=== PATIENT | male | born 1965 | race Two or more races ===

== ENCOUNTER 2016-11-13 23:32 | Emergency (ER) | payer MEDICAID ==
[~2016-11-13] VITALS: Ht 162.6 cm; Wt 81.6 kg
[~2016-11-13 23:32] MED LIST: NKM; RANITIDINE HCL150 MG ORAL; ZANTAC150 MG ORAL
--- NOTE | 2016-11-13 23:41 | Emergency Room Report ---
History of Present Illness General Source: Patient Present Illness HPI This is a 51-year-old male who is an alcoholic. He presents with chief complaint of epigastric and left-sided chest pain. Onset for last 3 days. Has been drinking heavily. He doesn't remember he was drinking today. He also has multiple IV damico in EKG leads on him. He doesn't remember which hospital he was at before. He called 911 with chief complaint of chest pain and epigastric pain. Pain is 10 out of 10. EMS gave him nitroglycerin and aspirin. Denies any nausea vomiting. Webster shaky. Denies any diaphoresis. No other complaint. Similar symptoms in the past. Allergies: Coded Allergies: No Known Allergies (Unverified , 10/01/14) Patient History Past Medical History: see triage record, old chart reviewed Past Surgical History: other Pertinent Family History: none Social History: Reports: alcohol use Immunizations: other 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: PMH: Agreed, PSxH: Agreed Review of Systems Eye: Denies: blurred vision, eye pain ENT: Denies: ear pain, nose congestion, throat swelling Respiratory: Denies: cough, shortness of breath Cardiovascular: Reports: chest pain, Denies: palpitations Gastrointestinal: Reports: abdominal pain, Denies: diarrhea, nausea, vomiting Musculoskeletal: Denies: back pain, joint pain Skin: Denies: rash Neurological: Denies: headache, numbness Endocrine: Denies: increased thirst, increased urine Hematologic/Lymphatic: Denies: easy bruising All Other Systems: negative except mentioned in HPI Physical Exam vitals with tachycardia and hypertension Sp02 EP Interpretation: reviewed, normal General Appearance: well appearing, no apparent distress, alert Head: normocephalic, atraumatic Eyes: bilateral eye EOMI, bilateral eye PERRL ENT: hearing grossly normal, normal pharynx Neck: full range of motion, supple, no meningismus Respiratory: chest non-tender, lungs clear, normal breath sounds Cardiovascular #1: regular rate, rhythm, no murmur Gastrointestinal: normal bowel sounds, no mass, no organomegaly, no bruit, non- distended, tenderness - Epigastric Musculoskeletal: back normal, gait/station normal, normal range of motion Neurologic: alert, oriented x3, other - Patient is Mildly tremulous Psychiatric: mood/affect normal Skin: warm/dry Medical Decision Making Diagnostic Impression: Primary Impression: Acute alcohol intoxication Qualified Codes: F10.120 - Alcohol abuse with intoxication, uncomplicated Additional Impressions: Acute gastritis Qualified Codes: K29.20 - Alcoholic gastritis without bleeding Chest pain Qualified Codes: R07.9 - Chest pain, unspecified Alcohol abuse Obesity (BMI 30.0-34.9) ER Course Patient presents with atypical chest pain. Most likely secondary to alcoholic gastritis and possibly reflux. No evidence of pancreatitis. Pain been ongoing for 3 days. Troponin negative. EKG unremarkable. No evidence of ACS, PE, dissection, pneumonia to name a few. Lab Results Impression labs unremarkable EKG Diagnostic Results Rate: normal, tachycardiac Rhythm: NSR ST Segments: no acute changes Rhythm Strip Diag. Results EP Interpretation: yes Rate: 100 Rhythm: NSR, no PVC's, no ectopy Chest X-Ray Diagnostic Results EP Interpretation: Yes Findings: no consolidation, no effusion, no pneumothorax, no acute cardiopulmonary disease Number of Views: 1 Status: improved Disposition: HOME, SELF-CARE Condition: Stable Scripts Chlordiazepoxide (Chlordiazepoxide HCl) 25 Mg Capsule 25 MG ORAL THREE TIMES A DAY, #15 CAP 0 Refills Prov: MUNIR JEAN M.D. 11/14/16 Additional Instructions: Stop drinking alcohol. Go to rehabilitation. Return if symptom worsen. Followup your DrGilberto in 7 days. MUNIR JEAN M.D. Nov 13, 2016 23:41
[2016-11-13] MEDS ORDERED: LORazepam Inj 2mg/ml 1ml IV ONE (23:45)
[2016-11-13] MEDS ORDERED: Pantoprazole Inj IVP ONE (23:45)
[2016-11-14] VITALS: BP 157/83
[2016-11-14 00:03] LABS: BASOPHILS % (AUTO) 0.3 % (0.0-2.0); LYMPHOCYTES % (AUTO) 10.8 % (20.0-45.0); MEAN CORPUSCULAR HEMOGLOBIN 30.2 PG (27.0-31.0); MEAN CORPUSCULAR HGB CONC 34.7 G/DL (32.0-36.0); MEAN CORPUSCULAR VOLUME 87 FL (80-99); MEAN PLATELET VOLUME 8.5 FL (6.5-10.1); MONOCYTES % (AUTO) 4.8 % (1.0-10.0); NEUTROPHILS % (AUTO) 84.1 % (45.0-75.0); PLATELET COUNT 347 K/UL (150-450); RED BLOOD COUNT 4.54 M/UL (4.70-6.10); WHITE BLOOD COUNT 14.9 K/UL (4.8-10.8)
[2016-11-14 00:13] LABS: TROPONIN I < 0.30 ng/mL (<=0.30)
[2016-11-14 00:16] LABS: ALBUMIN/GLOBULIN RATIO 1.2 (1.0-2.7); CALCIUM 7.3 mg/dL (8.6-10.2); CREATININE 1.5 mg/dL (0.7-1.2); GLOMERULAR FILTRATION RATE 49.3 mL/min (>60); POTASSIUM 3.2 mEQ/L (3.4-4.9); TOTAL PROTEIN 6.2 g/dL (6.6-8.7)
[2016-11-14] MEDS ORDERED: LIBRIUM25 MG ORAL (00:45)
[2016-11-14 02:45] VITALS: BP 149/80
[2016-11-14 05:00] VITALS: BP 142/86
--- NOTE | 2016-11-14 09:11 | Diagnostic Imaging Report ---
Indication: Chest pain Technique: XRAY CHEST 1 V Comparison: 01/25/16 Findings: There is poor inspiration with bronchovascular crowding. Cardiac silhouette is stable. There is no pneumothorax or pleural effusion. Degenerative changes of the spine are seen. Impression: Poor inspiration with bronchovascular crowding. Mild congestive changes not excluded. Clinical correlation/followup recommended.
== END 2016-11-14 05:00 | disposition home or self-care (01) ==
LOC: EDBD 23:32 → EMR 23:48
DX: K29.20 Alcoholic gastritis without bleeding (principal); F10.120 Alcohol abuse with intoxication, uncomplicated; R07.9 Chest pain, unspecified; E66.9 Obesity, unspecified; Z68.30 Body mass index [BMI] 30.0-30.9, adult
CPT/HCPCS: 36415; 71010; 80053; 83690; 84484; 85025; 96374; 96375; 99284; C9113

== ENCOUNTER 2017-02-15 18:41 | Emergency (ER) | payer MEDICAID ==
[~2017-02-15] VITALS: Ht 167.6 cm; Wt 81.6 kg
[~2017-02-15 18:41] MED LIST changes: +LIBRIUM25 MG ORAL
[2017-02-15] MEDS ORDERED: LORazepam Inj 2mg/ml 1ml IV ONE (19:00)
[2017-02-15 19:15] VITALS: BP 132/90
[2017-02-15 20:47] LABS: BASOPHILS % (AUTO) 1.1 % (0.0-2.0); EOSINOPHILS % (AUTO) 1.2 % (0.0-3.0); MEAN CORPUSCULAR HEMOGLOBIN 29.6 PG (27.0-31.0); MEAN CORPUSCULAR HGB CONC 34.6 G/DL (32.0-36.0); MEAN CORPUSCULAR VOLUME 86 FL (80-99); MEAN PLATELET VOLUME 9.1 FL (6.5-10.1); MONOCYTES % (AUTO) 4.8 % (1.0-10.0); PLATELET COUNT 149 K/UL (150-450); RED BLOOD COUNT 4.54 M/UL (4.70-6.10); RED CELL DISTRIBUTION WIDTH 13.4 % (11.6-14.8); WHITE BLOOD COUNT 7.3 K/UL (4.8-10.8)
[2017-02-15 21:08] LABS: ACETAMINOPHEN < 10 ug/mL (10-30); ALANINE AMINOTRANSFERASE 43 U/L (3-41); ANION GAP 20 (5-15); ASPARTATE AMINO TRANSFERASE 95 U/L (5-40); CALCIUM 8.4 mg/dL (8.6-10.2); CARBON DIOXIDE 23 mEQ/L (20-30); CHLORIDE 99 mEQ/L (98-107); CREATININE 0.7 mg/dL (0.7-1.2); GLOMERULAR FILTRATION RATE > 60 mL/min (>60); HEMOLYSIS 3; POTASSIUM 3.7 mEQ/L (3.4-4.9); SODIUM 142 mEQ/L (135-145); TOTAL PROTEIN 7.5 g/dL (6.6-8.7)
[2017-02-15 21:14] LABS: ALCOHOL 474 mg/dL
[2017-02-15 21:30] VITALS: BP 123/83
--- NOTE | 2017-02-15 22:11 | Emergency Room Report ---
History of Present Illness General Chief Complaint: General Complaint Source: Patient, EMS Present Illness HPI 51-year-old male presents ED for evaluation. Per EMS patient states he is withdrawing from alcohol. States his last drink was yesterday. Feel tremulous and shaky. Denies any other drug use. Denies fevers or chills. Denies nausea or vomiting. Denies chest pain or shortness of breath. no other aggravating or relieving factors. Denies any other associated symptom Allergies: Coded Allergies: No Known Allergies (Unverified , 10/01/14) Patient History Past Medical History: none Past Surgical History: none Pertinent Family History: none Social History: Reports: alcohol use, Denies: drug use, smoking Immunizations: UTD 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: PMH: Agreed, PSxH: Agreed Nursing Documentation-PMH Past Medical History: No History, Except For Review of Systems All Other Systems: negative except mentioned in HPI Physical Exam Vital Signs Date Time Temp Pulse Resp B/P Pulse Ox O2 Delivery O2 Flow Rate FiO2 02/15/17 18:41 99.0 88 18 140/96 98 Room Air Sp02 EP Interpretation: reviewed, normal General Appearance: no apparent distress, GCS 15, non-toxic, obese, other - intoxicated Head: normocephalic, atraumatic Eyes: bilateral eye PERRL, bilateral eye normal inspection ENT: hearing grossly normal, normal pharynx, no angioedema, normal voice Neck: full range of motion, supple/symm/no masses Respiratory: chest non-tender, lungs clear, normal breath sounds, speaking full sentences Cardiovascular #1: regular rate, rhythm, no edema Cardiovascular #2: 2+ carotid (R), 2+ carotid (L), 2+ radial (R), 2+ radial (L) , 2+ dorsalis pedis (R), 2+ dorsalis pedis (L) Gastrointestinal: normal bowel sounds, non tender, soft, non-distended, no guarding, no rebound Rectal: deferred Genitourinary: normal inspection, no CVA tenderness Musculoskeletal: back normal, gait/station normal, normal range of motion, non- tender, calf tenderness Neurologic: other - intoxicated Psychiatric: other - intoxicated Reflexes: 3+ bicep (R), 3+ bicep (L), 3+ tricep (R), 3+ tricep (L), 3+ knee (R) , 3+ knee (L) Skin: normal color, no rash, warm/dry, well hydrated Lymphatic: no adenopathy Medical Decision Making Diagnostic Impression: Primary Impression: Acute alcohol intoxication Labs Test 02/15/17 20:23 White Blood Count 7.3 K/UL (4.8-10.8) Red Blood Count 4.54 M/UL (4.70-6.10) Hemoglobin 13.4 G/DL (14.2-18.0) Hematocrit 38.8 % (42.0-52.0) Mean Corpuscular Volume 86 FL (80-99) Mean Corpuscular Hemoglobin 29.6 PG (27.0-31.0) Mean Corpuscular Hemoglobin Concent 34.6 G/DL (32.0-36.0) Red Cell Distribution Width 13.4 % (11.6-14.8) Platelet Count 149 K/UL (150-450) Mean Platelet Volume 9.1 FL (6.5-10.1) Neutrophils (%) (Auto) 62.0 % (45.0-75.0) Lymphocytes (%) (Auto) 31.0 % (20.0-45.0) Monocytes (%) (Auto) 4.8 % (1.0-10.0) Eosinophils (%) (Auto) 1.2 % (0.0-3.0) Basophils (%) (Auto) 1.1 % (0.0-2.0) Sodium Level 142 mEQ/L (135-145) Potassium Level 3.7 mEQ/L (3.4-4.9) Chloride Level 99 mEQ/L (98-107) Carbon Dioxide Level 23 mEQ/L (20-30) Anion Gap 20 (5-15) Blood Urea Nitrogen 12 mg/dL (7-23) Creatinine 0.7 mg/dL (0.7-1.2) Estimat Glomerular Filtration Rate > 60 mL/min (>60) Glucose Level 104 mg/dL (74-106) Calcium Level 8.4 mg/dL (8.6-10.2) Total Bilirubin 0.4 mg/dL (0.0-1.2) Aspartate Amino Transf (AST/SGOT) 95 U/L (5-40) Alanine Aminotransferase (ALT/SGPT) 43 U/L (3-41) Alkaline Phosphatase 108 U/L (40-129) Total Protein 7.5 g/dL (6.6-8.7) Albumin 3.8 g/dL (3.5-5.2) Globulin 3.7 g/dL Albumin/Globulin Ratio 1.0 (1.0-2.7) Salicylates Level < 1 mg/dL (10-30) Urine Opiates Screen Negative (NEGATIVE) Acetaminophen Level < 10 ug/mL (10-30) Urine Barbiturates Screen Negative (NEGATIVE) Phencyclidine (PCP) Screen Negative (NEGATIVE) Urine Amphetamines Screen Negative (NEGATIVE) Urine Benzodiazepines Screen Negative (NEGATIVE) Urine Cocaine Screen Negative (NEGATIVE) Urine Marijuana (THC) Screen Negative (NEGATIVE) Serum Alcohol 474 mg/dL Last Vital Signs Date Time Temp Pulse Resp B/P Pulse Ox O2 Delivery O2 Flow Rate FiO2 02/15/17 21:30 99.0 82 20 123/83 100 Room Air Status: improved Disposition: HOME, SELF-CARE Condition: Stable RAVEN BURNS M.D. Feb 15, 2017 22:11
[2017-02-15 22:41] VITALS: BP 131/76
[2017-02-15 22:42] VITALS: BP 123/83
--- NOTE | 2017-02-17 14:01 | Emergency Room Report ---
Physical Exam Vital Signs Date Time Temp Pulse Resp B/P Pulse Ox O2 Delivery O2 Flow Rate FiO2 02/15/17 18:41 99.0 88 18 140/96 98 Room Air Medical Decision Making Diagnostic Impression: Primary Impression: Acute alcohol intoxication Qualified Codes: F10.929 - Alcohol use, unspecified with intoxication, unspecified ER Course Hospital Course 51-year-old male presents ED complaining of shaking, stating he is in withdrawal. Chronic history of alcohol use Differential diagnoses include: Alcohol intoxication, drug abuse, opioid withdrawal, alcohol withdrawal, dehydration, drug seeking behavior Clinical course Patient placed on stretcher. On sandblaster glass. After initial history and physical I ordered labs, IV fluids, Ativan Labs reviewed-electrolytes okay, hemoglobin/hematocrit stable, no leukocytosis, alcohol level > 400, aspirin/Tylenol levels negative patient allowed to sleep. no signs of acute withdrawal or DTs. patient can be safely discharged to home i. I feel this is a highly complex case requiring extensive working including EKG/Rhythm strip, Xray/CT/US, Blood/urine lab work, repeat exams while in ED, and administration of strong opiates/narcotics for pain control, admission to hospital or close patient follow up. Diagnosis - alcohol intoxication Stable and discharged to home. Followup with PMD. Return to ED if symptoms recur or worsen Labs Test 02/15/17 20:23 White Blood Count 7.3 K/UL (4.8-10.8) Red Blood Count 4.54 M/UL (4.70-6.10) Hemoglobin 13.4 G/DL (14.2-18.0) Hematocrit 38.8 % (42.0-52.0) Mean Corpuscular Volume 86 FL (80-99) Mean Corpuscular Hemoglobin 29.6 PG (27.0-31.0) Mean Corpuscular Hemoglobin Concent 34.6 G/DL (32.0-36.0) Red Cell Distribution Width 13.4 % (11.6-14.8) Platelet Count 149 K/UL (150-450) Mean Platelet Volume 9.1 FL (6.5-10.1) Neutrophils (%) (Auto) 62.0 % (45.0-75.0) Lymphocytes (%) (Auto) 31.0 % (20.0-45.0) Monocytes (%) (Auto) 4.8 % (1.0-10.0) Eosinophils (%) (Auto) 1.2 % (0.0-3.0) Basophils (%) (Auto) 1.1 % (0.0-2.0) Sodium Level 142 mEQ/L (135-145) Potassium Level 3.7 mEQ/L (3.4-4.9) Chloride Level 99 mEQ/L (98-107) Carbon Dioxide Level 23 mEQ/L (20-30) Anion Gap 20 (5-15) Blood Urea Nitrogen 12 mg/dL (7-23) Creatinine 0.7 mg/dL (0.7-1.2) Estimat Glomerular Filtration Rate > 60 mL/min (>60) Glucose Level 104 mg/dL (74-106) Calcium Level 8.4 mg/dL (8.6-10.2) Total Bilirubin 0.4 mg/dL (0.0-1.2) Aspartate Amino Transf (AST/SGOT) 95 U/L (5-40) Alanine Aminotransferase (ALT/SGPT) 43 U/L (3-41) Alkaline Phosphatase 108 U/L (40-129) Total Protein 7.5 g/dL (6.6-8.7) Albumin 3.8 g/dL (3.5-5.2) Globulin 3.7 g/dL Albumin/Globulin Ratio 1.0 (1.0-2.7) Salicylates Level < 1 mg/dL (10-30) Urine Opiates Screen Negative (NEGATIVE) Acetaminophen Level < 10 ug/mL (10-30) Urine Barbiturates Screen Negative (NEGATIVE) Phencyclidine (PCP) Screen Negative (NEGATIVE) Urine Amphetamines Screen Negative (NEGATIVE) Urine Benzodiazepines Screen Negative (NEGATIVE) Urine Cocaine Screen Negative (NEGATIVE) Urine Marijuana (THC) Screen Negative (NEGATIVE) Serum Alcohol 474 mg/dL Last Vital Signs Date Time Temp Pulse Resp B/P Pulse Ox O2 Delivery O2 Flow Rate FiO2 02/15/17 22:42 99.0 82 20 123/83 100 Room Air Status: improved Disposition: HOME, SELF-CARE Condition: Stable Referrals: NOT CHOSEN IPA/,REFERRING (PCP) Patient Instructions: Alcohol Abuse and Nutrition RAVEN BURNS M.D. Feb 17, 2017 14:01
== END 2017-02-15 22:42 | disposition home or self-care (01) ==
LOC: EDBD 18:41 → EMR 19:20
DX: F10.929 Alcohol use, unspecified with intoxication, unspecified (principal)
CPT/HCPCS: 36415; 80053; 80300; 80329; 85025; 96360; 96374

== ENCOUNTER 2017-12-30 19:08 | Inpatient (IN) | payer MEDICAID, OTHER ==
[~2017-12-30] VITALS: Ht 167.6 cm; Wt 89.4 kg
[~2017-12-30 19:08] MED LIST changes: +ADVIL200 M2 ORAL; +ANTABUSE; +MAALOX ADVANCE770 ML PO; +MULTI VITAMIN DAILY; +PEPCID40 MG PO; +UNOBMED
[2017-12-30 19:15] VITALS: BP 163/96
[2017-12-30] MEDS ORDERED: Pantoprazole Inj IV ONE (19:30)
--- NOTE | 2017-12-30 19:49 | Emergency Room Report ---
History of Present Illness General Chief Complaint: Gastrointestinal Bleed Source: Patient, EMS Present Illness HPI 52-year-old male presents ED for evaluation. Patient brought in by EMS complaining of abdominal pain with vomiting blood and blood in stool. Started today. Patient describes pain as epigastric, burning, nonradiating. States he' s been drinking every day. Denies any blood thinners. Denies chest pain or shortness of breath. Denies any drug use. No other aggravating relieving factors. Denies any other associated symptoms Allergies: Coded Allergies: No Known Allergies (Unverified , 10/05/14) Patient History Past Medical History: HTN, psych hx Past Surgical History: none Pertinent Family History: none Social History: Reports: alcohol use; Denies: smoking, drug use Immunizations: UTD 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: PMH: Agreed; PSxH: Agreed Nursing Documentation-PMH Past Medical History: No History, Except For Hx Cardiac Problems: Yes Hx Hypertension: Yes Hx Cancer: No Hx Gastrointestinal Problems: Yes History Of Psychiatric Problem: Yes - DEPRESSION Hx Neurological Problems: Yes Hx Tremors: Yes Hx Dizziness: Yes Hx Syncope: Yes Hx Headaches: Yes Review of Systems All Other Systems: negative except mentioned in HPI Physical Exam Vital Signs Date Time Temp Pulse Resp B/P (MAP) Pulse Ox O2 Delivery O2 Flow Rate FiO2 12/30/18 19:03 98.3 102 20 132/81 98 Room Air 98.2 Sp02 EP Interpretation: reviewed, normal General Appearance: no apparent distress, alert, GCS 15, non-toxic, obese Head: normocephalic, atraumatic Eyes: bilateral eye normal inspection, bilateral eye PERRL ENT: hearing grossly normal, normal pharynx, no angioedema, normal voice Neck: full range of motion, supple/symm/no masses Respiratory: chest non-tender, lungs clear, normal breath sounds, speaking full sentences Cardiovascular #1: no edema, tachycardia Cardiovascular #2: 2+ carotid (R), 2+ carotid (L), 2+ radial (R), 2+ radial (L) , 2+ dorsalis pedis (R), 2+ dorsalis pedis (L) Gastrointestinal: normal bowel sounds, soft, non-distended, no guarding, no rebound, tenderness - epigatric Rectal: deferred Genitourinary: normal inspection, no CVA tenderness Musculoskeletal: back normal, gait/station normal, normal range of motion, non- tender Neurologic: alert, oriented x3, responsive, motor strength/tone normal, sensory intact, speech normal Psychiatric: judgement/insight normal, memory normal, mood/affect normal, no suicidal/homicidal ideation Reflexes: 3+ bicep (R), 3+ bicep (L), 3+ tricep (R), 3+ tricep (L), 3+ knee (R) , 3+ knee (L) Skin: normal color, no rash, warm/dry, well hydrated Lymphatic: no adenopathy Medical Decision Making Diagnostic Impression: Primary Impression: GI bleed Qualified Codes: K92.0 - Hematemesis Additional Impression: Alcohol withdrawal Qualified Codes: F10.230 - Alcohol dependence with withdrawal, uncomplicated ER Course Hospital Course 52-year-old male presents ED with vomiting blood and blood in stool. History of alcohol abuse. Differential diagnoses include: Alcohol intoxication, UGIB, LGIB, alcohol withdrawal, dehydration, drug seeking behavior Clinical course Patient placed on stretcher. On air sampling and monitoring. After initial history and physical I ordered labs, IV fluids, Ativan, Protonix, Zofran, EKG Labs reviewed-electrolytes okay, hemoglobin/hematocrit stable, no leukocytosis, alcohol level > 300, lfts elevated EKG - sinus tachycardia, no acute ischemic changes intepreted by me Tachycardia slowly resolving with IV hydration, Ativan. Case discussed with Dr. Wilson and he agreed to except the patient to his service for further care and support i. I feel this is a highly complex case requiring extensive working including EKG/Rhythm strip, Xray/CT/US, Blood/urine lab work, repeat exams while in ED, and administration of strong opiates/narcotics for pain control, admission to hospital or close patient follow up. Diagnosis - alcohol withdrawal, UGIB Admitted to telemetry in serious condition Labs Test 12/30/17 19:30 White Blood Count 6.7 K/UL (4.8-10.8) Red Blood Count 5.04 M/UL (4.70-6.10) Hemoglobin 14.4 G/DL (14.2-18.0) Hematocrit 43.1 % (42.0-52.0) Mean Corpuscular Volume 86 FL (80-99) Mean Corpuscular Hemoglobin 28.5 PG (27.0-31.0) Mean Corpuscular Hemoglobin Concent 33.4 G/DL (32.0-36.0) Red Cell Distribution Width 13.1 % (11.6-14.8) Platelet Count 216 K/UL (150-450) Mean Platelet Volume 8.4 FL (6.5-10.1) Neutrophils (%) (Auto) 52.5 % (45.0-75.0) Lymphocytes (%) (Auto) 32.8 % (20.0-45.0) Monocytes (%) (Auto) 8.0 % (1.0-10.0) Eosinophils (%) (Auto) 5.2 % (0.0-3.0) Basophils (%) (Auto) 1.4 % (0.0-2.0) Prothrombin Time 9.4 SEC (9.30-11.50) Prothromb Time International Ratio 0.9 (0.9-1.1) Activated Partial Thromboplast Time 25 SEC (23-33) Urine Color Sheba Urine Appearance Clear Urine pH 6 (4.5-8.0) Urine Specific Chapman 1.015 (1.005-1.035) Urine Protein 2+ (NEGATIVE) Urine Glucose (UA) Negative (NEGATIVE) Urine Ketones Negative (NEGATIVE) Urine Occult Blood 1+ (NEGATIVE) Urine Nitrite Negative (NEGATIVE) Urine Bilirubin Negative (NEGATIVE) Urine Ictotest Negative Urine Urobilinogen Normal MG/DL (0.0-1.0) Urine Leukocyte Esterase Negative (NEGATIVE) Urine RBC 2-4 /HPF (0 - 0) Urine WBC 0-2 /HPF (0 - 0) Urine Squamous Epithelial Cells None /LPF (NONE/OCC) Urine Bacteria Few /HPF (NONE) Sodium Level 139 MMOL/L (136-145) Potassium Level 4.0 MMOL/L (3.5-5.1) Chloride Level 102 MMOL/L (98-107) Carbon Dioxide Level 24 MMOL/L (21-32) Anion Gap 13 mmol/L (5-15) Blood Urea Nitrogen 20 mg/dL (7-18) Creatinine 0.8 MG/DL (0.55-1.30) Estimat Glomerular Filtration Rate > 60 mL/min (>60) Glucose Level 125 MG/DL (74-106) Calcium Level 8.6 MG/DL (8.5-10.1) Total Bilirubin 0.3 MG/DL (0.2-1.0) Aspartate Amino Transf (AST/SGOT) 88 U/L (15-37) Alanine Aminotransferase (ALT/SGPT) 74 U/L (12-78) Alkaline Phosphatase 119 U/L (46-116) Total Creatine Kinase 557 U/L (26-308) Creatine Kinase MB 5.7 NG/ML (0.0-3.6) Creatine Kinase MB Relative Index 1.0 Total Protein 7.8 G/DL (6.4-8.2) Albumin 3.5 G/DL (3.4-5.0) Globulin 4.3 g/dL Albumin/Globulin Ratio 0.8 (1.0-2.7) Lipase 291 U/L (73-393) Serum Alcohol 392 mg/dL EKG Diagnostic Results Rate: tachycardiac Rhythm: NSR ST Segments: no acute changes ASA given to the pt in ED: No Rhythm Strip Diag. Results EP Interpretation: yes Rhythm: NSR, no PVC's, no ectopy Last Vital Signs Date Time Temp Pulse Resp B/P (MAP) Pulse Ox O2 Delivery O2 Flow Rate FiO2 12/30/17 19:03 98.3 102 20 132/81 98 Room Air 98.2 Status: improved Disposition: ADMITTED INPATIENT Condition: Serious Mode Ballesteros MD Dec 30, 2017 19:49
[2017-12-30] MEDS ORDERED: LORazepam Inj 2mg/ml 1ml IV ONE (20:00)
[2017-12-30 20:25] LABS: BASOPHILS % (AUTO) 1.4 % (0.0-2.0); EOSINOPHILS % (AUTO) 5.2 % (0.0-3.0); HEMATOCRIT 43.1 % (42.0-52.0); HEMOGLOBIN 14.4 G/DL (14.2-18.0); LYMPHOCYTES % (AUTO) 32.8 % (20.0-45.0); MEAN CORPUSCULAR VOLUME 86 FL (80-99); NEUTROPHILS % (AUTO) 52.5 % (45.0-75.0); PLATELET COUNT 216 K/UL (150-450); RED BLOOD COUNT 5.04 M/UL (4.70-6.10); RED CELL DISTRIBUTION WIDTH 13.1 % (11.6-14.8); WHITE BLOOD COUNT 6.7 K/UL (4.8-10.8)
[2017-12-30 20:26] LABS: APPEARANCE,URINE CLEAR; BILIRUBIN, URINE NEGATIVE (NEGATIVE); COLOR,URINE AMBER; GLUCOSE, URINE (UA) NEGATIVE (NEGATIVE); KETONES,URINE NEGATIVE (NEGATIVE); LEUKOCYTE ESTERASE ,URINE NEGATIVE (NEGATIVE); NITRITE,URINE NEGATIVE (NEGATIVE); PH,URINE 6 (4.5-8.0); PROTEIN,URINE 2+ (NEGATIVE); UROBILINOGEN,URINE NORMAL MG/DL (0.0-1.0)
[2017-12-30 20:33] LABS: INR 0.9 (0.9-1.1)
[2017-12-30 20:34] LABS: ANION GAP 13 mmol/L (5-15); BLOOD UREA NITROGEN 20 mg/dL (7-18); CALCIUM 8.6 MG/DL (8.5-10.1); CARBON DIOXIDE 24 MMOL/L (21-32); CHLORIDE 102 MMOL/L (98-107); CREATININE 0.8 MG/DL (0.55-1.30); SODIUM 139 MMOL/L (136-145)
[2017-12-30 20:47] LABS: ALANINE AMINOTRANSFERASE 74 U/L (12-78); ALBUMIN 3.5 G/DL (3.4-5.0); ALBUMIN/GLOBULIN RATIO 0.8 (1.0-2.7); ALKALINE PHOSPHATASE 119 U/L (46-116); ASPARTATE AMINO TRANSFERASE 88 U/L (15-37); BILIRUBIN,TOTAL 0.3 MG/DL (0.2-1.0); CKMB 5.7 NG/ML (0.0-3.6); CREATINE KINASE 557 U/L (26-308)
[2017-12-30] MEDS ORDERED: Morphine Sulfate 4mg/ml Inj IVP ONE (21:30)
[2017-12-30 22:00] VITALS: BP 111/81
[2017-12-30] MEDS: D5 1/2NS 1,000 ML IV SCH (23:00)
[2017-12-30] MEDS ORDERED: D5 1/2NS 1,000 ML IV SCH (23:00)
[2017-12-30] MEDS: Thiamine 100mg tab ORAL SCH (23:36)
[2017-12-31] VITALS: BP 127/75
[2017-12-31 04:00] VITALS: BP 144/94
[2017-12-31] MEDS: LORazepam Inj 2mg/ml 1ml IV PRN ×4 (04:10→20:21)
[2017-12-31] MEDS: D5 1/2NS 1,000 ML IV SCH ×3 (05:35→19:00)
[2017-12-31 07:41] LABS: ALANINE AMINOTRANSFERASE 63 U/L (12-78); ALBUMIN 3.1 G/DL (3.4-5.0); ALBUMIN/GLOBULIN RATIO 0.8 (1.0-2.7); ALKALINE PHOSPHATASE 103 U/L (46-116); ANION GAP 10 mmol/L (5-15); ASPARTATE AMINO TRANSFERASE 80 U/L (15-37); BILIRUBIN,TOTAL 0.5 MG/DL (0.2-1.0); BLOOD UREA NITROGEN 16 mg/dL (7-18); CALCIUM 7.8 MG/DL (8.5-10.1); CARBON DIOXIDE 26 MMOL/L (21-32); CHLORIDE 101 MMOL/L (98-107); CREATINE KINASE 416 U/L (26-308); CREATININE 0.8 MG/DL (0.55-1.30); POTASSIUM 3.6 MMOL/L (3.5-5.1); SODIUM 137 MMOL/L (136-145)
[2017-12-31 08:00] VITALS: BP 156/92
[2017-12-31] MEDS: Pantoprazole Inj IVP SCH (09:00)
[2017-12-31] MEDS: Thiamine 100mg tab ORAL SCH (09:00)
[2017-12-31 09:02] LABS: BASOPHILS % (AUTO) 1.2 % (0.0-2.0); EOSINOPHILS % (AUTO) 5.6 % (0.0-3.0); HEMATOCRIT 37.4 % (42.0-52.0); LYMPHOCYTES % (AUTO) 30.5 % (20.0-45.0); MEAN CORPUSCULAR VOLUME 85 FL (80-99); MONOCYTES % (AUTO) 6.2 % (1.0-10.0); NEUTROPHILS % (AUTO) 56.6 % (45.0-75.0); PLATELET COUNT 159 K/UL (150-450); RED BLOOD COUNT 4.38 M/UL (4.70-6.10); WHITE BLOOD COUNT 6.2 K/UL (4.8-10.8)
[2017-12-31 12:00] VITALS: BP 130/81
[2017-12-31] MEDS: HYDROcodone/Acetamin 10/325 tab ORAL PRN ×2 (12:57→21:34)
[2017-12-31] MEDS ORDERED: D5 1/2NS 1000ml IV ONE (15:50)
[2017-12-31] MEDS ORDERED: Tubing IV Secondary IV ONE (15:50)
[2017-12-31 16:00] VITALS: BP 140/91
[2017-12-31 20:00] VITALS: BP 160/96
--- NOTE | 2017-12-31 23:45 | Progress Note ---
DATE: 12/31/2017 INTERNAL MEDICINE PROGRESS NOTE SUBJECTIVE: The patient is tremulous. He complains of abdominal pain. No nausea or vomiting noted. Stools are normal with no blood. OBJECTIVE: VITAL SIGNS: Blood pressure 140/91, pulse 79, respirations 18, and afebrile. NECK: Supple. LUNGS: Clear. CARDIAC: Regular. ABDOMEN: Soft. Slightly distended. Diffusely tender. No guarding or rebound. EXTREMITIES: With no edema. LABORATORY DATA: CK is down to 416. Albumin is 3.1. BUN 16 and creatinine 0.8. Potassium 3.6. White count 6.2 and hemoglobin 13. IMPRESSION: 1. No signs of recurring gastrointestinal bleed. 2. Alcohol withdrawal symptoms. 3. Alcoholism. 4. Alcohol intoxication. 5. History of hypertension. PLAN: 1. Continue hydration. 2. Vitamin supplementation. 3. Withdrawal precautions. 4. Serial hemoglobin. 5. Proton pump inhibitor. 6. Monitor and replace electrolytes accordingly. 7. Not stable for discharge. Carrillo Wilson M.D. DR: ZORA JOB#: [id number] CC:
[2018-01-01] VITALS: BP 150/119
--- NOTE | 2018-01-01 01:45 | History and Physical Report ---
DATE OF ADMISSION: 12/30/2017 REASON FOR ADMISSION: GI bleed and alcohol intoxication. HISTORY OF PRESENT ILLNESS: This is a 52-year-old male. He was brought into the emergency room by paramedics complaining of abdominal pain. He apparently vomited some blood and had some bloody stool today. He also has had burning midepigastric pain. He has been drinking daily for several weeks. No other constitutional symptoms noted. No illicit drug use noted. PAST MEDICAL HISTORY: Hypertension and depression. MEDICATIONS: Prior to admission, none. ALLERGIES: None. SOCIAL HISTORY: Alcoholism. Nonsmoker. No substance abuse. REVIEW OF SYSTEMS: A 10-point review of systems performed. All systems negative other than noted above. PHYSICAL EXAMINATION: VITAL SIGNS: Afebrile, blood pressure 132/81, pulse 102, respiratory rate 20, and room air oxygen 98% saturation. HEENT: Normocephalic and atraumatic. Conjunctivae pink. Sclerae are anicteric. Oropharynx clear. Mucous membranes moist. NECK: Supple. Jugular venous pressure normal. LUNGS: Clear. CARDIAC: Regular rhythm and rate. Normal S1 and S2. No murmur, rub, or gallop. ABDOMEN: Somewhat distended. Midepigastric tenderness. No guarding or rebound. Soft and no ascites. No CVA tenderness. SKIN: Without rashes or ecchymoses. EXTREMITIES: With no edema. NEUROLOGIC: Some resting tremor. No asterixis. LABORATORY AND DIAGNOSTIC DATA: White count 6.7 and hemoglobin 14.4. Potassium 4, BUN 20, and creatinine 0.8. AST and ALT 88/74 and alkaline phosphatase 119. CK 567. Albumin is 3.5. Alcohol level was over 300. IMPRESSION: 1. Upper GI bleeding, likely due to alcoholism. 2. Acute alcohol intoxication. 3. Alcoholism. 4. Rhabdomyolysis. 5. Transaminitis. PLAN: Withdrawal precautions. Volume resuscitation. Vitamin supplementation. Benzodiazepine p.r.n. for withdrawal. H2 blockade. Liquid diet. Serial hemoglobin. We will follow. Carrillo Wilson M.D. DR: FABRIZIO JOB#: [id number] CC:
[2018-01-01] MEDS: D5 1/2NS 1,000 ML IV SCH ×2 (02:55→12:35)
[2018-01-01 04:00] VITALS: BP 113/93
[2018-01-01 08:00] VITALS: BP 162/92
[2018-01-01] MEDS: Pantoprazole Inj IVP SCH (09:59)
[2018-01-01] MEDS: Thiamine 100mg tab ORAL SCH (09:59)
[2018-01-01 12:00] VITALS: BP 160/96
--- NOTE | 2018-01-03 17:12 | Discharge Summary ---
Discharge Summary Discharge Summary Discharge Summary DATE OF ADMISSION: 12/30/2017 DATE OF DISCHARGE: 01/01/2018 BRIEF HOSPITAL COURSE: Patient is a 52-year-old male, he was brought into emergency room by paramedics complaining of abdominal pain. He apparently vomited blood and had bloody stool. He also complained of burning mid epigastric pain. He had been drinking daily for several weeks. He denied any illicit drug use. He has medical history significant for hypertension and depression. He has medical history significant for depression and hypertension. On evaluation at ED, WBC was 6.7, hemoglobin 14.4, alcohol level was over 300. AST 88, ALT 74, alkaline phosphatase 119. CK 567. BUN 14, creatinine 0.8. He was admitted for upper GI bleed likely due to alcoholism. He was placed on withdrawal precautions and was given volume resuscitation. He was placed on liquid diet. He was given thiamine and folic acid, he was given medication replacements, he was placed on lorazepam prn.. Treatment was not carried out as patient left AGAINST MEDICAL ADVICE. FINAL DIAGNOSES: GI bleed possibly due to alcoholism Alcohol withdrawal symptoms Alcoholism Alcohol intoxication History of hypertension Rhabdomyolysis Transaminitis DISPOSITION: Patient left AMA I have been assigned to dictate discharge summary on this account, and I was not involved in the patient's management. Oliva Melendrez NP Jan 03, 2018 17:12
== END 2018-01-01 13:08 | disposition left against medical advice (07) | DRG 253 ==
LOC: EDBD 19:08 → EMR 19:46 → MERGE 20:30 → 2E 20:30 → EDBEDREQ 20:54
DX: K92.2 Gastrointestinal hemorrhage, unspecified (principal); M62.82 Rhabdomyolysis; I10 Essential (primary) hypertension; F10.239 Alcohol dependence with withdrawal, unspecified; F10.229 Alcohol dependence with intoxication, unspecified; R74.0 Nonspecific elevation of levels of transaminase and lactic acid dehydrogenase [LDH]
CPT/HCPCS: 36415; 80053; 80329; 81003; 82330; 82550; 82553; 83690; 84443; 85025; 85610; 85730; 86850; 86900; 86901; 93005; 99285; J2405

== ENCOUNTER 2018-02-13 06:07 | Inpatient (IN) | payer OTHER ==
[~2018-02-13] VITALS: Ht 160 cm; Wt 95.0 kg
[2018-02-13 06:15] VITALS: BP 140/97
[2018-02-13] MEDS ORDERED: Morphine Sulfate 4mg/ml Inj IVP ONE ×2 (06:30→14:15)
--- NOTE | 2018-02-13 06:35 | Emergency Room Report ---
History of Present Illness General Chief Complaint: Alcohol Intoxication Source: Patient, EMS Present Illness HPI The patient presents with abdominal pain. He's been drinking heavily for 3 weeks. He's been drinking hard liquor. He's had pancreatitis in the past and complains about epigastric pain. He states it's 9/10 and constant. It radiates somewhat to his back but is mainly in his stomach. He also states he' s been vomiting red material and also when he moves his bowels it is also read. In addition when he urinates he states is also red. He states he is passing blood clots per rectum. The patient denies any fevers, chills, cough, extremity pain, calf pain, swelling, loss of consciousness or seizures. He was admitted in December with alleged GI bleed. 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: PMH: Agreed; PSxH: Agreed Nursing Documentation-PMH Past Medical History: No History, Except For Hx Hypertension: Yes Hx Cancer: No Hx Gastrointestinal Problems: Yes - Pancreatitis Hx Neurological Problems: Yes Hx Tremors: Yes Hx Dizziness: Yes Hx Syncope: Yes - related to EtOH Hx Headaches: Yes Review of Systems All Other Systems: negative except mentioned in HPI Physical Exam Vital Signs Date Time Temp Pulse Resp B/P (MAP) Pulse Ox O2 Delivery O2 Flow Rate FiO2 02/13/18 06:00 98.2 87 16 155/97 98 Room Air 98.2 Sp02 EP Interpretation: reviewed, normal General Appearance: well appearing, no apparent distress, GCS 15 Head: normocephalic Eyes: bilateral eye PERRL, bilateral eye Scleral Injection ENT: moist mucus membranes Neck: supple Respiratory: lungs clear, normal breath sounds Cardiovascular #1: regular rate, rhythm Cardiovascular #2: 2+ radial (R) Gastrointestinal: normal inspection, normal bowel sounds, no mass, non- distended, no rebound, guarding - Epigastric, tenderness, overweight Rectal: heme negative stool - yellow Musculoskeletal: back normal, normal range of motion Neurologic: alert, oriented x3, 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 The differential includes gastritis, peptic ulcer disease, GERD, pancreatitis amongst others. Evaluation will be with EKG, chest and abdominal x-rays, labs. The patient will be treated with IV hydration, Pepcid, Zofran and morphine. Stool is guaiac negative although he claims he is vomiting and passing blood in stool and urine. The patient is improved with pain medication and Pepcid but still complains of severe pain. Labs are significant for normal lipase and blood alcohol of greater than 400. White count and hemoglobin/hematocrit are normal. EKG no injury. Chest x-ray unremarkable. Abdominal film with paucity of gas and large liver. Patient observed over a substantial period of time. He is reevaluated and still has significant abdominal pain with guarding without rebound - the pain is epigastric. Due to the severe nature of the pain the patient will be admitted to the hospital for observation. There is a possibility that he could have some withdrawal from alcohol even though he claims he has only been using heavily for the last [address] Rodriguez for admission. He requested consult by Dr. Frye ( contacted and agreed to see patient). Laboratory Tests Test 02/13/18 06:15 02/13/18 10:00 White Blood Count 8.3 K/UL (4.8-10.8) Red Blood Count 5.47 M/UL (4.70-6.10) Hemoglobin 15.6 G/DL (14.2-18.0) Hematocrit 45.8 % (42.0-52.0) Mean Corpuscular Volume 84 FL (80-99) Mean Corpuscular Hemoglobin 28.6 PG (27.0-31.0) Mean Corpuscular Hemoglobin Concent 34.1 G/DL (32.0-36.0) Red Cell Distribution Width 12.7 % (11.6-14.8) Platelet Count 337 K/UL (150-450) Mean Platelet Volume 8.7 FL (6.5-10.1) Neutrophils (%) (Auto) 50.0 % (45.0-75.0) Lymphocytes (%) (Auto) 43.0 % (20.0-45.0) Monocytes (%) (Auto) 4.6 % (1.0-10.0) Eosinophils (%) (Auto) 1.0 % (0.0-3.0) Basophils (%) (Auto) 1.4 % (0.0-2.0) Prothrombin Time 11.0 SEC (9.30-11.50) Prothrombin Time INR 1.1 (0.9-1.1) PTT 27 SEC (23-33) Sodium Level 135 MMOL/L (136-145) L Potassium Level 3.9 MMOL/L (3.5-5.1) Chloride Level 96 MMOL/L (98-107) L Carbon Dioxide Level 26 MMOL/L (21-32) Anion Gap 13 mmol/L (5-15) Blood Urea Nitrogen 24 mg/dL (7-18) H Creatinine 1.0 MG/DL (0.55-1.30) Estimate Glomerular Filtration Rate > 60 mL/min (>60) Glucose Level 137 MG/DL (74-106) H Calcium Level 8.0 MG/DL (8.5-10.1) L Total Bilirubin 0.5 MG/DL (0.2-1.0) Aspartate Amino Transferase (AST) 73 U/L (15-37) H Alanine Aminotransferase (ALT) 70 U/L (12-78) Alkaline Phosphatase 135 U/L (46-116) H Troponin I 0.029 ng/mL (0.000-0.056) Total Protein 8.1 G/DL (6.4-8.2) Albumin 3.8 G/DL (3.4-5.0) Globulin 4.3 g/dL Albumin/Globulin Ratio 0.9 (1.0-2.7) L Lipase 315 U/L (73-393) Serum Alcohol 418 mg/dL Urine Color Pale yellow Urine Appearance Clear Urine pH 6 (4.5-8.0) Urine Specific [place] 1.015 (1.005-1.035) Urine Protein 1+ (NEGATIVE) H Urine Glucose (UA) Negative (NEGATIVE) Urine Ketones Negative (NEGATIVE) Urine Occult Blood Negative (NEGATIVE) Urine Nitrite Negative (NEGATIVE) Urine Bilirubin Negative (NEGATIVE) Urine Urobilinogen Normal MG/DL (0.0-1.0) Urine Leukocyte Esterase Negative (NEGATIVE) Urine RBC 0-2 /HPF (0 - 0) H Urine WBC 0-2 /HPF (0 - 0) Urine Squamous Epithelial Cells Occasional /LPF Urine Bacteria Occasional /HPF (NONE) Urine Opiates Screen Positive (NEGATIVE) H Urine Barbiturates Screen Negative (NEGATIVE) Phencyclidine (PCP) Screen Negative (NEGATIVE) Urine Amphetamines Screen Negative (NEGATIVE) Urine Benzodiazepines Screen Negative (NEGATIVE) Urine Cocaine Screen Negative (NEGATIVE) Urine Marijuana (THC) Screen Negative (NEGATIVE) EKG Diagnostic Results Rate: normal Rhythm: NSR ST Segments: no acute changes Rhythm Strip Diag. Results EP Interpretation: yes Rhythm: NSR, no PVC's Chest X-Ray Diagnostic Results Chest X-Ray Diagnostic Results : Chest X-Ray Ordered: Yes # of Views/Limited/Complete: 1 View Indication: Other EP Interpretation: Yes Interpretation: no consolidation, no effusion, no pneumothorax Impression: No acute disease Electronically Signed by: Electronically signed by Carrillo Hill MD Other X-Ray Diagnostic Results Other X-Ray Diagnostic Results : X-Ray ordered: Abdomen # of Views/Limited Vs Complete: 1 View Indication: Pain EP Interpretation: Yes Interpretation: nonspecific bowel gas, no sbo, other - Enlarged liver Impression: Other Electronically Signed by: Electronically signed by Carrillo Hill MD Last Vital Signs Date Time Temp Pulse Resp B/P (MAP) Pulse Ox O2 Delivery O2 Flow Rate FiO2 02/13/18 20:23 97.9 83 19 147/85 99 97.9 02/13/18 18:27 Room Air Status: improved Disposition: ADMITTED INPATIENT Condition: Serious Carrillo Hill M.D. Feb 13, 2018 06:35
[2018-02-13 06:52] LABS: INR 1.1 (0.9-1.1)
[2018-02-13 06:56] LABS: BASOPHILS % (AUTO) 1.4 % (0.0-2.0); HEMATOCRIT 45.8 % (42.0-52.0); HEMOGLOBIN 15.6 G/DL (14.2-18.0); MEAN CORPUSCULAR VOLUME 84 FL (80-99); MONOCYTES % (AUTO) 4.6 % (1.0-10.0); PLATELET COUNT 337 K/UL (150-450); RED BLOOD COUNT 5.47 M/UL (4.70-6.10); RED CELL DISTRIBUTION WIDTH 12.7 % (11.6-14.8); WHITE BLOOD COUNT 8.3 K/UL (4.8-10.8)
[2018-02-13 07:08] LABS: ANION GAP 13 mmol/L (5-15); BLOOD UREA NITROGEN 24 mg/dL (7-18); CARBON DIOXIDE 26 MMOL/L (21-32); CHLORIDE 96 MMOL/L (98-107); POTASSIUM 3.9 MMOL/L (3.5-5.1); SODIUM 135 MMOL/L (136-145)
[2018-02-13 07:14] LABS: ALANINE AMINOTRANSFERASE 70 U/L (12-78); ALBUMIN 3.8 G/DL (3.4-5.0); ALBUMIN/GLOBULIN RATIO 0.9 (1.0-2.7); ALKALINE PHOSPHATASE 135 U/L (46-116); ASPARTATE AMINO TRANSFERASE 73 U/L (15-37); BILIRUBIN,TOTAL 0.5 MG/DL (0.2-1.0)
[2018-02-13 08:23] VITALS: BP 145/96
[2018-02-13 10:12] LABS: APPEARANCE,URINE CLEAR; BILIRUBIN, URINE NEGATIVE (NEGATIVE); COLOR,URINE PALE YELLOW; GLUCOSE, URINE (UA) NEGATIVE (NEGATIVE); KETONES,URINE NEGATIVE (NEGATIVE); LEUKOCYTE ESTERASE ,URINE NEGATIVE (NEGATIVE); NITRITE,URINE NEGATIVE (NEGATIVE); PH,URINE 6 (4.5-8.0); PROTEIN,URINE 1+ (NEGATIVE); UROBILINOGEN,URINE NORMAL MG/DL (0.0-1.0)
[2018-02-13 11:49] VITALS: BP 152/91
--- NOTE | 2018-02-13 13:44 | Diagnostic Imaging Report ---
Indication: Abdominal pain Technique: Supine view of the abdomen Comparison: none Findings: Exam is limited due to patient body habitus, portable technique. Bowel gas pattern is unremarkable. The liver equivocally appears enlarged. No unusual masses or calcifications. Impression: No acute process Possible hepatomegaly This agrees with the preliminary interpretation provided by the emergency room physician
--- NOTE | 2018-02-13 13:45 | Diagnostic Imaging Report ---
Indication: Chest and abdominal pain Technique: One view of the chest Comparison: 11/13/2016 Findings: The heart is mildly enlarged. The aorta is tortuous. The lungs and pleural spaces are clear. There is no significant interim change Impression: No acute process This agrees with the preliminary interpretation provided by the emergency room physician
[2018-02-13 16:54] VITALS: BP 129/71
[2018-02-13] MEDS ORDERED: CALCIUM500 M3 PO (17:34)
[2018-02-13] MEDS ORDERED: MULTIVITAMINS1 EAC2 ORAL (17:34)
[2018-02-13 18:26] VITALS: BP_SYST 121; BP_SYST 129; BP_DIAS 69; BP_DIAS 71
[2018-02-13 20:23] VITALS: BP 147/85
[2018-02-13] MEDS: Morphine Sulfate 4mg/ml Inj IVP PRN (22:40)
[2018-02-14 00:40] VITALS: BP 132/79
[2018-02-14 04:33] VITALS: BP 148/83
[2018-02-14] MEDS: Morphine Sulfate 4mg/ml Inj IVP PRN ×3 (06:27→18:31)
[2018-02-14 06:53] LABS: ANION GAP 10 mmol/L (5-15); BLOOD UREA NITROGEN 19 mg/dL (7-18); CALCIUM 8.3 MG/DL (8.5-10.1); CARBON DIOXIDE 27 MMOL/L (21-32); CHLORIDE 94 MMOL/L (98-107); CREATININE 0.8 MG/DL (0.55-1.30); POTASSIUM 3.9 MMOL/L (3.5-5.1); SODIUM 131 MMOL/L (136-145)
[2018-02-14 07:03] LABS: BASOPHILS % (AUTO) 1.5 % (0.0-2.0); HEMATOCRIT 38.1 % (42.0-52.0); HEMOGLOBIN 13.6 G/DL (14.2-18.0); LYMPHOCYTES % (AUTO) 22.7 % (20.0-45.0); MEAN CORPUSCULAR VOLUME 84 FL (80-99); MONOCYTES % (AUTO) 5.2 % (1.0-10.0); NEUTROPHILS % (AUTO) 68.7 % (45.0-75.0); PLATELET COUNT 225 K/UL (150-450); RED BLOOD COUNT 4.56 M/UL (4.70-6.10); RED CELL DISTRIBUTION WIDTH 12.5 % (11.6-14.8); WHITE BLOOD COUNT 9.7 K/UL (4.8-10.8)
[2018-02-14 08:08] VITALS: BP 146/99
[2018-02-14] MEDS: Pantoprazole Inj IVP SCH (09:00)
[2018-02-14] MEDS: Folic Acid 1 MG, Magnesium Sulfate 2,000 MG, Multivitamin - 12 Injection 10 ML in NS w/... IV SCH (10:56)
[2018-02-14] MEDS: Thiamine 100mg IVPB (Q24H) IVPB SCH ×2 (10:56)
[2018-02-14 11:31] VITALS: BP 152/97
--- NOTE | 2018-02-14 14:44 | GI Initial Consult Note ---
History of Present Illness General Date patient seen: Feb 14, 2018 Time patient seen: 15:00 Reason for Hospitalization: Alcohol Intoxication Referring physician: MEHRAN WALTON Reason for Consultation: ETOH INTOXICATION Present Illness HPI The patient presents with abdominal pain. He's been drinking heavily for 3 weeks. He's been drinking hard liquor. He's had pancreatitis in the past and complains about epigastric pain. He states it's 9/10 and constant. It radiates somewhat to his back but is mainly in his stomach. He also states he' s been vomiting red material and also when he moves his dialysis also read. In addition when he urinates he states is also red. He states he is passing blood clots. The patient denies any fevers, chills, cough, extremity pain, calf pain, swelling, loss of consciousness or seizures. He was admitted in December with alleged GI bleed. GI consulted for abdominal pain. HPI as noted above, pt stated depression has been his reason to drinking so heavily. He presents today with anemia, transaminitis and elevated ETOH serum levels. KUB was unremarkable, Abdominal US is pending. Unknown history of EGD/colonoscopy. Home Meds Reported Medications Calcium Carbonate (CALCIUM) 500 Mg Tab.chew, 500 MG PO 02/13/18 Multivitamins* (MULTIVITAMINS*) 1 Each Tablet, 1 TAB ORAL DAILY 02/13/18 Discontinued Reported Medications Ibuprofen* (ADVIL*) 200 Mg Capsule, 200 MG ORAL Q6H, CAP 02/25/15 Discontinued Scripts Chlordiazepoxide (Chlordiazepoxide HCl) 25 Mg Capsule, 25 MG ORAL THREE TIMES A DAY, #15 CAP 0 Refills Prov:MUNIR JEAN M.D. 11/14/16 Ranitidine Hcl* (ZANTAC*) 150 Mg Tablet, 150 MG ORAL DAILY, #30 TAB 0 Refills Prov:Jesus Santos MD 09/01/16 Ranitidine Hcl* (ZANTAC*) 150 Mg Tablet, 150 MG ORAL TWICE A DAY, #30 TAB Prov:Mode Ballesteros MD 01/25/16 Famotidine (PEPCID) 40 Mg Tablet, 40 MG PO DAILY, #14 TAB 0 Refills Prov:Shaneka Knowles DO 10/22/15 Mag Hydrox/Al Hydrox/Simeth (Maalox Advanced Suspension) 770 Ml Oral.susp, 100 ML PO BID for 7 Days, ML Prov:Shaneka Knowles DO 10/22/15 Med list reviewed/reconciled: Yes Allergies: Coded Allergies: No Known Allergies (Unverified , 10/01/14) Patient History History Provided By: Patient, Medical Record PMH Narrative Past Medical History: see triage record Social History: Reports: alcohol use Social History Narrative 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: PMH: Agreed; PSxH: Agreed Nursing Documentation-PMH Past Medical History: No History, Except For Hx Hypertension: Yes Hx Cancer: No Hx Gastrointestinal Problems: Yes - Pancreatitis Hx Neurological Problems: Yes Hx Tremors: Yes Hx Dizziness: Yes Hx Syncope: Yes - related to EtOH Hx Headaches: Yes Social History: Reports: alcohol use Review of Systems All Other Systems: negative except mentioned in HPI Physical Exam Vital Signs Date Time Temp Pulse Resp B/P (MAP) Pulse Ox O2 Delivery O2 Flow Rate FiO2 02/13/18 06:00 98.2 87 16 155/97 98 Room Air 98.2 Sp02 EP Interpretation: reviewed, normal Labs Laboratory Tests Test 02/14/18 05:45 White Blood Count 9.7 K/UL (4.8-10.8) Red Blood Count 4.56 M/UL (4.70-6.10) L Hemoglobin 13.6 G/DL (14.2-18.0) L Hematocrit 38.1 % (42.0-52.0) L Mean Corpuscular Volume 84 FL (80-99) Mean Corpuscular Hemoglobin 29.8 PG (27.0-31.0) Mean Corpuscular Hemoglobin Concent 35.7 G/DL (32.0-36.0) Red Cell Distribution Width 12.5 % (11.6-14.8) Platelet Count 225 K/UL (150-450) Mean Platelet Volume 8.4 FL (6.5-10.1) Neutrophils (%) (Auto) 68.7 % (45.0-75.0) Lymphocytes (%) (Auto) 22.7 % (20.0-45.0) Monocytes (%) (Auto) 5.2 % (1.0-10.0) Eosinophils (%) (Auto) 2.0 % (0.0-3.0) Basophils (%) (Auto) 1.5 % (0.0-2.0) Sodium Level 131 MMOL/L (136-145) L Potassium Level 3.9 MMOL/L (3.5-5.1) Chloride Level 94 MMOL/L (98-107) L Carbon Dioxide Level 27 MMOL/L (21-32) Anion Gap 10 mmol/L (5-15) Blood Urea Nitrogen 19 mg/dL (7-18) H Creatinine 0.8 MG/DL (0.55-1.30) Estimat Glomerular Filtration Rate > 60 mL/min (>60) Glucose Level 96 MG/DL (74-106) Calcium Level 8.3 MG/DL (8.5-10.1) L General Appearance: well appearing, no apparent distress, alert Head: normocephalic EENT: PERRL/EOMI, normal ENT inspection Neck: supple Respiratory: normal breath sounds, no respiratory distress Cardiovascular: normal rate Gastrointestinal: normal inspection, non tender, soft, normal bowel sounds, non -distended Rectal: deferred Genitourinary: deferred Musculoskeletal: normal inspection, back normal Neurologic: normal inspection, alert, oriented x3, responsive Psychiatric: normal inspection, judgement/insight normal, memory normal Skin: normal inspection, normal color, no rash, warm/dry, palpation normal, well hydrated Lymphatic: normal inspection, no adenopathy Current Medications Current Medications Medications (Trade) Dose Ordered Sig/Edy Route PRN Reason Start Time Stop Time Status Last Admin Dose Admin Folic Acid 1 mg/ Magnesium Sulfate 2000 mg/ Multivitamins 10 ml/Sodium Chloride 1,014.2 ml @ 125 mls/ hr Q24H IV 02/14/18 10:00 03/16/18 09:59 02/14/18 10:56 Morphine Sulfate (Morphine Sulfate) 2 mg EVERY 6 HOURS PRN IVP Severe Pain (Pain Scale 7-10) 02/13/18 20:00 02/20/18 19:59 02/14/18 12:30 Ondansetron HCl (Zofran) 4 mg Q6H PRN IVP Nausea & Vomiting 02/13/18 20:00 03/15/18 19:59 Pantoprazole (Protonix) 40 mg DAILY IVP 02/14/18 09:00 03/16/18 08:59 02/14/18 09:00 Thiamine HCl 100 mg/Dextrose 56 ml @ 112 mls/hr Q24H IVPB 02/14/18 10:00 03/16/18 09:59 02/14/18 10:56 GI: Plan Problems: (1) Abdominal pain (2) Alcohol abuse (3) Alcohol withdrawal (4) Melena (5) Anemia Plan abdominal US pending banana bag x 1 EGD scheduled tomorrow given reports of hematemesis and melena. - okay to adv to low sodium diet after abdominal US, NPO @ MN. - hold all blood thinners anemia work up OB stool r/o GI bleed monitor H&H, prn transfusions ppi fu labs Discussed with Dr. Frye. Thank you for this patient referral, we will follow. The patient was seen and examined at bedside and all new and available data was reviewed in the patients chart. I agree with the above findings, impression and plan. (Patient seen earlier today. Signature stamp does not reflect patient encounter time.). - MD Amelia Del CidBanner Del E Webb Medical CenterTremayne DIRECTOR STRATEGY Feb 14, 2018 14:44
[2018-02-14 15:48] VITALS: BP 145/97
--- NOTE | 2018-02-14 19:30 | History and Physical Report ---
DATE OF ADMISSION: 02/13/2018 HISTORY OF PRESENT ILLNESS: This is a 52-year-old male, who reports heavy alcohol use for three weeks. He drinks hard liquor. He reports in the past he has had pancreatitis. He came to the hospital with epigastric pain. He also states he has been having hematemesis as well as melena. However, on evaluation by the ER physician, his stool was guaiac negative and his hemoglobin is 15. He reports a previous history of being admitted to the hospital with gastrointestinal bleed in the past. I reviewed his old records and noted that he was discharged from this hospital on 01/01/2018. At that time, he was admitted with a similar presentation. The patient, at that time, left AMA. I also noted in the past, he has been seen by Gastroenterology and outpatient endoscopy and colonoscopy has been recommended. PAST MEDICAL HISTORY: Notable for hypertension, depression, and chronic alcohol abuse. HOME MEDICATIONS: None reported. SOCIAL HISTORY: He admits to alcohol use. He is a nonsmoker. No history of substance abuse. REVIEW OF SYSTEMS: He denies any headaches. He admits to having melena, but as discussed above, his stool is OB negative. No weight loss. PHYSICAL EXAMINATION: GENERAL: Reveals an obese male. VITAL SIGNS: Blood pressure is 140/90, heart rate 94, respiratory rate 18, and he is afebrile. HEENT: Unremarkable. CHEST: Clear breath sounds bilaterally. ABDOMEN: Soft. NEUROLOGIC: Nonfocal. LABORATORY DATA: Lab testing shows hemoglobin of 15 now 13.6, white count 9.7, and platelet count is 225,000. Chemistry shows creatinine of 0.8, albumin of 8.3, and troponin 0.029. Coagulation studies are negative. Toxicology shows urine positive for opiates. Alcohol in serum is elevated to 418. Urinalysis shows negative data. The patient's lipase is 315. IMAGING STUDIES: The patient underwent abdominal x-rays, which were negative. An x-ray of chest was also obtained that was negative for any acute pathology. IMPRESSION: 1. Chronic alcohol abuse. 2. Gastritis. 3. Hypertension. DISCUSSION: Admitted to the hospital. The patient is still on liquid diet and still requiring pain medications. I will consult Gastroenterology. Continue clear liquid diet and DVT prophylaxis. We will order morphine, folic acid, thiamine, Protonix, and SCDs. CBC in the morning. We will follow carefully. Chandana Rodriguez M.D. DR: GENNA JOB#: [id number] CC:
[2018-02-14 20:30] VITALS: BP 160/100
[2018-02-15] VITALS (11 sets, daily range): BP systolic 134–159; BP diastolic 80–104
[2018-02-15] MEDS: Morphine Sulfate 4mg/ml Inj IVP PRN ×2 (00:52→09:13)
[2018-02-15 06:37] LABS: EOSINOPHILS % (AUTO) 4.9 % (0.0-3.0); HEMATOCRIT 38.6 % (42.0-52.0); HEMOGLOBIN 13.2 G/DL (14.2-18.0); LYMPHOCYTES % (AUTO) 22.9 % (20.0-45.0); MEAN CORPUSCULAR VOLUME 84 FL (80-99); NEUTROPHILS % (AUTO) 65.2 % (45.0-75.0); PLATELET COUNT 169 K/UL (150-450); RED BLOOD COUNT 4.59 M/UL (4.70-6.10); RED CELL DISTRIBUTION WIDTH 12.5 % (11.6-14.8); WHITE BLOOD COUNT 6.7 K/UL (4.8-10.8)
[2018-02-15 06:42] LABS: INR 0.9 (0.9-1.1)
--- NOTE | 2018-02-15 07:08 | Anethesia Preoperative Eval ---
Anesthesia Pre-op PMH/ROS General Date of Evaluation: Feb 15, 2018 Time of Evaluation: 07:08 ASA Score: ASA 3 Mallampati Score Class I : Soft palate, uvula, fauces, pillars visible Class II: Soft palate, uvula, fauces visible Class III: Soft palate, base of uvula visible Class IV: Only hard plate visible Mallampati Classification: Class II Surgeon: jno Diagnosis: hematemesis Surgical Procedure: egd Anesthesia History: none Social History: current smoker, alcohol use Family History: no anesthesia problems Allergies: Coded Allergies: No Known Allergies (Unverified , 10/01/14) Medications: see eMAR Past Medical History Cardiovascular: Reports: HTN, other - syncope Pulmonary: Reports: other - bronchitis Gastrointestinal/Genitourinary: Reports: other - acute renal failure, gastritis , fatty liver, pancreatitis Neurologic/Psychiatric: Reports: depression/anxiety, other - acute etoh intoxification Other: obesity Anesthesia Pre-op Phys. Exam Physician Exam Last Vital Signs Date Time Temp Pulse Resp B/P (MAP) Pulse Ox O2 Delivery O2 Flow Rate FiO2 02/15/18 04:00 98.6 106 18 152/104 98 98.6 02/14/18 20:30 Room Air Constitutional: NAD Neurologic: CN 2-12 intact Cardiovascular: RRR Respiratory: CTA Gastrointestinal: S/NT/ND Airway Exam Mallampati Score: Class II MO: full Neck: short TMD: 2fb ROM: full Teeth: intact Anesthesia Pre-op A/P Labs Hematology Test 02/15/18 05:30 White Blood Count 6.7 K/UL (4.8-10.8) Red Blood Count 4.59 M/UL (4.70-6.10) L Hemoglobin 13.2 G/DL (14.2-18.0) L Hematocrit 38.6 % (42.0-52.0) L Mean Corpuscular Volume 84 FL (80-99) Mean Corpuscular Hemoglobin 28.7 PG (27.0-31.0) Mean Corpuscular Hemoglobin Concent 34.1 G/DL (32.0-36.0) Red Cell Distribution Width 12.5 % (11.6-14.8) Platelet Count 169 K/UL (150-450) Mean Platelet Volume 8.4 FL (6.5-10.1) Neutrophils (%) (Auto) 65.2 % (45.0-75.0) Lymphocytes (%) (Auto) 22.9 % (20.0-45.0) Monocytes (%) (Auto) 6.0 % (1.0-10.0) Eosinophils (%) (Auto) 4.9 % (0.0-3.0) H Basophils (%) (Auto) 1.0 % (0.0-2.0) Reticulocyte Count Pending Coagulation Test 02/15/18 05:30 Prothrombin Time 9.4 SEC (9.30-11.50) Prothromb Time International Ratio 0.9 (0.9-1.1) Activated Partial Thromboplast Time 24 SEC (23-33) Chemistry Test 02/15/18 05:30 Sodium Level Pending Potassium Level Pending Chloride Level Pending Carbon Dioxide Level Pending Blood Urea Nitrogen Pending Creatinine Pending Estimat Glomerular Filtration Rate Pending Glucose Level Pending Calcium Level Pending Iron Level Pending Unsaturated Iron Binding Pending Ferritin Pending Carcinoembryonic Antigen Pending Vitamin B12 Level Pending Folate Pending Thyroid Stimulating Hormone (TSH) Pending Free Thyroxine Pending Risk Assessment & Plan Assessment: asa3 Plan: mac Status Change Before Surgery: No Pre-Antibiotics Drug: Anna Anaya MD Feb 15, 2018 07:08
[2018-02-15 07:13] LABS: % IRON SATURATION 92 % (15-50); IRON 271 ug/dL (50-175); TOTAL IRON BINDING CAPACITY 295 ug/dL (250-450)
[2018-02-15 07:26] LABS: ANION GAP 9 mmol/L (5-15); BLOOD UREA NITROGEN 9 mg/dL (7-18); CALCIUM 8.5 MG/DL (8.5-10.1); CARBON DIOXIDE 26 MMOL/L (21-32); CHLORIDE 97 MMOL/L (98-107); CREATININE 0.8 MG/DL (0.55-1.30); FERRITIN 325 NG/ML (8-388); POTASSIUM 3.4 MMOL/L (3.5-5.1); SODIUM 132 MMOL/L (136-145)
--- NOTE | 2018-02-15 08:48 | Pulmonology Progress Note ---
Assessment/Plan Assessment/Plan IMPRESSION: 1. Chronic alcohol abuse. 2. Gastritis. 3. Hypertension. DISCUSSION: For endoscopy today Hgb still 13 Continue clear liquid diet and DVT prophylaxis. Subjective Interval Events: None Constitutional: Reports: no symptoms HEENT: Repors: no symptoms Respiratory: Reports: no symptoms Cardiovascular: Reports: no symptoms Gastrointestinal/Abdominal: Reports: no symptoms Allergies: Coded Allergies: No Known Allergies (Unverified , 10/01/14) Objective Last 24 Hour Vital Signs Date Time Temp Pulse Resp B/P (MAP) Pulse Ox O2 Delivery O2 Flow Rate FiO2 02/15/18 08:00 98.8 107 20 134/100 94 98.8 02/15/18 04:00 98.6 106 18 152/104 98 98.6 02/15/18 01:22 98.6 02/15/18 00:52 98.6 02/14/18 20:30 99 Room Air 02/14/18 20:30 98.6 105 19 160/100 99 98.6 02/14/18 18:31 98.2 02/14/18 15:48 98.2 95 20 145/97 98 98.2 02/14/18 12:30 98.2 02/14/18 11:31 98.2 79 20 152/97 98 98.2 Intake and Output 02/14/18 02/15/18 19:00 07:00 Intake Total 2501 ml 139.2 ml Output Total 1200 ml Balance 1301 ml 139.2 ml Intake Oral 1570 ml IV Total 931 ml 139.2 ml Output Urine Total 1200 ml # Voids 3 # Bowel Movements 1 General Appearance: no acute distress HEENT: normocephalic Respiratory/Chest: chest wall non-tender, lungs clear Cardiovascular: normal peripheral pulses, normal rate Abdomen: normal bowel sounds Laboratory Tests 02/15/18 05:30: White Blood Count 6.7, Red Blood Count 4.59L, Hemoglobin 13.2L, Hematocrit 38.6L , Mean Corpuscular Volume 84, Mean Corpuscular Hemoglobin 28.7, Mean Corpuscular Hemoglobin Concent 34.1, Red Cell Distribution Width 12.5, Platelet Count 169, Mean Platelet Volume 8.4, Neutrophils (%) (Auto) 65.2, Lymphocytes (% ) (Auto) 22.9, Monocytes (%) (Auto) 6.0, Eosinophils (%) (Auto) 4.9H, Basophils (%) (Auto) 1.0, Reticulocyte Count 1.2, Prothrombin Time 9.4, Prothromb Time International Ratio 0.9, Activated Partial Thromboplast Time 24, Sodium Level 132L, Potassium Level 3.4L, Chloride Level 97L, Carbon Dioxide Level 26, Anion Gap 9, Blood Urea Nitrogen 9, Creatinine 0.8, Estimat Glomerular Filtration Rate > 60, Glucose Level 105, Calcium Level 8.5, Iron Level 271H, Total Iron Binding Capacity 295, Percent Iron Saturation 92H, Unsaturated Iron Binding 24L , Ferritin 325, Carcinoembryonic Antigen [Pending], Vitamin B12 Level 680, Folate 18.0, Thyroid Stimulating Hormone (TSH) 2.853, Free Thyroxine 1.21 Current Medications Medications (Trade) Dose Ordered Sig/Edy Route PRN Reason Start Time Stop Time Status Last Admin Dose Admin Folic Acid 1 mg/ Magnesium Sulfate 2000 mg/ Multivitamins 10 ml/Sodium Chloride 1,014.2 ml @ 125 mls/ hr Q24H IV 02/14/18 10:00 03/16/18 09:59 02/14/18 10:56 Morphine Sulfate (Morphine Sulfate) 2 mg EVERY 6 HOURS PRN IVP Severe Pain (Pain Scale 7-10) 02/13/18 20:00 02/20/18 19:59 02/15/18 00:52 Ondansetron HCl (Zofran) 4 mg Q6H PRN IVP Nausea & Vomiting 02/13/18 20:00 03/15/18 19:59 Pantoprazole (Protonix) 40 mg DAILY IVP 02/14/18 09:00 03/16/18 08:59 02/14/18 09:00 Thiamine HCl 100 mg/Dextrose 56 ml @ 112 mls/hr Q24H IVPB 02/14/18 10:00 03/16/18 09:59 02/14/18 10:56 Chandana Rodriguez MD Feb 15, 2018 08:48
[2018-02-15] MEDS: Pantoprazole Inj IVP SCH (09:16)
[2018-02-15 09:51] LABS: ALANINE AMINOTRANSFERASE 137 U/L (12-78); ALBUMIN 3.5 G/DL (3.4-5.0); ALKALINE PHOSPHATASE 129 U/L (46-116); ASPARTATE AMINO TRANSFERASE 131 U/L (15-37); BILIRUBIN,DIRECT 0.3 MG/DL (0.0-0.3); BILIRUBIN,TOTAL 1.4 MG/DL (0.2-1.0)
[2018-02-15] MEDS ORDERED: Midazolam 2mg/2ml Inj IVP PRN (10:15)
[2018-02-15] MEDS ORDERED: Atropine Inj 1mg/10ml Syr IV PRN (10:15)
[2018-02-15] MEDS ORDERED: fentaNYL 100 mcg/2 mL IV PRN (10:15)
[2018-02-15] MEDS ORDERED: DiphenhydrAMINE 50mg/ml Inj IVP PRN (10:15)
[2018-02-15] MEDS ORDERED: Lidocaine 1% MPF 10mg/ml 5ml ONE (10:30)
[2018-02-15] MEDS ORDERED: Midazolam 2mg/2ml Inj ONE (10:30)
[2018-02-15] MEDS ORDERED: Propofol 200mg/20ml IV ONE (10:30)
[2018-02-15] MEDS ORDERED: NS 500ML IVPB ONE (10:35)
--- NOTE | 2018-02-15 10:57 | Pre-Procedure Note/Attestation ---
Pre-Procedure Note/Attestation Complete Prior to Procedure Planned Procedure: not applicable Procedure Narrative: egd Indications for Procedure Pre-Operative Diagnosis: gib Attestation I attest that I discussed the nature of the procedure; its benefits; risks and complications; and alternatives (and the risks and benefits of such alternatives ), prior to the procedure, with the patient (or the patient's legal contact representative). I attest that, if there was a reasonable possibility of needing a blood transfusion, the patient (or the patient's legal contact representative) was given the [facility] standardized written summary, pursuant to the Ricci Brain Blood Safety Act ([place] Health and Safety Code # 1645, as amended). I attest that I re-evaluated the patient just prior to the surgery and that there has been no change in the patient's H&P, except as documented below: Tyler Frye MD Feb 15, 2018 10:57
--- NOTE | 2018-02-15 11:03 | Endoscopy Procedure Note ---
Endoscopy Procedure Note General Indication for Procedure: gib Procedures Performed: EGD Operative Findings/Diagnosis: gastritis Specimen: yes Pt Tolerated Procedure Well: Yes Estimated Blood Loss: none Anesthesia Anesthesiologist: isidra Anesthesia: MAC Inserted Devices Implant(s) used?: No GI Core Measures 50 yrs or older w/o bx or poly: Not Applicable 10yrs. F/U not recommended: Not Applicable Tyler Frye MD Feb 15, 2018 11:03
[2018-02-15] MEDS: Folic Acid 1 MG, Magnesium Sulfate 2,000 MG, Multivitamin - 12 Injection 10 ML in NS w/... IV SCH (12:42)
[2018-02-15] MEDS: Thiamine 100mg IVPB (Q24H) IVPB SCH ×2 (12:42)
--- NOTE | 2018-02-15 13:54 | Immediate Post-Op Evaluation ---
Immediate Post-Op Evalulation Immediate Post-Op Evalulation Procedure: egd Date of Evaluation: Feb 15, 2018 Time of Evaluation: 11:22 IV Fluids: 200ml 0.9ns Blood Products: none Estimated Blood Loss: negligible Blood Pressure Systolic: 154 Blood Pressure Diastolic: 89 Pulse Rate: 116 Respiratory Rate: 18 O2 Sat by Pulse Oximetry: 99 Temperature (Fahrenheit): 98.1 Pain Score (1-10): 0 Nausea: No Vomiting: No Complications none Patient Status: awake, reacts, patent Hydration Status: adequate Drug: Anna Anaya MD Feb 15, 2018 13:54
--- NOTE | 2018-02-15 13:56 | 48 Hour Post Anesthesia Eval ---
Post Anesthesia Evaluation Procedure: egd Date of Evaluation: Feb 15, 2018 Time of Evaluation: 11:24 Blood Pressure Systolic: 159 0: 89 Pulse Rate: 110 Respiratory Rate: 18 Temperature (Fahrenheit): 98.1 O2 Sat by Pulse Oximetry: 99 Airway: patent Nausea: No Vomiting: No Pain Intensity: 0 Hydration Status: adequate Cardiopulmonary Status: stable Mental Status/LOC: patient returned to baseline Post-Anesthesia Complications: none Follow-up care needed: N/A Anna Del Valle MD Feb 15, 2018 13:56
--- NOTE | 2018-02-15 16:15 | Procedure Note ---
DATE OF PROCEDURE: 02/15/2018 SURGEON: Tyler Frye M.D. ANESTHESIOLOGIST: Dr. Flannery. PROCEDURE: Upper endoscopy with biopsy. ANESTHESIA: Per Dr. Flannery. INSTRUMENT: Olympus adult flexible upper endoscope. INDICATION: GI bleeding. The procedure, risks, benefits, and possible consequences, including hemorrhage, aspiration, perforation and infection, and alternative treatments, were explained to the patient/legal guardian by Dr. Tyler Frye and the patient/legal guardian understood and accepted these risks. DESCRIPTION OF PROCEDURE: After informed consent was obtained and the patient was adequately sedated, Olympus upper endoscope was advanced from the mouth into the second portion of the duodenum and retroflexion was performed in the stomach. The patient had diffuse gastritis. Random biopsy from antrum was obtained to rule out H. pylori infection. The rest of the upper endoscopic examination was grossly within normal limit. No obvious mass or varices was seen. The patient tolerated procedure well without any complication. SUMMARY OF FINDINGS: Gastritis, status post biopsy. RECOMMENDATIONS: Follow up biopsy results and treat accordingly. Tyler Frye M.D. DR: Wendy JOB#: [id number] CC:
[2018-02-16] VITALS: BP 143/90
[2018-02-16 04:42] VITALS: BP 148/82
[2018-02-16 08:25] VITALS: BP 146/89
[2018-02-16 08:25] LABS: BASOPHILS % (AUTO) 0.9 % (0.0-2.0); EOSINOPHILS % (AUTO) 4.9 % (0.0-3.0); HEMATOCRIT 39.8 % (42.0-52.0); HEMOGLOBIN 13.9 G/DL (14.2-18.0); LYMPHOCYTES % (AUTO) 25.6 % (20.0-45.0); MEAN CORPUSCULAR VOLUME 85 FL (80-99); MONOCYTES % (AUTO) 4.4 % (1.0-10.0); NEUTROPHILS % (AUTO) 64.2 % (45.0-75.0); PLATELET COUNT 164 K/UL (150-450); RED BLOOD COUNT 4.67 M/UL (4.70-6.10); RED CELL DISTRIBUTION WIDTH 12.8 % (11.6-14.8); WHITE BLOOD COUNT 9.1 K/UL (4.8-10.8)
[2018-02-16] MEDS: Pantoprazole Inj IVP SCH (08:30)
[2018-02-16 08:45] LABS: ANION GAP 11 mmol/L (5-15); BLOOD UREA NITROGEN 12 mg/dL (7-18); CALCIUM 8.7 MG/DL (8.5-10.1); CARBON DIOXIDE 23 MMOL/L (21-32); CHLORIDE 97 MMOL/L (98-107); POTASSIUM 3.3 MMOL/L (3.5-5.1); SODIUM 131 MMOL/L (136-145)
--- NOTE | 2018-02-16 09:16 | Pulmonology Progress Note ---
Assessment/Plan Assessment/Plan IMPRESSION: 1. Chronic alcohol abuse. 2. Gastritis. 3. Hypertension. DISCUSSION: S/p endoscopy Hgb still 13 Advance diet DC home Subjective Interval Events: Better; s/p EGD_ gastritis Constitutional: Reports: no symptoms HEENT: Repors: no symptoms Respiratory: Reports: no symptoms Cardiovascular: Reports: no symptoms Gastrointestinal/Abdominal: Reports: no symptoms Genitourinary: Reports: no symptoms Allergies: Coded Allergies: No Known Allergies (Unverified , 10/01/14) Objective Last 24 Hour Vital Signs Date Time Temp Pulse Resp B/P (MAP) Pulse Ox O2 Delivery O2 Flow Rate FiO2 02/16/18 08:25 98.2 96 20 146/89 97 Room Air 98.2 02/16/18 04:42 97.8 76 19 148/82 98 Room Air 97.8 02/16/18 00:00 97.9 89 22 143/90 98 Room Air 97.9 02/15/18 20:00 98.6 90 20 135/80 96 Room Air 98.6 02/15/18 16:00 98.0 100 20 137/90 98 98.0 02/15/18 16:00 Room Air 02/15/18 13:56 208.6 110 18 99 02/15/18 13:54 208.6 116 18 99 02/15/18 12:10 99.0 107 19 141/83 94 99.0 02/15/18 12:10 Room Air 02/15/18 11:45 97.8 108 17 142/86 98 97.8 02/15/18 11:30 104 15 134/85 97 02/15/18 11:25 106 18 138/94 95 02/15/18 11:20 110 15 159/89 99 02/15/18 11:15 109 14 155/85 97 02/15/18 11:10 98.1 116 18 154/89 99 98.1 Intake and Output 02/15/18 02/16/18 19:00 07:00 Intake Total 1302 ml 375 ml Balance 1302 ml 375 ml Intake Oral 440 ml IV Total 862 ml 375 ml # Voids 2 2 General Appearance: no acute distress HEENT: normocephalic Respiratory/Chest: chest wall non-tender, lungs clear Cardiovascular: normal peripheral pulses Abdomen: normal bowel sounds Extremities: no cyanosis Laboratory Tests 02/16/18 00:30: Stool Occult Blood [Pending] 02/16/18 07:40: White Blood Count 9.1, Red Blood Count 4.67L, Hemoglobin 13.9L, Hematocrit 39.8L , Mean Corpuscular Volume 85, Mean Corpuscular Hemoglobin 29.8, Mean Corpuscular Hemoglobin Concent 35.0, Red Cell Distribution Width 12.8, Platelet Count 164, Mean Platelet Volume 10.1, Neutrophils (%) (Auto) 64.2, Lymphocytes ( %) (Auto) 25.6, Monocytes (%) (Auto) 4.4, Eosinophils (%) (Auto) 4.9H, Basophils (%) (Auto) 0.9, Sodium Level 131L, Potassium Level 3.3L, Chloride Level 97L, Carbon Dioxide Level 23, Anion Gap 11, Blood Urea Nitrogen 12, Creatinine 1.0, Estimat Glomerular Filtration Rate > 60, Glucose Level 132H, Calcium Level 8.7 Current Medications Medications (Trade) Dose Ordered Sig/Edy Route PRN Reason Start Time Stop Time Status Last Admin Dose Admin Folic Acid 1 mg/ Magnesium Sulfate 2000 mg/ Multivitamins 10 ml/Sodium Chloride 1,014.2 ml @ 125 mls/ hr Q24H IV 02/14/18 10:00 03/16/18 09:59 02/15/18 12:42 Morphine Sulfate (Morphine Sulfate) 2 mg EVERY 6 HOURS PRN IVP Severe Pain (Pain Scale 7-10) 02/13/18 20:00 02/20/18 19:59 02/15/18 09:13 Ondansetron HCl (Zofran) 4 mg Q6H PRN IVP Nausea & Vomiting 02/13/18 20:00 03/15/18 19:59 Pantoprazole (Protonix) 40 mg DAILY IVP 02/14/18 09:00 03/16/18 08:59 02/16/18 08:30 Thiamine HCl 100 mg/Dextrose 56 ml @ 112 mls/hr Q24H IVPB 02/14/18 10:00 03/16/18 09:59 02/15/18 12:42 Chandana Rodriguez MD Feb 16, 2018 09:16
[2018-02-16] MEDS ORDERED: PROTONIX20 MG ORAL (09:17)
[2018-02-16] MEDS: Folic Acid 1 MG, Magnesium Sulfate 2,000 MG, Multivitamin - 12 Injection 10 ML in NS w/... IV SCH (10:00)
[2018-02-16] MEDS: Thiamine 100mg IVPB (Q24H) IVPB SCH ×2 (10:00)
--- NOTE | 2018-02-16 10:37 | GI Progress Note ---
Assessment/Plan Problems: (1) Abdominal pain ICD Codes: R10.9 - Abdominal pain SNOMED: 01277108 Qualifiers: Qualified Codes: R10.13 - Epigastric pain (2) Alcohol withdrawal ICD Codes: F10.239 - Alcohol dependence with withdrawal, unspecified SNOMED: 198050099 (3) Anemia ICD Codes: D64.9 - Anemia SNOMED: 963855330 (4) Alcohol abuse ICD Codes: F10.10 - Alcohol abuse, uncomplicated SNOMED: 46528913 (5) Melena ICD Codes: K92.1 - Melena SNOMED: 5310140 (6) Acute alcohol intoxication ICD Codes: F10.129 - Alcohol abuse with intoxication, unspecified SNOMED: 72176977 Status: stable Status Narrative Discussed with Dr. Frye. Assessment/Plan SUMMARY OF FINDINGS: Gastritis, status post biopsy. okay for DC per GI standpoint adv diet OB stool r/o GI bleed monitor H&H, prn transfusions ppi trend LFTs avoid alcohol fu labs, biopsy results Subjective Gastrointestinal/Abdominal: Reports: no symptoms Objective Last 24 Hour Vital Signs Date Time Temp Pulse Resp B/P (MAP) Pulse Ox O2 Delivery O2 Flow Rate FiO2 02/16/18 08:25 98.2 96 20 146/89 97 Room Air 98.2 02/16/18 04:42 97.8 76 19 148/82 98 Room Air 97.8 02/16/18 00:00 97.9 89 22 143/90 98 Room Air 97.9 02/15/18 20:00 98.6 90 20 135/80 96 Room Air 98.6 02/15/18 16:00 98.0 100 20 137/90 98 98.0 02/15/18 16:00 Room Air 02/15/18 13:56 208.6 110 18 99 02/15/18 13:54 208.6 116 18 99 02/15/18 12:10 99.0 107 19 141/83 94 99.0 02/15/18 12:10 Room Air 02/15/18 11:45 97.8 108 17 142/86 98 97.8 02/15/18 11:30 104 15 134/85 97 02/15/18 11:25 106 18 138/94 95 02/15/18 11:20 110 15 159/89 99 02/15/18 11:15 109 14 155/85 97 02/15/18 11:10 98.1 116 18 154/89 99 98.1 Intake and Output 02/15/18 02/16/18 19:00 07:00 Intake Total 1302 ml 375 ml Balance 1302 ml 375 ml Intake Oral 440 ml IV Total 862 ml 375 ml # Voids 2 2 Laboratory Tests Test 02/16/18 00:30 02/16/18 07:40 Stool Occult Blood Pending White Blood Count 9.1 K/UL (4.8-10.8) Red Blood Count 4.67 M/UL (4.70-6.10) L Hemoglobin 13.9 G/DL (14.2-18.0) L Hematocrit 39.8 % (42.0-52.0) L Mean Corpuscular Volume 85 FL (80-99) Mean Corpuscular Hemoglobin 29.8 PG (27.0-31.0) Mean Corpuscular Hemoglobin Concent 35.0 G/DL (32.0-36.0) Red Cell Distribution Width 12.8 % (11.6-14.8) Platelet Count 164 K/UL (150-450) Mean Platelet Volume 10.1 FL (6.5-10.1) Neutrophils (%) (Auto) 64.2 % (45.0-75.0) Lymphocytes (%) (Auto) 25.6 % (20.0-45.0) Monocytes (%) (Auto) 4.4 % (1.0-10.0) Eosinophils (%) (Auto) 4.9 % (0.0-3.0) H Basophils (%) (Auto) 0.9 % (0.0-2.0) Sodium Level 131 MMOL/L (136-145) L Potassium Level 3.3 MMOL/L (3.5-5.1) L Chloride Level 97 MMOL/L (98-107) L Carbon Dioxide Level 23 MMOL/L (21-32) Anion Gap 11 mmol/L (5-15) Blood Urea Nitrogen 12 mg/dL (7-18) Creatinine 1.0 MG/DL (0.55-1.30) Estimat Glomerular Filtration Rate > 60 mL/min (>60) Glucose Level 132 MG/DL (74-106) H Calcium Level 8.7 MG/DL (8.5-10.1) Height (Feet): 5 Height (Inches): 3.00 Weight (Pounds): 209 General Appearance: WD/WN, no apparent distress, alert Cardiovascular: normal rate Respiratory/Chest: normal breath sounds, no respiratory distress Abdominal Exam: normal bowel sounds, non tender, soft Extremities: normal range of motion, non-tender Bob Cisneros NP Feb 16, 2018 10:37
--- NOTE | 2018-02-17 08:02 | Discharge Summary ---
Discharge Summary Discharge Summary _ DATE OF ADMISSION: 02/13/2018 DATE OF DISCHARGE: 02/16/2018 CONSULTANTS: Dr. Tyler Frye BRIEF HOSPITAL COURSE: Patient is a 52-year-old male, who reported heavy alcohol use for 3 weeks. He drinks hard liquor and reported pancreatitis in the past. He came to the hospital complaining of epigastric pain. Pain was described to be epigastric in location, 9/10 and constant, radiates to the back but mainly is in the stomach. He also stated he was having hematemesis as well as melena. He reported previous history of being admitted for GI bleed in the past, at that time he had similar presentation, however, at that time left AMA. He has medical history notable for hypertension, depression and chronic alcohol abuse. On evaluation at ED, his vitals were stable. Blood work showed normal lipase. Blood alcohol level was greater than 400. There was no leukocytosis and hemoglobin/hematocrit were stable. He had an EKG that was normal sinus rhythm. KUB showed nonspecific bowel gas, no SBO, possible hepatomegaly. He was observed over a substantial period of time. When he was reevaluated, he still had significant abdominal pain with guarding without rebound. Due to the severe nature of pain, patient was admitted. He was placed on clear liquid diet and was given Protonix. He was seen by GI. He was given banana bag. On 02/15/2018 he underwent upper endoscopy by Dr. Tyler Frye. Findings showed diffuse gastritis. Hemoglobin remained stable. Stool OB was negative. Diet was advanced. He was counseled regarding alcohol cessation. He was then discharged home. FINAL DIAGNOSES: Chronic alcohol abuse Gastritis Hypertension Acute alcohol intoxication DISPOSITION: Patient was discharged home. DISCHARGE MEDICATIONS: Refer to Discharge Medication List. DISCHARGE INSTRUCTIONS: Follow up with PCP in a week. I have been assigned to dictate discharge summary on this account, and I was not involved in the patient's management. Oliva Melendrez NP Feb 17, 2018 08:02
== END 2018-02-16 12:30 | disposition home or self-care (01) | DRG 241 ==
LOC: EDBD 06:07 → EMR 08:10 → ENRESERV 14:21 → 4W 16:00 → EDBEDREQ 17:04
PROC: 0DB68ZX Excision of Stomach, Via Natural or Artificial Opening Endoscopic, Diagnostic (ICD-10-PCS; principal; 2018-02-15 10:59)
DX: K29.21 Alcoholic gastritis with bleeding (principal); I10 Essential (primary) hypertension; F10.229 Alcohol dependence with intoxication, unspecified; F10.239 Alcohol dependence with withdrawal, unspecified; Y90.8 Blood alcohol level of 240 mg/100 ml or more; D64.9 Anemia, unspecified
CPT/HCPCS: 36415; 71045; 74018; 80048; 80053; 80076; 80307; 80329; 81003; 82270; 82378; 82607; 82728; 82746; 83540; 83550; 83690; 84439; 84443; 84484; 85025; 85044; 85610; 85730; 93005; 94003; 94150; 99285; J2250; J2405

== ENCOUNTER 2018-08-26 05:45 | Emergency (ER) | payer OTHER ==
[~2018-08-26] VITALS: Ht 167.6 cm; Wt 104.3 kg
[2018-08-26 05:45] VITALS: BP 132/76
[~2018-08-26 05:45] MED LIST changes: +CALCIUM500 M3 PO; +MULTIVITAMINS1 EAC2 ORAL; +PROTONIX20 MG ORAL
--- NOTE | 2018-08-26 06:17 | Emergency Room Report ---
History of Present Illness General Chief Complaint: Alcohol Intoxication Source: EMS (Mode Ballesteros MD) Present Illness HPI 53-year-old male presents ED with on-call intoxication. Found down on the ground. Bystanders called 911. Patient presents tremulous. Positive EtOH. Admits to alcohol abuse. Bleeding from lip. Questionable fall. Patient cannot remember what happened. Patient is well-known to [facility] has been here multiple times with alcohol intoxication. Denies any headache. Denies any chest pain or shortness of breath. Denies nausea or vomiting. No other aggravating relieving factors. Denies any other associated symptoms (oMde Ballesteros MD) Allergies: Coded Allergies: No Known Allergies (Unverified , 10/01/14) Patient History Past Medical History: HTN, other - pancreatitis Past Surgical History: none Pertinent Family History: none Social History: Reports: alcohol use; Denies: smoking, drug use Immunizations: UTD 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: PMH: Agreed; PSxH: Agreed (Mode Ballesteros MD) Nursing Documentation-PMH Past Medical History: No Stated History Hx Hypertension: Yes Hx Cancer: No Hx Gastrointestinal Problems: Yes - Pancreatitis Hx Neurological Problems: Yes Hx Tremors: Yes Hx Dizziness: Yes Hx Syncope: Yes - related to EtOH Hx Headaches: Yes (Mode Ballesteros MD) Review of Systems All Other Systems: negative except mentioned in HPI (Mode Ballesteros MD) Physical Exam Vital Signs Date Time Temp Pulse Resp B/P (MAP) Pulse Ox O2 Delivery O2 Flow Rate FiO2 08/26/18 05:30 98.4 80 18 132/76 99 Room Air Sp02 EP Interpretation: reviewed, normal General Appearance: no apparent distress, obese, other - intoxicated Head: normocephalic, atraumatic Eyes: bilateral eye normal inspection, bilateral eye PERRL ENT: hearing grossly normal, normal pharynx, no angioedema, normal voice Neck: full range of motion, supple/symm/no masses Respiratory: chest non-tender, lungs clear, normal breath sounds, speaking full sentences Cardiovascular #1: regular rate, rhythm, no edema Cardiovascular #2: 2+ carotid (R), 2+ carotid (L), 2+ radial (R), 2+ radial (L) , 2+ dorsalis pedis (R), 2+ dorsalis pedis (L) Gastrointestinal: normal bowel sounds, non tender, soft, non-distended, no guarding, no rebound Rectal: deferred Genitourinary: normal inspection, no CVA tenderness Musculoskeletal: back normal, gait/station normal, normal range of motion, non- tender Neurologic: other - intoxicated Psychiatric: other - intoxicated Reflexes: 3+ bicep (R), 3+ bicep (L), 3+ tricep (R), 3+ tricep (L), 3+ knee (R) , 3+ knee (L) Skin: normal color, no rash, warm/dry, well hydrated Lymphatic: no adenopathy (Mode Ballesteros MD) Medical Decision Making Diagnostic Impression: Primary Impression: Acute alcoholic intoxication ER Course Please for to the initial note for the history and exam At this time patient continues to rest comfortably Awakened in the morning time to use the restroom And is tolerating oral intake Review of blood work reveals elevated alcohol level Otherwise imaging and other blood test within normal limits Arrangements are being made for disposition, and discharged for outpatient With contact for family and patient stable for close follow-up Labs Test 08/26/18 06:00 White Blood Count 8.5 K/UL (4.8-10.8) Red Blood Count 5.94 M/UL (4.70-6.10) Hemoglobin 16.0 G/DL (14.2-18.0) Hematocrit 48.5 % (42.0-52.0) Mean Corpuscular Volume 82 FL (80-99) Mean Corpuscular Hemoglobin 26.9 PG (27.0-31.0) Mean Corpuscular Hemoglobin Concent 33.0 G/DL (32.0-36.0) Red Cell Distribution Width 12.9 % (11.6-14.8) Platelet Count 427 K/UL (150-450) Mean Platelet Volume 8.1 FL (6.5-10.1) Neutrophils (%) (Auto) 43.4 % (45.0-75.0) Lymphocytes (%) (Auto) 46.7 % (20.0-45.0) Monocytes (%) (Auto) 4.7 % (1.0-10.0) Eosinophils (%) (Auto) 3.8 % (0.0-3.0) Basophils (%) (Auto) 1.5 % (0.0-2.0) Sodium Level 142 MMOL/L (136-145) Potassium Level 3.9 MMOL/L (3.5-5.1) Chloride Level 102 MMOL/L (98-107) Carbon Dioxide Level 29 MMOL/L (21-32) Anion Gap 11 mmol/L (5-15) Blood Urea Nitrogen 21 mg/dL (7-18) Creatinine 1.0 MG/DL (0.55-1.30) Estimat Glomerular Filtration Rate > 60 mL/min (>60) Glucose Level 113 MG/DL (74-106) Calcium Level 8.5 MG/DL (8.5-10.1) Total Bilirubin 0.2 MG/DL (0.2-1.0) Aspartate Amino Transf (AST/SGOT) 48 U/L (15-37) Alanine Aminotransferase (ALT/SGPT) 51 U/L (12-78) Alkaline Phosphatase 157 U/L (46-116) Total Protein 9.0 G/DL (6.4-8.2) Albumin 3.8 G/DL (3.4-5.0) Globulin 5.2 g/dL Albumin/Globulin Ratio 0.7 (1.0-2.7) Salicylates Level 1.4 ug/mL (2.8-20) Urine Opiates Screen Negative (NEGATIVE) Acetaminophen Level < 2 MCG/ML (10-30) Urine Barbiturates Screen Negative (NEGATIVE) Phencyclidine (PCP) Screen Negative (NEGATIVE) Urine Amphetamines Screen Negative (NEGATIVE) Urine Benzodiazepines Screen Negative (NEGATIVE) Urine Cocaine Screen Negative (NEGATIVE) Urine Marijuana (THC) Screen Negative (NEGATIVE) Serum Alcohol 379 mg/dL (Shaneka Knowles DO) CT/MRI/US Diagnostic Results CT/MRI/US Diagnostic Results : Impression CT head no acute disease (Shaneka Knowles DO) Last Vital Signs Date Time Temp Pulse Resp B/P (MAP) Pulse Ox O2 Delivery O2 Flow Rate FiO2 08/26/18 05:30 98.4 80 18 132/76 99 Room Air (Mode Ballesteros MD) Status: improved (Shaneka Knowles DO) Disposition: HOME, SELF-CARE Condition: Improved Additional Instructions: Patient is provided with the discharge instructions notified to follow up with primary doctor in the next 2-3 days otherwise return to the er with any worsening symptoms. Please note that this report is being documented using [employer] technology. This can lead to erroneous entry secondary to incorrect interpretation by the dictating instrument. Mode Ballesteros MD Aug 26, 2018 06:17 Shaneka Knowles DO Aug 26, 2018 08:55
[2018-08-26 06:21] LABS: BASOPHILS % (AUTO) 1.5 % (0.0-2.0); EOSINOPHILS % (AUTO) 3.8 % (0.0-3.0); HEMATOCRIT 48.5 % (42.0-52.0); LYMPHOCYTES % (AUTO) 46.7 % (20.0-45.0); MEAN CORPUSCULAR VOLUME 82 FL (80-99); MONOCYTES % (AUTO) 4.7 % (1.0-10.0); NEUTROPHILS % (AUTO) 43.4 % (45.0-75.0); PLATELET COUNT 427 K/UL (150-450); RED BLOOD COUNT 5.94 M/UL (4.70-6.10); RED CELL DISTRIBUTION WIDTH 12.9 % (11.6-14.8); WHITE BLOOD COUNT 8.5 K/UL (4.8-10.8)
[2018-08-26 06:32] LABS: ANION GAP 11 mmol/L (5-15); BLOOD UREA NITROGEN 21 mg/dL (7-18); CALCIUM 8.5 MG/DL (8.5-10.1); CARBON DIOXIDE 29 MMOL/L (21-32); CHLORIDE 102 MMOL/L (98-107); POTASSIUM 3.9 MMOL/L (3.5-5.1); SODIUM 142 MMOL/L (136-145)
[2018-08-26 06:38] LABS: ALANINE AMINOTRANSFERASE 51 U/L (12-78); ALBUMIN 3.8 G/DL (3.4-5.0); ALBUMIN/GLOBULIN RATIO 0.7 (1.0-2.7); ALKALINE PHOSPHATASE 157 U/L (46-116); ASPARTATE AMINO TRANSFERASE 48 U/L (15-37); BILIRUBIN,TOTAL 0.2 MG/DL (0.2-1.0)
[2018-08-26 07:00] VITALS: BP 136/87
[2018-08-26 08:51] VITALS: BP 132/79
[2018-08-26 09:21] VITALS: BP 132/79
== END 2018-08-26 09:21 | disposition home or self-care (01) ==
LOC: EDBD 05:45 → EMR 06:15
DX: F10.129 Alcohol abuse with intoxication, unspecified (principal); I10 Essential (primary) hypertension
CPT/HCPCS: 36415; 70450; 80053; 80307; 80329; 85025; 96360; 99284

== ENCOUNTER 2019-02-10 01:15 | Emergency (ER) | payer OTHER ==
[~2019-02-10] VITALS: Ht 170.2 cm; Wt 90.7 kg
[2019-02-10 01:16] VITALS: BP 137/91
--- NOTE | 2019-02-10 01:16 | NUR ---
ED Nurse Note: Patient presents BIBA with complaints of abdominal pain with ETOH intoxication.
[2019-02-10] MEDS ORDERED: Mylanta II UD 30ml ORAL ONE (01:30)
[2019-02-10] MEDS ORDERED: Dicyclomine HCl 10mg/5ml oral soln ORAL ONE (01:30)
[2019-02-10 01:44] LABS: BASOPHILS % (AUTO) 1.7 % (0.0-2.0); EOSINOPHILS % (AUTO) 2.5 % (0.0-3.0); HEMOGLOBIN 14.7 G/DL (14.2-18.0); LYMPHOCYTES % (AUTO) 35.4 % (20.0-45.0); MEAN CORPUSCULAR VOLUME 81 FL (80-99); MONOCYTES % (AUTO) 7.9 % (1.0-10.0); NEUTROPHILS % (AUTO) 52.5 % (45.0-75.0); PLATELET COUNT 390 K/UL (150-450); RED BLOOD COUNT 5.33 M/UL (4.70-6.10); RED CELL DISTRIBUTION WIDTH 13.2 % (11.6-14.8); WHITE BLOOD COUNT 10.9 K/UL (4.8-10.8)
--- NOTE | 2019-02-10 01:47 | NUR ---
ED Nurse Note: Received report from Mariia/NOAH. Pt is A/OX4. VSS, will continue to monitor.
[2019-02-10 01:54] LABS: ANION GAP 12 mmol/L (5-15); BLOOD UREA NITROGEN 24 mg/dL (7-18); CALCIUM 8.7 MG/DL (8.5-10.1); CARBON DIOXIDE 26 MMOL/L (21-32); CHLORIDE 101 MMOL/L (98-107); CREATININE 1.6 MG/DL (0.55-1.30); POTASSIUM 3.4 MMOL/L (3.5-5.1); SODIUM 139 MMOL/L (136-145)
[2019-02-10 01:58] LABS: ALANINE AMINOTRANSFERASE 54 U/L (12-78); ALBUMIN 3.8 G/DL (3.4-5.0); ALBUMIN/GLOBULIN RATIO 0.9 (1.0-2.7); ALKALINE PHOSPHATASE 149 U/L (46-116); ASPARTATE AMINO TRANSFERASE 54 U/L (15-37); BILIRUBIN,TOTAL 0.3 MG/DL (0.2-1.0)
--- NOTE | 2019-02-10 06:12 | Emergency Room Report ---
History of Present Illness General Chief Complaint: Abdominal Pain Source: Patient Present Illness HPI Patient presents with complaints of abdominal pain epigastric in nature denies any vomiting Patient also complains of palpitations Patient reports that he was drinking more excessively than usual Denies any fall or trauma denies any headache Pain is a sharp and cramping type pain denies any change of position or exertion Allergies: Coded Allergies: No Known Allergies (Unverified , 10/01/14) Patient History Past Medical History: see triage record Pertinent Family History: none 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: PMH: Agreed; PSxH: Agreed Nursing Documentation-PMH Past Medical History: No Stated History Hx Hypertension: Yes Hx Cancer: No Hx Gastrointestinal Problems: Yes - Pancreatitis Hx Neurological Problems: Yes Hx Tremors: Yes Hx Dizziness: Yes Hx Syncope: Yes - related to EtOH Hx Headaches: Yes Review of Systems All Other Systems: negative except mentioned in HPI Physical Exam Vital Signs Date Time Temp Pulse Resp B/P (MAP) Pulse Ox O2 Delivery O2 Flow Rate FiO2 02/10/19 01:14 97.9 115 16 137/91 (106) 98 Room Air Sp02 EP Interpretation: reviewed, normal General Appearance: well appearing, no apparent distress - Patient is inebriated slurring his speech Head: normocephalic, atraumatic Eyes: bilateral eye PERRL, bilateral eye EOMI ENT: hearing grossly normal, normal pharynx, TMs + canals normal, uvula midline Neck: full range of motion, supple, no meningismus, no bony tend Respiratory: lungs clear, normal breath sounds, no rhonchi, no respiratory distress, no retraction, no accessory muscle use Cardiovascular #1: normal peripheral pulses, regular rate, rhythm, no edema, no gallop, no JVD, no murmur Gastrointestinal: normal bowel sounds, non tender - Subjectively points to the epigastric area, soft, no mass, no organomegaly, non-distended, no guarding, no hernia, no pulsatile mass, no rebound Genitourinary: no CVA tenderness Musculoskeletal: normal inspection Neurologic: oriented x3, responsive, dietitian III-XII nml as tested, motor strength/ tone normal, sensory intact Psychiatric: mood/affect normal Skin: normal color, no rash, warm/dry, palpation normal Lymphatic: normal inspection, no adenopathy Medical Decision Making Diagnostic Impression: Primary Impression: Abdominal pain ER Course With the history exam and presentation, multiple differentials considered, including but not limited to appendicitis, gastritis, cholecystitis, diverticulitis Patient did have blood work initiated kidney function appears mildly elevated Further hydration is provided Patient has also done better with GI cocktail Abdomen remains soft Patient allowed to rest And after prolonged observation continues to do well And stable for close outpatient follow-up Labs Test 02/10/19 01:35 White Blood Count 10.9 K/UL (4.8-10.8) Red Blood Count 5.33 M/UL (4.70-6.10) Hemoglobin 14.7 G/DL (14.2-18.0) Hematocrit 43.0 % (42.0-52.0) Mean Corpuscular Volume 81 FL (80-99) Mean Corpuscular Hemoglobin 27.5 PG (27.0-31.0) Mean Corpuscular Hemoglobin Concent 34.1 G/DL (32.0-36.0) Red Cell Distribution Width 13.2 % (11.6-14.8) Platelet Count 390 K/UL (150-450) Mean Platelet Volume 8.0 FL (6.5-10.1) Neutrophils (%) (Auto) 52.5 % (45.0-75.0) Lymphocytes (%) (Auto) 35.4 % (20.0-45.0) Monocytes (%) (Auto) 7.9 % (1.0-10.0) Eosinophils (%) (Auto) 2.5 % (0.0-3.0) Basophils (%) (Auto) 1.7 % (0.0-2.0) Sodium Level 139 MMOL/L (136-145) Potassium Level 3.4 MMOL/L (3.5-5.1) Chloride Level 101 MMOL/L (98-107) Carbon Dioxide Level 26 MMOL/L (21-32) Anion Gap 12 mmol/L (5-15) Blood Urea Nitrogen 24 mg/dL (7-18) Creatinine 1.6 MG/DL (0.55-1.30) Estimat Glomerular Filtration Rate 45.4 mL/min (>60) Glucose Level 126 MG/DL (74-106) Calcium Level 8.7 MG/DL (8.5-10.1) Total Bilirubin 0.3 MG/DL (0.2-1.0) Aspartate Amino Transf (AST/SGOT) 54 U/L (15-37) Alanine Aminotransferase (ALT/SGPT) 54 U/L (12-78) Alkaline Phosphatase 149 U/L (46-116) Total Protein 8.0 G/DL (6.4-8.2) Albumin 3.8 G/DL (3.4-5.0) Globulin 4.2 g/dL Albumin/Globulin Ratio 0.9 (1.0-2.7) Lipase 187 U/L (73-393) Rhythm Strip Diag. Results EP Interpretation: yes Rate: 60 Rhythm: NSR, no PVC's, no ectopy Last Vital Signs Date Time Temp Pulse Resp B/P (MAP) Pulse Ox O2 Delivery O2 Flow Rate FiO2 02/10/19 01:16 115 16 Room Air 02/10/19 01:16 97.9 137/91 98 Status: improved Disposition: HOME, SELF-CARE Condition: Improved Referrals: [facility],REFERRING (PCP) Additional Instructions: Patient is provided with the discharge instructions notified to follow up with primary doctor in the next 2-3 days otherwise return to the er with any worsening symptoms. Please note that this report is being documented using [employer] technology. This can lead to erroneous entry secondary to incorrect interpretation by the dictating instrument. Shaneka Knowles DO Feb 10, 2019 06:12
[2019-02-10] MEDS ORDERED: PEPCID AC20 M2 PO (06:13)
[2019-02-10 06:19] VITALS: BP 132/90
--- NOTE | 2019-02-10 06:19 | NUR ---
ER DISCHARGE NOTE: Patient is cleared to be discharged per Eleni. Pt is aox4 on room air with stable vital signs. Pt was given dc and prescription instructions and was able to verbalize understanding . Pt id band removed. Pt is able to ambulate with steady gait and took all belongings.
== END 2019-02-10 06:19 | disposition home or self-care (01) ==
LOC: EDBD 01:15 → EMR 01:32
DX: R10.13 Epigastric pain (principal); I10 Essential (primary) hypertension
CPT/HCPCS: 36415; 80053; 83690; 85025; 96361; 96374; 99284; S0028

== ENCOUNTER 2020-08-16 08:37 | Inpatient (IN) | payer OTHER ==
[~2020-08-16] VITALS: Ht 162.6 cm; Wt 108.0 kg
[~2020-08-16 08:37] MED LIST changes: +PEPCID AC20 M2 PO
--- NOTE | 2020-08-16 08:40 | NUR ---
ED Nurse Note: brought in by [id number] from home d/t sob. pt reports positive covid on 08/13. 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 xr at bedside.
[2020-08-16] MEDS ORDERED: Albuterol ud Inhalation HHN ONE (08:45)
--- NOTE | 2020-08-16 08:45 | Emergency Room Report ---
History of Present Illness General Chief Complaint: General Complaint Source: Patient Present Illness HPI Patient is a 55-year-old male PMHx of obesity who presents to the ER complaining of shortness of breath. Patient states that he was diagnosed with COVID-19 5 days ago. Patient states that he does not feel well. He complains of weakness and generalized body aches. He complains of cough. He denies any abdominal pain, nausea, vomiting or diarrhea. Patient was brought in from home by EMS. 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 COVID-19 Screening: Positive COVID-19 COVID-19 Testing Source: [facility] Patient History 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: PMH: Agreed; PSxH: Agreed Nursing Documentation-PMH Past Medical History Deferred: No Family Available Past Medical History: Deferred Hx Hypertension: Yes Hx Cancer: No Hx Gastrointestinal Problems: Yes - Pancreatitis Hx Neurological Problems: Yes Hx Tremors: Yes Hx Dizziness: Yes Hx Syncope: Yes - related to EtOH Hx Headaches: Yes Review of Systems All Other Systems: negative except mentioned in HPI Physical Exam Vital Signs Date Time Temp Pulse Resp B/P (MAP) Pulse Ox O2 Delivery O2 Flow Rate FiO2 08/16/20 08:33 90.0 90 20 150/90 (110) 98 Room Air Sp02 EP Interpretation: reviewed, normal General Appearance: alert, GCS 15, mild distress Head: normocephalic, atraumatic Eyes: bilateral eye normal inspection, bilateral eye PERRL ENT: hearing grossly normal, normal pharynx, no angioedema, normal voice Neck: no meningismus Respiratory: respiratory distress, accessory muscle use, other - Tachypneic Cardiovascular #1: regular rate, rhythm Gastrointestinal: non tender, soft, overweight Rectal: deferred Musculoskeletal: no calf tenderness, no lower extremity edema Neurologic: steam box hand III-XII nml as tested, oriented x3 Psychiatric: no suicidal/homicidal ideation Skin: no rash Lymphatic: no adenopathy Procedures Critical Care Time Critical Care Time Total critical care time: Approximately 35 minutes. Due to a high probability of clinically significant, life threatening deterioration, the patient required my highest level of preparedness to intervene emergently and I personally spent this critical care time directly and personally managing the patient. This critical care time included obtaining a history; examining the patient; pulse oximetry; ordering and review of studies; arranging urgent treatment with development of a management plan; evaluation of patient's response to treatment; frequent reassessment; and, discussions with other providers.This critical care time was performed to assess and manage the high probability of imminent, life- threatening deterioration that could result in multi-organ failure. It was exclusive of separately billable procedures and treating other patients and teaching time. Please see MDM section and the rest of the note for further information on patient assessment and treatment. Medical Decision Making Diagnostic Impression: Primary Impression: Respiratory distress Additional Impressions: Pneumonia due to COVID-19 virus Hypoxemia NSTEMI (non-ST elevated myocardial infarction) ER Course Patient placed on supplemental oxygen. Patient is hypoxic and mildly hypercarbic on his blood gas. Give nebulizer treatments and IV Decadron. Patient's chest x-ray demonstrates diffuse bilateral patchy infiltrates. Patient started on azithromycin as well as cefepime. Patient's D-dimer is elevated and Lovenox has been ordered. Laboratory Tests Test 08/16/20 09:10 08/16/20 09:23 White Blood Count 8.1 K/UL (4.8-10.8) Red Blood Count 5.39 M/UL (4.70-6.10) Hemoglobin 14.4 G/DL (14.2-18.0) Hematocrit 42.2 % (42.0-52.0) Mean Corpuscular Volume 78 FL (80-99) L Mean Corpuscular Hemoglobin 26.8 PG (27.0-31.0) L Mean Corpuscular Hemoglobin Concent 34.2 G/DL (32.0-36.0) Red Cell Distribution Width 15.7 % (11.6-14.8) H Platelet Count 326 K/UL (150-450) Mean Platelet Volume 9.1 FL (6.5-10.1) Neutrophils (%) (Auto) 38.7 % (45.0-75.0) L Lymphocytes (%) (Auto) 48.8 % (20.0-45.0) H Monocytes (%) (Auto) 7.7 % (1.0-10.0) Eosinophils (%) (Auto) 3.2 % (0.0-3.0) H Basophils (%) (Auto) 1.7 % (0.0-2.0) Prothrombin Time 10.7 SEC (9.30-11.50) Prothrombin Time INR 1.0 (0.9-1.1) Activated Partial Thromboplast Time 27 SEC (23-33) D-Dimer 0.79 mg/L FEU (0.00-0.49) H Sodium Level 139 MMOL/L (136-145) Potassium Level 3.8 MMOL/L (3.5-5.1) Chloride Level 102 MMOL/L (98-107) Carbon Dioxide Level 29 MMOL/L (21-32) Anion Gap 9 mmol/L (5-15) Blood Urea Nitrogen 21 mg/dL (7-18) H Creatinine 0.8 MG/DL (0.55-1.30) Estimated Glomerular Filtration Rate > 60 mL/min (>60) Glucose Level 132 MG/DL (74-106) H Lactic Acid Level 2.30 mmol/L (0.4-2.0) H Calcium Level 8.3 MG/DL (8.5-10.1) L Magnesium Level 2.2 MG/DL (1.8-2.4) Total Bilirubin 0.2 MG/DL (0.2-1.0) Aspartate Amino Transferase (AST) 32 U/L (15-37) Alanine Aminotransferase (ALT) 29 U/L (12-78) Alkaline Phosphatase 151 U/L (46-116) H Troponin I 0.060 ng/mL (0.000-0.056) Pro-B-Type Natriuretic Peptide 10 pg/mL (0-125) Total Protein 8.2 G/DL (6.4-8.2) Albumin 3.5 G/DL (3.4-5.0) Globulin 4.7 g/dL Albumin/Globulin Ratio 0.7 (1.0-2.7) L Arterial Blood pH 7.375 (7.350-7.450) Arterial Blood Partial Pressure CO2 48.7 mmHg (35.0-45.0) H Arterial Blood Partial Pressure O2 71.3 mmHg (75.0-100.0) L Arterial Blood HCO3 27.8 mmol/L (22.0-26.0) H Arterial Blood Oxygen Saturation 91.5 % (95-100) L Arterial Blood Base Excess 1.8 (-2-2) Pankaj Test Positive Microbiology Date/Time Source Procedure Growth Status 08/16/20 09:10 Nasopharynx SARS-CoV-2 RdRp Gene Assay - Final Complete 08/16/20 09:10 Nasal Nares - Final Complete 08/16/20 09:10 Nasal Nares - Final Complete Rhythm Strip Diag. Results Rhythm Strip Time: 09:58 EP Interpretation: yes - Alissa Peña MD Rate: 82 bpm Rhythm: NSR, no PVC's, no ectopy Chest X-Ray Diagnostic Results Chest X-Ray Diagnostic Results : Chest X-Ray Ordered: Yes # of Views/Limited/Complete: 1 View Indication: Chest Pain EP Interpretation: Yes Interpretation: no effusion, no pneumothorax, other - Bilateral diffuse patchy infiltrates Impression: Other - pneumonia Electronically Signed by: Alissa Peña MD Last Vital Signs Date Time Temp Pulse Resp B/P (MAP) Pulse Ox O2 Delivery O2 Flow Rate FiO2 08/16/20 08:33 90.0 90 20 150/90 (110) 98 Room Air Disposition: ADMITTED INPATIENT - SDU Condition: Critical Physician Consult: Dr. Muir, 1020am Additional Instructions: Please note that this report is being documented using [employer] technology. This can lead to erroneous entry secondary to incorrect interpretation by the dictating instrument. Alissa Peña M.D. Aug 16, 2020 08:45
--- NOTE | 2020-08-16 08:45 | NUR ---
ED Nurse Note: blood, covid swab, flu swab collected and sent to lab.
[2020-08-16] MEDS ORDERED: Cefepime HCl 2 GM in D5W 55 ML IVPB ONE (09:00)
[2020-08-16] MEDS ORDERED: Azithromycin 500 MG in NS 275 ML IV ONE (09:00)
--- NOTE | 2020-08-16 09:06 | Diagnostic Imaging Report ---
EXAM: XR Chest, 1 View CLINICAL HISTORY: SOB TECHNIQUE: Frontal view of the chest. COMPARISON: 02/13/18 FINDINGS: Lungs: There are mild bilateral mixed interstitial and alveolar infiltrates most prominent in the perihilar regions and lower lobes. This likely represent pulmonary edema however pneumonia not excluded. Pleural space: There is a small right pleural effusion No pneumothorax. Heart: The heart size is mildly enlarged. Mediastinum: Unremarkable. Bones/joints: Unremarkable. IMPRESSION: There are mild bilateral mixed interstitial and alveolar infiltrates most prominent in the perihilar regions and lower lobes. This likely represent pulmonary edema however pneumonia not excluded.
[2020-08-16 09:07] VITALS: BP 147/81
[2020-08-16 09:16] LABS: BASOPHILS % (AUTO) 1.7 % (0.0-2.0); EOSINOPHILS % (AUTO) 3.2 % (0.0-3.0); HEMATOCRIT 42.2 % (42.0-52.0); HEMOGLOBIN 14.4 G/DL (14.2-18.0); LYMPHOCYTES % (AUTO) 48.8 % (20.0-45.0); MEAN CORPUSCULAR VOLUME 78 FL (80-99); MONOCYTES % (AUTO) 7.7 % (1.0-10.0); NEUTROPHILS % (AUTO) 38.7 % (45.0-75.0); PLATELET COUNT 326 K/UL (150-450); RED BLOOD COUNT 5.39 M/UL (4.70-6.10); RED CELL DISTRIBUTION WIDTH 15.7 % (11.6-14.8); WHITE BLOOD COUNT 8.1 K/UL (4.8-10.8)
[2020-08-16 09:29] LABS: ANION GAP 9 mmol/L (5-15); BLOOD UREA NITROGEN 21 mg/dL (7-18); CALCIUM 8.3 MG/DL (8.5-10.1); CARBON DIOXIDE 29 MMOL/L (21-32); CHLORIDE 102 MMOL/L (98-107); CREATININE 0.8 MG/DL (0.55-1.30); POTASSIUM 3.8 MMOL/L (3.5-5.1); SODIUM 139 MMOL/L (136-145)
[2020-08-16 09:39] LABS: ALANINE AMINOTRANSFERASE 29 U/L (12-78); ALBUMIN 3.5 G/DL (3.4-5.0); ALBUMIN/GLOBULIN RATIO 0.7 (1.0-2.7); ALKALINE PHOSPHATASE 151 U/L (46-116); ASPARTATE AMINO TRANSFERASE 32 U/L (15-37); BILIRUBIN,TOTAL 0.2 MG/DL (0.2-1.0)
[2020-08-16] MEDS ORDERED: dexAMETHasone 10mg/ml Inj IV ONE (09:45)
[2020-08-16] MEDS ORDERED: Albuterol/Ipratropium 3ml neb HHN ONE (09:45)
--- NOTE | 2020-08-16 09:56 | NUR ---
ED Nurse Note: rt at bedside for breathing tx
[2020-08-16] MEDS ORDERED: Aspirin Baby 81mg ORAL ONE (10:00)
--- NOTE | 2020-08-16 10:00 | NUR ---
ED Nurse Note: reflex lactic collected and sent to lab
[2020-08-16] MEDS ORDERED: Enoxaparin 40mg Inj SUBQ SCH (10:15)
[2020-08-16 10:22] VITALS: BP 136/75
[2020-08-16] MEDS ORDERED: Albuterol/Ipratropium 3ml neb HHN PRN (10:30)
--- NOTE | 2020-08-16 10:33 | NUR ---
ED Nurse Note: belongings list completed with patient. pt has $94 in premise that he wishes to keep. pt signed consent for belongings.
--- NOTE | 2020-08-16 10:47 | History and Physical ---
History of Present Illness General Date patient seen: Aug 16, 2020 Time patient seen: 12:30 Reason for Hospitalization: General Complaint: Shortness of breath Present Illness HPI 55-year-old male PMHx of obesity who presents to the ER complaining of shortness of breath. Patient states that he was diagnosed with COVID-19 - 5 days ago. Patient states that he does not feel well. He complains of weakness and generalized body aches. He complains of cough. He denies any abdominal pain, nausea, vomiting or diarrhea. Patient was brought in from home by EMS and confirmed to have Co-Sars 2 ( Covid 19 ) in the ER - Started on Dexamethasone, Enoxaparin, Cefepime, Azithromycin, ASA and admission is requested. He reported increasing RUQ pain and US is being completed at the bedside. He reports having been drinking a in the last 4 days and a total of 4 bottles of Whiskey ingested in that time period. 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 His was diagnosed with Covid 19 and is staying in a different location - quarantined and not in contact with him. Bipap is started due to increasing work of breathing and hypoxemia. Allergies: Coded Allergies: No Known Allergies (Unverified , 10/01/14) COVID-19 Screening Contact w/high risk pt: No Experienced COVID-19 symptoms?: Yes Coronavirus symptoms experienc: Fever (T>100.4F or >38C), Chills, Cough, Loss of taste or smell Medication History Scheduled Famotidine (Pepcid Ac), 20 MG PO DAILY Multivitamins* (Multivitamins*), 1 TAB ORAL DAILY, (Reported) No Known Medications* (NKM - No Known Medications*), 0 ., (Reported) Pantoprazole Sodium (Protonix), 20 MG ORAL DAILY Miscellaneous Medications Calcium Carbonate (Calcium), 500 MG PO, (Reported) Patient History Healthcare decision maker Resuscitation status Advanced Directive on File Review of Systems All Other Systems: negative except mentioned in HPI Physical Exam General Appearance: WD/WN, moderate distress Lines, tubes and drains: peripheral HEENT: normocephalic Neck: non-tender Respiratory/Chest: respiratory distress, decreased breath sounds Cardiovascular/Chest: tachycardia Abdomen: tender, other - R UQ tenderness to palpation Extremities: non-tender Last 24 Hour Vital Signs Date Time Temp Pulse Resp B/P (MAP) Pulse Ox O2 Delivery O2 Flow Rate FiO2 08/16/20 10:22 89 22 136/75 98 Nasal Cannula 4.0 36 08/16/20 09:59 92 16 97 Nasal Cannula 4.0 36 89 15 96 08/16/20 09:07 98.3 92 20 147/81 98 Room Air 08/16/20 09:07 88 20 Room Air 96 08/16/20 08:33 98.1 90 20 150/90 (110) 98 Room Air Laboratory Tests Test 08/16/20 09:10 08/16/20 09:23 08/16/20 10:00 White Blood Count 8.1 K/UL (4.8-10.8) Red Blood Count 5.39 M/UL (4.70-6.10) Hemoglobin 14.4 G/DL (14.2-18.0) Hematocrit 42.2 % (42.0-52.0) Mean Corpuscular Volume 78 FL (80-99) L Mean Corpuscular Hemoglobin 26.8 PG (27.0-31.0) L Mean Corpuscular Hemoglobin Concent 34.2 G/DL (32.0-36.0) Red Cell Distribution Width 15.7 % (11.6-14.8) H Platelet Count 326 K/UL (150-450) Mean Platelet Volume 9.1 FL (6.5-10.1) Neutrophils (%) (Auto) 38.7 % (45.0-75.0) L Lymphocytes (%) (Auto) 48.8 % (20.0-45.0) H Monocytes (%) (Auto) 7.7 % (1.0-10.0) Eosinophils (%) (Auto) 3.2 % (0.0-3.0) H Basophils (%) (Auto) 1.7 % (0.0-2.0) Prothrombin Time 10.7 SEC (9.30-11.50) Prothromb Time International Ratio 1.0 (0.9-1.1) Activated Partial Thromboplast Time 27 SEC (23-33) D-Dimer 0.79 mg/L FEU (0.00-0.49) H Sodium Level 139 MMOL/L (136-145) Potassium Level 3.8 MMOL/L (3.5-5.1) Chloride Level 102 MMOL/L (98-107) Carbon Dioxide Level 29 MMOL/L (21-32) Anion Gap 9 mmol/L (5-15) Blood Urea Nitrogen 21 mg/dL (7-18) H Creatinine 0.8 MG/DL (0.55-1.30) Estimat Glomerular Filtration Rate > 60 mL/min (>60) Glucose Level 132 MG/DL (74-106) H Lactic Acid Level 2.30 mmol/L (0.4-2.0) H Pending Calcium Level 8.3 MG/DL (8.5-10.1) L Magnesium Level 2.2 MG/DL (1.8-2.4) Total Bilirubin 0.2 MG/DL (0.2-1.0) Aspartate Amino Transf (AST/SGOT) 32 U/L (15-37) Alanine Aminotransferase (ALT/SGPT) 29 U/L (12-78) Alkaline Phosphatase 151 U/L (46-116) H Troponin I 0.060 ng/mL (0.000-0.056) Pro-B-Type Natriuretic Peptide 10 pg/mL (0-125) Total Protein 8.2 G/DL (6.4-8.2) Albumin 3.5 G/DL (3.4-5.0) Globulin 4.7 g/dL Albumin/Globulin Ratio 0.7 (1.0-2.7) L Arterial Blood pH 7.375 (7.350-7.450) Arterial Blood Partial Pressure CO2 48.7 mmHg (35.0-45.0) H Arterial Blood Partial Pressure O2 71.3 mmHg (75.0-100.0) L Arterial Blood HCO3 27.8 mmol/L (22.0-26.0) H Arterial Blood Oxygen Saturation 91.5 % (95-100) L Arterial Blood Base Excess 1.8 (-2-2) Pankaj Test Positive Microbiology Date/Time Source Procedure Growth Status 08/16/20 09:10 Nasopharynx SARS-CoV-2 RdRp Gene Assay - Final Complete 08/16/20 09:10 Nasal Nares - Final Complete 08/16/20 09:10 Nasal Nares - Final Complete Height (Feet): 5 Height (Inches): 4.00 Weight (Pounds): 250 Medications Current Medications Medications (Trade) Dose Ordered Sig/Edy Route PRN Reason Start Time Stop Time Status Last Admin Dose Admin Albuterol/ Ipratropium (Albuterol/ Ipratropium) 3 ml EVERY 6 HOURS PRN HHN Shortness of Breath 08/16/20 10:30 08/21/20 10:29 UNV Azithromycin 500 mg/Sodium Chloride 275 ml @ 275 mls/hr DAILY IV 08/17/20 09:00 08/21/20 00:00 UNV Cefepime HCl 2 gm/ Dextrose 55 ml @ 110 mls/hr EVERY 8 HOURS IVPB 08/16/20 14:00 08/23/20 13:59 UNV Dexamethasone Sodium Phosphate (Decadron 10mg/ ml Inj) 6 mg DAILY IV 08/17/20 09:00 08/25/20 00:00 UNV Dextrose (Dextrose 50%) 25 ml Q30M PRN IV Hypoglycemia 08/16/20 10:30 11/14/20 10:29 UNV Dextrose (Dextrose 50%) 50 ml Q30M PRN IV Hypoglycemia 08/16/20 10:30 11/14/20 10:29 UNV Enoxaparin Sodium (Lovenox) 40 mg Q24H SUBQ 08/16/20 11:30 11/14/20 11:29 UNV Sodium Chloride 1,000 ml @ 75 mls/hr DAILY IV 08/17/20 09:00 09/16/20 08:59 UNV Assessment/Plan Status: not improved Assessment/Plan: 55 y/o M obese admitted to the Hospital due to: # Acute respiratory failure most likely secondary to Co-Sars 2 ( Covid 19 ) pneumonia Admit to [facility] Cefepime and Azithromycin ordered Pulmonary consulation ID consultation to consider Remdisivir therapy Dexamethasone started Bipap support as needed # R upper quadrant pain in the setting of recent alcohol binge US completed and no evidence of cirrhosis noted Monitor closely for risk of alcoholic hepatitis Librium PRN for risk of etoh withdrawal Counselling will be provided for alcohol moderation # Obesity Dietary education DVT ppx with LMWH Gi ppx with Pepcid Actv as tolerated FULL CODE Heather Muir MD Aug 16, 2020 10:47
[2020-08-16 12:30] VITALS: BP 121/78
[2020-08-16] MEDS ORDERED: Pantoprazole Inj IVP ONE (12:30)
--- NOTE | 2020-08-16 12:56 | NUR ---
ED Nurse Note: Dr. Rodriguez at pt bedside assessing pt
--- NOTE | 2020-08-16 13:08 | NUR ---
ED Nurse Note: pt received from Ethan Salas RN. pt is resting in bed, speaking on telephone. 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
--- NOTE | 2020-08-16 13:33 | NUR ---
ED Nurse Note: pt is c/o R sided abd pain that did not improve after he received protonix. ERMD notified
[2020-08-16] MEDS ORDERED: fentaNYL 100 mcg/2 mL IV ONE (13:45)
--- NOTE | 2020-08-16 13:45 | NUR ---
ED Nurse Note: US at pt bedside, Dr. Muir also here to assess pt
--- NOTE | 2020-08-16 14:05 | Diagnostic Imaging Report ---
EXAM: US Abdomen Complete CLINICAL HISTORY: PAIN TECHNIQUE: Real-time ultrasound of the abdomen with image documentation. COMPARISON: No relevant prior studies available. FINDINGS: Liver: Unremarkable. Gallbladder: No cholelithiasis or evidence of acute cholecystitis. Common bile duct: CBD 4 mm. Pancreas: Unremarkable as visualized. Kidneys: No hydronephrosis. Spleen: Unremarkable. Aorta: Unremarkable as visualized. Inferior vena cava: Unremarkable as visualized. IMPRESSION: No cholelithiasis or evidence of acute cholecystitis.
--- NOTE | 2020-08-16 14:06 | NUR ---
ED Nurse Note: pt admitted to drinking 4 bottles of whiskey in 3 days, reports that his is also COVID + but that she has been quarantining from him for 14 days. pt saturation drops down to 93%, pt placed on 3L NC, saturation improving to97%
--- NOTE | 2020-08-16 14:30 | Consultation ---
DATE OF CONSULTATION: 08/16/2020 PULMONARY CONSULTATION CONSULTING PHYSICIAN: Chandana Rodriguez MD. HISTORY OF PRESENT ILLNESS: This is a 55-year-old male, who was admitted to the hospital after being found to be COVID-19 positive. The patient was seen in the emergency room this morning complaining of shortness of breath. He states he was tested and found to be positive for COVID-19 five days ago, although over the last few days, he has been feeling unwell. He reported weakness and generalized body aches. He was imaged in the emergency room here today and there are bilateral infiltrates noted. The patient has evidence of elevation of troponin at 0.06. ABG shows pH 7.37, pCO2 48, pO2 71. D-dimer is 0.79. His repeat COVID-19 testing is positive. The patient denies any other significant past history, although old records indicate admission and diagnosis of chronic gastritis. HOME MEDICATIONS: None. PAST MEDICAL HISTORY: GERD and previous pancreatitis. SOCIAL HISTORY: Admits to previous tobacco and alcohol usage. REVIEW OF SYSTEMS: Denies any headaches, hematemesis, melena, hematochezia, night sweats, or weight loss. PHYSICAL EXAMINATION: GENERAL: Reveals a 55-year-old male. HEENT: Unremarkable. LUNGS: Clear breath sounds bilaterally. ABDOMEN: Soft. EXTREMITIES: There is no edema. NEUROLOGIC: Nonfocal. LABORATORY DATA: Lab testing shows as discussed above. Normal CBC and BMP. Glucose 132. ABG discussed above. IMPRESSION: 1. COVID-19 pneumonia. 2. History of previous GERD and pancreatitis. 3. . DISCUSSION: Admit to the hospital. The patient will benefit from remdesivir and Decadron. We will initiate Decadron. Continue oxygen, pulmonary hygiene. We will follow carefully. Chandana Rodriguez M.D. DR: BIMAL JOB#: [id number] CC:
--- NOTE | 2020-08-16 15:16 | NUR ---
ED Nurse Note: reoprt given to NOAH Cardona
[2020-08-16 15:48] VITALS: BP 141/93
--- NOTE | 2020-08-16 15:51 | Consultation ---
History of Present Illness General Date patient seen: Aug 16, 2020 Chief Complaint: General Complaint Present Illness HPI 55 y/o M with hx of GERD, HTN, pancreatitis, morbid Obesity, prior tobacco and alcohol abuse presented to ED on 08/16/20 with SOB, cough, weakness, RUQ pain and generalized body aches. Tested positive for COVID19 5 days ago. Denied [facility], melena, hematochezia, n/v/d. 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 His was diagnosed with Covid 19 and is staying in a different location - quarantined and not in contact with him. Allergies: Coded Allergies: No Known Allergies (Unverified , 10/01/14) Medication History Scheduled Famotidine (Pepcid Ac), 20 MG PO DAILY Multivitamins* (Multivitamins*), 1 TAB ORAL DAILY, (Reported) No Known Medications* (NKM - No Known Medications*), 0 ., (Reported) Pantoprazole Sodium (Protonix), 20 MG ORAL DAILY Miscellaneous Medications Calcium Carbonate (Calcium), 500 MG PO, (Reported) Patient History Healthcare decision maker Resuscitation status Advanced Directive on File Patient History Narrative Pmhx: as above Shx: Admits to previous tobacco and alcohol usage. Fhmx: non contributory Review of Systems All Other Systems: negative except mentioned in HPI Physical Exam Physical Exam Narrative General Appearance: WD/WN, moderate distress Lines, tubes and drains: peripheral HEENT: normocephalic Neck: non-tender Respiratory/Chest: respiratory distress, decreased breath sounds Cardiovascular/Chest: tachycardia Abdomen: tender, other - R UQ tenderness to palpation Extremities: non-tender Last 24 Hour Vital Signs Date Time Temp Pulse Resp B/P (MAP) Pulse Ox O2 Delivery O2 Flow Rate FiO2 08/16/20 15:28 98.3 25 121/78 100 Bi-pap 3.0 40 08/16/20 14:07 97 Nasal Cannula 3.0 08/16/20 12:30 98.3 99 22 121/78 98 Nasal Cannula 4.0 36 08/16/20 10:22 89 22 136/75 98 Nasal Cannula 4.0 36 08/16/20 09:59 92 16 97 Nasal Cannula 4.0 36 89 15 96 08/16/20 09:07 98.3 92 20 147/81 98 Room Air 08/16/20 09:07 88 20 Room Air 96 08/16/20 08:33 98.1 90 20 150/90 (110) 98 Room Air Laboratory Tests Test 08/16/20 09:10 08/16/20 09:23 08/16/20 10:00 White Blood Count 8.1 K/UL (4.8-10.8) Red Blood Count 5.39 M/UL (4.70-6.10) Hemoglobin 14.4 G/DL (14.2-18.0) Hematocrit 42.2 % (42.0-52.0) Mean Corpuscular Volume 78 FL (80-99) L Mean Corpuscular Hemoglobin 26.8 PG (27.0-31.0) L Mean Corpuscular Hemoglobin Concent 34.2 G/DL (32.0-36.0) Red Cell Distribution Width 15.7 % (11.6-14.8) H Platelet Count 326 K/UL (150-450) Mean Platelet Volume 9.1 FL (6.5-10.1) Neutrophils (%) (Auto) 38.7 % (45.0-75.0) L Lymphocytes (%) (Auto) 48.8 % (20.0-45.0) H Monocytes (%) (Auto) 7.7 % (1.0-10.0) Eosinophils (%) (Auto) 3.2 % (0.0-3.0) H Basophils (%) (Auto) 1.7 % (0.0-2.0) Prothrombin Time 10.7 SEC (9.30-11.50) Prothromb Time International Ratio 1.0 (0.9-1.1) Activated Partial Thromboplast Time 27 SEC (23-33) D-Dimer 0.79 mg/L FEU (0.00-0.49) H Sodium Level 139 MMOL/L (136-145) Potassium Level 3.8 MMOL/L (3.5-5.1) Chloride Level 102 MMOL/L (98-107) Carbon Dioxide Level 29 MMOL/L (21-32) Anion Gap 9 mmol/L (5-15) Blood Urea Nitrogen 21 mg/dL (7-18) H Creatinine 0.8 MG/DL (0.55-1.30) Estimat Glomerular Filtration Rate > 60 mL/min (>60) Glucose Level 132 MG/DL (74-106) H Lactic Acid Level 2.30 mmol/L (0.4-2.0) H 2.20 mmol/L (0.66-2.22) Calcium Level 8.3 MG/DL (8.5-10.1) L Magnesium Level 2.2 MG/DL (1.8-2.4) Total Bilirubin 0.2 MG/DL (0.2-1.0) Aspartate Amino Transf (AST/SGOT) 32 U/L (15-37) Alanine Aminotransferase (ALT/SGPT) 29 U/L (12-78) Alkaline Phosphatase 151 U/L (46-116) H Troponin I 0.060 ng/mL (0.000-0.056) Pro-B-Type Natriuretic Peptide 10 pg/mL (0-125) Total Protein 8.2 G/DL (6.4-8.2) Albumin 3.5 G/DL (3.4-5.0) Globulin 4.7 g/dL Albumin/Globulin Ratio 0.7 (1.0-2.7) L Arterial Blood pH 7.375 (7.350-7.450) Arterial Blood Partial Pressure CO2 48.7 mmHg (35.0-45.0) H Arterial Blood Partial Pressure O2 71.3 mmHg (75.0-100.0) L Arterial Blood HCO3 27.8 mmol/L (22.0-26.0) H Arterial Blood Oxygen Saturation 91.5 % (95-100) L Arterial Blood Base Excess 1.8 (-2-2) Pankaj Test Positive Microbiology Date/Time Source Procedure Growth Status 08/16/20 09:10 Nasopharynx SARS-CoV-2 RdRp Gene Assay - Final Complete 08/16/20 09:10 Nasal Nares - Final Complete 08/16/20 09:10 Nasal Nares - Final Complete Height (Feet): 5 Height (Inches): 4.00 Weight (Pounds): 250 Medications Current Medications Medications (Trade) Dose Ordered Sig/Edy Route PRN Reason Start Time Stop Time Status Last Admin Dose Admin Albuterol/ Ipratropium (Albuterol/ Ipratropium) 3 ml Q6H PRN HHN Shortness of Breath 08/16/20 10:30 08/21/20 10:29 Azithromycin 500 mg/Sodium Chloride 275 ml @ 275 mls/hr DAILY IV 08/17/20 09:00 08/21/20 00:00 Cefepime HCl 2 gm/ Dextrose 55 ml @ 110 mls/hr Q8H IVPB 08/16/20 16:00 08/23/20 15:59 Dexamethasone Sodium Phosphate (Decadron 10mg/ ml Inj) 6 mg DAILY IV 08/17/20 09:00 08/27/20 08:59 Dextrose (Dextrose 50%) 25 ml Q30M PRN IV Hypoglycemia 08/16/20 10:30 11/14/20 10:29 Dextrose (Dextrose 50%) 50 ml Q30M PRN IV Hypoglycemia 08/16/20 10:30 11/14/20 10:29 Enoxaparin Sodium (Lovenox) 40 mg Q24H SUBQ 08/17/20 09:00 11/15/20 08:59 Sodium Chloride 1,000 ml @ 75 mls/hr Q13H IV 08/16/20 12:00 09/15/20 11:59 08/16/20 12:28 Assessment/Plan Assessment/Plan: Abx: Cefepime 08/16- Azithromycin 08/16- Assessment: COVID19 PNA Acute hypoxic resp failure- on Bipap -08/16 rapid COVID PCR +, Influenza EIA neg CXR: There are mild bilateral mixed interstitial and alveolar infiltrates most prominent in the perihilar regions and lower lobes. This likely =represent pulmonary edema however pneumonia not excluded. Afebrile No leukocytosis Abd pain -Abd US: No cholelithiasis or evidence of acute cholecystitis. Morbid obesity GERD HTN pancreatitis prior tobacco and alcohol abuse Plan: -Contiue empiric Cefepime and Azithromycin #1 -Decadron #1 -Start remdesivir -f/u cx -Monitor CBC/CMP, temperatures -COVID19 isolation Thank you for consulting [facility]. Will continue to follow along with you. Discussed with RN and DR Muir. Latia Bedolla M.D. Aug 16, 2020 15:51
[2020-08-16] MEDS: Cefepime HCl 2 GM in D5W 55 ML IVPB SCH ×2 (16:00→23:38)
[2020-08-16] MEDS ORDERED: Morphine Sulfate 2mg/ml Inj(IV/IM USE ONLY) IVP PRN (16:15)
[2020-08-16] MEDS ORDERED: Morphine Sulfate 4mg/ml Inj (IV USE ONLY) IVP PRN (16:15)
--- NOTE | 2020-08-16 19:20 | NUR ---
NURSE NOTES: Pt received from NOAH Abreu and Karthik RN alert and oriented x4, primarily Icelandic-speaking. On Bipap 10/5 40%, saturating at 98%, denies chest pain or SOB. monitoring specialist on - Sinus Tachy (124). IV site asymptomatic and patent on R hand 20g, running to 1/2 NS at 75. Bed in lowest position, bed alarm on. Call light and belongings within reach.
[2020-08-16 20:00] VITALS: BP 150/96
[2020-08-16] MEDS ORDERED: Loading Dose:Remdesivir 200mg/NS 210ml IV SCH ×2 (21:00)
--- NOTE | 2020-08-16 21:15 | NUR ---
NURSE NOTES: Noted pt's HR to be sustaining in the 130s-140s, pt denies chest pain or SOB. VS - 150/96, HR 135, 98.2 temp, 98% on Bipap 10/5 40% FiO2. RN called and spoke with Dr Muir, communicated the following issue. Per Dr. Muir, start "metoprolol 2.5 mg IVP q4h PRN for HR over 130. Call me back if ineffective". Will carry out orders and continue to monitor pt.
[2020-08-16] MEDS ORDERED: Metoprolol Tartrate 5mg/5ml Inj IVP PRN (21:45)
--- NOTE | 2020-08-16 22:27 | NUR ---
NURSE NOTES: Pt given Metoprolol 2.5 mg IVP at 2213. Prior to med administration, VS - 135 HR, 150/93, temp 98.5, RR 21, 97% on Bipap. Pt denies chest pain or SOB. At 2235, VS - 148/92, HR 121, 97% on Bipap. Pt denies chest pain. Will continue to monitor patient.
[2020-08-17] VITALS: BP 145/93
[2020-08-17 04:00] VITALS: BP 140/94
[2020-08-17 06:02] LABS: BASOPHILS % (AUTO) 0.5 % (0.0-2.0); HEMATOCRIT 36.2 % (42.0-52.0); HEMOGLOBIN 12.8 G/DL (14.2-18.0); LYMPHOCYTES % (AUTO) 19.6 % (20.0-45.0); MEAN CORPUSCULAR VOLUME 77 FL (80-99); MONOCYTES % (AUTO) 3.1 % (1.0-10.0); NEUTROPHILS % (AUTO) 76.8 % (45.0-75.0); PLATELET COUNT 319 K/UL (150-450); RED BLOOD COUNT 4.69 M/UL (4.70-6.10); RED CELL DISTRIBUTION WIDTH 16.3 % (11.6-14.8)
[2020-08-17 06:52] LABS: ANION GAP 12 mmol/L (5-15); BLOOD UREA NITROGEN 25 mg/dL (7-18); CALCIUM 8.4 MG/DL (8.5-10.1); CARBON DIOXIDE 25 MMOL/L (21-32); CHLORIDE 100 MMOL/L (98-107); FERRITIN 27 NG/ML (8-388); POTASSIUM 4.4 MMOL/L (3.5-5.1); SODIUM 137 MMOL/L (136-145)
--- NOTE | 2020-08-17 07:16 | NUR ---
NURSE HAND-OFF REPORT: Important Events on Shift: Pt given Metoprolol 2.5 mg IVP at 2213 for 135 HR, pt tolerated well. Maintained Sinus Tachycardia 100-120s during shift. Patient Status: Stable Diet: regular Pending Orders: ABG Pending Results/Labs: ABG Pending notification: n/a Latest Vital Signs: Temperature 98.2 , Pulse 104 , B/P 140 /94 , Respiratory Rate 20 , O2 SAT 99 , Bi-pap, O2 Flow Rate 40.0 . Vital Sign Comment: WNL EKG Rhythm: Sinus Tachycardia Rhythm change?: N Notified?: N Response: Latest Agustin Fall Score: 20 Fall Risk: Low Risk Safety Measures: Call light Within Reach, Bed Alarm Zone 2, Side Rails Side Rails x2, Bed position Low and Locked. Fall Precautions: Yellow Socks Door Sign Patient Fall Education Report given to NOAH [place].
--- NOTE | 2020-08-17 07:47 | NUR ---
NURSE NOTES: Pt awake/alert in bed, breathing with continuous bipap, denies SOB and denies pain at this time. Vital signs stable with SR @ 85 on monitor. IV access RFA with 1/2 NS @ 75/ml. RT at bedside to draw ABG. Bed left in low position, side rails up x 2 and call light left near pt's hand.
[2020-08-17] MEDS: Cefepime HCl 2 GM in D5W 55 ML IVPB SCH ×3 (08:07→23:03)
[2020-08-17 08:11] VITALS: BP 145/95
--- NOTE | 2020-08-17 08:15 | NUR ---
RESPIRATORY NOTES PT taken off bipap and placed on 3L nasal cannula, so they may eat breakfast. PT does not complain of any respiratory distress. PT's SaO2 - 98%. RN Karthik aware. Will continue to monitor.
[2020-08-17] MEDS: Enoxaparin 40mg Inj SUBQ SCH (08:28)
[2020-08-17] MEDS: dexAMETHasone 10mg/ml Inj IV SCH (08:28)
[2020-08-17] MEDS: Azithromycin 500 MG in NS 275 ML IV SCH (09:00)
--- NOTE | 2020-08-17 11:18 | General Progress Note ---
Subjective Date patient seen: Aug 17, 2020 Time patient seen: 10:00 ROS Limited/Unobtainable: Yes Allergies: Coded Allergies: No Known Allergies (Unverified , 10/01/14) All Systems: reviewed and negative except above Subjective Feels better today, was able to eat OFF bipap and tolerating good oxygenation > 92 % on NC 2 lt , asking to go home today and explained that he is on Remdisivir IV Objective Last 24 Hour Vital Signs Date Time Temp Pulse Resp B/P (MAP) Pulse Ox O2 Delivery O2 Flow Rate FiO2 08/17/20 11:12 Nasal Cannula 3.0 08/17/20 08:11 98.1 85 20 145/95 (112) 98 08/17/20 08:08 40 08/17/20 08:08 Bi-pap 10.0 08/17/20 08:00 100 08/17/20 04:00 98.2 104 20 140/94 (109) 08/17/20 04:00 40 08/17/20 04:00 Bi-pap 40.0 08/17/20 04:00 104 08/17/20 03:46 96 22 99 40 08/17/20 00:00 116 08/17/20 00:00 98.1 105 20 145/93 (110) 08/17/20 00:00 Bi-pap 40.0 08/16/20 22:55 121 20 98 40 08/16/20 22:13 135 150/96 08/16/20 20:00 40 08/16/20 20:00 Bi-pap 40.0 08/16/20 20:00 98.2 125 22 150/96 (114) 08/16/20 19:27 124 23 98 40 08/16/20 19:21 127 08/16/20 18:00 98.1 08/16/20 16:00 113 08/16/20 16:00 Bi-pap 40.0 08/16/20 16:00 40 08/16/20 15:56 Bi-Pap 40.0 08/16/20 15:50 109 16 99 40 08/16/20 15:50 109 16 99 Bi-Pap 40 08/16/20 15:48 98.1 114 22 141/93 (109) 08/16/20 15:28 98.3 25 121/78 100 Bi-pap 3.0 40 08/16/20 14:07 97 Nasal Cannula 3.0 08/16/20 12:30 98.3 99 22 121/78 98 Nasal Cannula 4.0 36 Intake and Output 08/16/20 08/17/20 19:00 07:00 Intake Total 225 ml 1985 ml Balance 225 ml 1985 ml Intake Oral 100 ml 800 ml IV Total 125 ml 1185 ml # Voids 5 # Bowel Movements 6 Laboratory Tests 08/17/20 03:00: White Blood Count 11.0H, Red Blood Count 4.69L, Hemoglobin 12.8L, Hematocrit 36.2L, Mean Corpuscular Volume 77L, Mean Corpuscular Hemoglobin 27.4, Mean Corpuscular Hemoglobin Concent 35.5, Red Cell Distribution Width 16.3H, Platelet Count 319, Mean Platelet Volume 9.3, Neutrophils (%) (Auto) 76.8H, Lymphocytes (%) (Auto) 19.6L, Monocytes (%) (Auto) 3.1, Eosinophils (%) (Auto) 0.0, Basophils (%) (Auto) 0.5, Fibrinogen 252, D-Dimer 0.63H, Sodium Level 137, Potassium Level 4.4, Chloride Level 100, Carbon Dioxide Level 25, Anion Gap 12, Blood Urea Nitrogen 25H, Creatinine 1.0, Estimat Glomerular Filtration Rate > 60, Glucose Level 118H, Calcium Level 8.4L, Ferritin 27, Lactate Dehydrogenase 273H, C-Reactive Protein, Quantitative 0.5, HIV (1&2) Antibody Rapid Negative 08/17/20 07:50: Arterial Blood pH 7.441, Arterial Blood Partial Pressure CO2 37.7, Arterial Blood Partial Pressure O2 143.7H, Arterial Blood HCO3 25.1, Arterial Blood Oxygen Saturation 98.2, Arterial Blood Base Excess 1.1, Pankaj Test Positive Height (Feet): 5 Height (Inches): 4.00 Weight (Pounds): 238 General Appearance: WD/WN EENT: PERRL/EOMI Neck: non-tender Cardiovascular: normal rate Respiratory/Chest: lungs clear Abdomen: non tender Neurologic: fourdrinier machine tender II-XII grossly normal Assessment/Plan Status: stable, not improved Assessment/Plan: 55 y/o M obese admitted to the Hospital due to: # Acute respiratory failure most likely secondary to Co-Sars 2 ( Covid 19 ) pne [place] Improved oxygenation noted today and able to be on NC O2 support. Cefepime and Azithromycin ordered Pulmonary consulation ID consultation for Remdisivir therapy Dexamethasone started Bipap support is not needed at this time. Downgrade to med surg unit # R upper quadrant pain in the setting of recent alcohol binge US completed and no evidence of cirrhosis noted Monitor closely for risk of alcoholic hepatitis Librium PRN for risk of etoh withdrawal Counselling will be provided for alcohol moderation # Obesity Dietary education DVT ppx with LMWH Gi ppx with Pepcid Actv as tolerated FULL CODE Heather Muir MD Aug 17, 2020 11:18
[2020-08-17 12:00] VITALS: BP 139/88
--- NOTE | 2020-08-17 14:12 | NUR ---
NURSE NOTES: Pt transferred to 409 wearing surgical mask, breathing easily on 2 lpm nasal cannula, denies SOB and denies pain at this time along with IV pole, abx and belongings. Chart/charge nurse notes and labels taken separately in sealed bag. Report given to NOAH Nguyen.
[2020-08-17 14:16] LABS: BILIRUBIN,DIRECT 0.1 MG/DL (0.0-0.3)
--- NOTE | 2020-08-17 14:16 | Pulmonology Progress Note ---
Subjective ROS Limited/Unobtainable: Yes Allergies: Coded Allergies: No Known Allergies (Unverified , 10/01/14) All Systems: reviewed and negative except above Objective Last 24 Hour Vital Signs Date Time Temp Pulse Resp B/P (MAP) Pulse Ox O2 Delivery O2 Flow Rate FiO2 08/17/20 12:17 2.0 08/17/20 12:17 107 08/17/20 12:00 97.8 86 20 139/88 (105) 97 08/17/20 11:12 Nasal Cannula 3.0 08/17/20 08:11 98.1 85 20 145/95 (112) 98 08/17/20 08:08 40 08/17/20 08:08 Bi-pap 10.0 08/17/20 08:00 100 08/17/20 04:00 98.2 104 20 140/94 (109) 08/17/20 04:00 40 08/17/20 04:00 Bi-pap 40.0 08/17/20 04:00 104 08/17/20 03:46 96 22 99 40 08/17/20 00:00 116 08/17/20 00:00 98.1 105 20 145/93 (110) 08/17/20 00:00 Bi-pap 40.0 08/16/20 22:55 121 20 98 40 08/16/20 22:13 135 150/96 08/16/20 20:00 40 08/16/20 20:00 Bi-pap 40.0 08/16/20 20:00 98.2 125 22 150/96 (114) 08/16/20 19:27 124 23 98 40 08/16/20 19:21 127 08/16/20 18:00 98.1 08/16/20 16:00 113 08/16/20 16:00 Bi-pap 40.0 08/16/20 16:00 40 08/16/20 15:56 Bi-Pap 40.0 08/16/20 15:50 109 16 99 40 08/16/20 15:50 109 16 99 Bi-Pap 40 08/16/20 15:48 98.1 114 22 141/93 (109) 08/16/20 15:28 98.3 25 121/78 100 Bi-pap 3.0 40 Intake and Output 08/16/20 08/17/20 19:00 07:00 Intake Total 225 ml 1985 ml Balance 225 ml 1985 ml Intake Oral 100 ml 800 ml IV Total 125 ml 1185 ml # Voids 5 # Bowel Movements 6 Microbiology Date/Time Source Procedure Growth Status 08/16/20 09:10 Nasopharynx SARS-CoV-2 RdRp Gene Assay - Final Complete 08/16/20 09:10 Nasal Nares - Final Complete 08/16/20 09:10 Nasal Nares - Final Complete Laboratory Tests 08/17/20 03:00: White Blood Count 11.0H, Red Blood Count 4.69L, Hemoglobin 12.8L, Hematocrit 36.2L, Mean Corpuscular Volume 77L, Mean Corpuscular Hemoglobin 27.4, Mean Corpuscular Hemoglobin Concent 35.5, Red Cell Distribution Width 16.3H, Platelet Count 319, Mean Platelet Volume 9.3, Neutrophils (%) (Auto) 76.8H, Lymphocytes (%) (Auto) 19.6L, Monocytes (%) (Auto) 3.1, Eosinophils (%) (Auto) 0.0, Basophils (%) (Auto) 0.5, Fibrinogen 252, D-Dimer 0.63H, Sodium Level 137, Potassium Level 4.4, Chloride Level 100, Carbon Dioxide Level 25, Anion Gap 12, Blood Urea Nitrogen 25H, Creatinine 1.0, Estimat Glomerular Filtration Rate > 60, Glucose Level 118H, Calcium Level 8.4L, Ferritin 27, Direct Bilirubin [Pending], Aspartate Amino Transf (AST/SGOT) [Pending], Alanine Aminotransferase (ALT/SGPT) [Pending], Lactate Dehydrogenase 273H, C-Reactive Protein, Quantitative 0.5, HIV (1&2) Antibody Rapid Negative 08/17/20 07:50: Arterial Blood pH 7.441, Arterial Blood Partial Pressure CO2 37.7, Arterial Blood Partial Pressure O2 143.7H, Arterial Blood HCO3 25.1, Arterial Blood Oxygen Saturation 98.2, Arterial Blood Base Excess 1.1, Pankaj Test Positive Current Medications Medications (Trade) Dose Ordered Sig/Edy Route PRN Reason Start Time Stop Time Status Last Admin Dose Admin Acetaminophen (Tylenol) 650 mg Q4H PRN ORAL Mild Pain (Pain Scale 1-3) 08/16/20 16:15 09/15/20 16:14 Albuterol/ Ipratropium (Albuterol/ Ipratropium) 3 ml Q6H PRN HHN Shortness of Breath 08/16/20 10:30 08/21/20 10:29 Azithromycin 500 mg/Sodium Chloride 275 ml @ 275 mls/hr DAILY IV 08/17/20 09:00 08/21/20 00:00 08/17/20 09:00 Cefepime HCl 2 gm/ Dextrose 55 ml @ 110 mls/hr Q8H IVPB 08/16/20 16:00 08/23/20 15:59 08/17/20 08:07 Dexamethasone Sodium Phosphate (Decadron 10mg/ ml Inj) 6 mg DAILY IV 08/17/20 09:00 08/25/20 09:01 08/17/20 08:28 Dextrose (Dextrose 50%) 25 ml Q30M PRN IV Hypoglycemia 08/16/20 10:30 11/14/20 10:29 Dextrose (Dextrose 50%) 50 ml Q30M PRN IV Hypoglycemia 08/16/20 10:30 11/14/20 10:29 Enoxaparin Sodium (Lovenox) 40 mg Q24H SUBQ 08/17/20 09:00 11/15/20 08:59 08/17/20 08:28 Metoprolol Tartrate (Lopressor) 2.5 mg Q4H PRN IVP for HR over 130. 08/16/20 21:45 11/14/20 21:44 08/16/20 22:13 Morphine Sulfate (Morphine Sulfate) 2 mg EVERY 3 HOURS PRN IVP moderate pain 4 - 6 08/16/20 16:15 08/23/20 16:14 08/16/20 17:30 Morphine Sulfate (Morphine Sulfate) 4 mg EVERY 3 HOURS PRN IVP Severe Pain (Pain Scale 7-10) 08/16/20 16:15 08/23/20 16:14 Remdesivir 100 mg/ Sodium Chloride 250 ml @ 250 mls/hr Q24H IV 08/17/20 21:00 08/20/20 21:59 Sodium Chloride 1,000 ml @ 75 mls/hr Q13H IV 08/16/20 12:00 09/15/20 11:59 08/17/20 05:41 Gurvinder Gregorio Aug 17, 2020 14:16
--- NOTE | 2020-08-17 14:30 | NUR ---
NURSE NOTES: Pt came up to unit via hospital bed in stable condition and w/all belongings accounted for. IV site intact/asymptomatic; skin intact; and pt in no apparent respiratory distress. Will continue to monitor.
[2020-08-17 16:00] VITALS: BP 140/87
--- NOTE | 2020-08-17 16:53 | Pulmonology Progress Note ---
Subjective ROS Limited/Unobtainable: Yes Interval Events: None enw Constitutional: Reports: no symptoms HEENT: Repors: no symptoms Respiratory: Reports: no symptoms Cardiovascular: Reports: no symptoms Gastrointestinal/Abdominal: Reports: no symptoms Allergies: Coded Allergies: No Known Allergies (Unverified , 10/01/14) All Systems: reviewed and negative except above Objective Last 24 Hour Vital Signs Date Time Temp Pulse Resp B/P (MAP) Pulse Ox O2 Delivery O2 Flow Rate FiO2 08/17/20 16:00 98.2 100 20 140/87 (104) 97 08/17/20 12:17 2.0 08/17/20 12:17 107 08/17/20 12:00 97.8 86 20 139/88 (105) 97 08/17/20 11:12 Nasal Cannula 3.0 08/17/20 08:11 98.1 85 20 145/95 (112) 98 08/17/20 08:08 40 08/17/20 08:08 Bi-pap 10.0 08/17/20 08:00 100 08/17/20 07:00 102 20 100 40 08/17/20 04:00 98.2 104 20 140/94 (109) 08/17/20 04:00 40 08/17/20 04:00 Bi-pap 40.0 08/17/20 04:00 104 08/17/20 03:46 96 22 99 40 08/17/20 00:00 116 08/17/20 00:00 98.1 105 20 145/93 (110) 08/17/20 00:00 Bi-pap 40.0 08/16/20 22:55 121 20 98 40 08/16/20 22:13 135 150/96 08/16/20 20:00 40 08/16/20 20:00 Bi-pap 40.0 08/16/20 20:00 98.2 125 22 150/96 (114) 08/16/20 19:27 124 23 98 40 08/16/20 19:21 127 08/16/20 18:00 98.1 Intake and Output 08/16/20 08/17/20 19:00 07:00 Intake Total 225 ml 1985 ml Balance 225 ml 1985 ml Intake Oral 100 ml 800 ml IV Total 125 ml 1185 ml # Voids 5 # Bowel Movements 6 General Appearance: no acute distress HEENT: normocephalic Respiratory: chest wall non-tender, lungs clear Cardiovascular: normal peripheral pulses, normal rate Abdomen: normal bowel sounds Microbiology Date/Time Source Procedure Growth Status 08/16/20 09:10 Nasopharynx SARS-CoV-2 RdRp Gene Assay - Final Complete 08/16/20 09:10 Nasal Nares - Final Complete 08/16/20 09:10 Nasal Nares - Final Complete Laboratory Tests 08/17/20 03:00: White Blood Count 11.0H, Red Blood Count 4.69L, Hemoglobin 12.8L, Hematocrit 36.2L, Mean Corpuscular Volume 77L, Mean Corpuscular Hemoglobin 27.4, Mean Corpuscular Hemoglobin Concent 35.5, Red Cell Distribution Width 16.3H, Platelet Count 319, Mean Platelet Volume 9.3, Neutrophils (%) (Auto) 76.8H, Lymphocytes (%) (Auto) 19.6L, Monocytes (%) (Auto) 3.1, Eosinophils (%) (Auto) 0.0, Basophils (%) (Auto) 0.5, Fibrinogen 252, D-Dimer 0.63H, Sodium Level 137, Potassium Level 4.4, Chloride Level 100, Carbon Dioxide Level 25, Anion Gap 12, Blood Urea Nitrogen 25H, Creatinine 1.0, Estimat Glomerular Filtration Rate > 60, Glucose Level 118H, Calcium Level 8.4L, Ferritin 27, Direct Bilirubin 0.1, Aspartate Amino Transf (AST/SGOT) 42H, Alanine Aminotransferase (ALT/SGPT) 42, Lactate Dehydrogenase 273H, C-Reactive Protein, Quantitative 0.5, HIV (1&2) Antibody Rapid Negative 08/17/20 07:50: Arterial Blood pH 7.441, Arterial Blood Partial Pressure CO2 37.7, Arterial Blood Partial Pressure O2 143.7H, Arterial Blood HCO3 25.1, Arterial Blood Oxygen Saturation 98.2, Arterial Blood Base Excess 1.1, Pankaj Test Positive Current Medications Medications (Trade) Dose Ordered Sig/Edy Route PRN Reason Start Time Stop Time Status Last Admin Dose Admin Acetaminophen (Tylenol) 650 mg Q4H PRN ORAL Mild Pain (Pain Scale 1-3) 08/16/20 16:15 09/15/20 16:14 Albuterol/ Ipratropium (Albuterol/ Ipratropium) 3 ml Q6H PRN HHN Shortness of Breath 08/16/20 10:30 08/21/20 10:29 Azithromycin 500 mg/Sodium Chloride 275 ml @ 275 mls/hr DAILY IV 08/17/20 09:00 08/21/20 00:00 08/17/20 09:00 Cefepime HCl 2 gm/ Dextrose 55 ml @ 110 mls/hr Q8H IVPB 08/16/20 16:00 08/23/20 15:59 08/17/20 15:08 Dexamethasone Sodium Phosphate (Decadron 10mg/ ml Inj) 6 mg DAILY IV 08/17/20 09:00 08/25/20 09:01 08/17/20 08:28 Dextrose (Dextrose 50%) 25 ml Q30M PRN IV Hypoglycemia 08/16/20 10:30 11/14/20 10:29 Dextrose (Dextrose 50%) 50 ml Q30M PRN IV Hypoglycemia 08/16/20 10:30 11/14/20 10:29 Enoxaparin Sodium (Lovenox) 40 mg Q24H SUBQ 08/17/20 09:00 11/15/20 08:59 08/17/20 08:28 Metoprolol Tartrate (Lopressor) 2.5 mg Q4H PRN IVP for HR over 130. 08/16/20 21:45 11/14/20 21:44 08/16/20 22:13 Morphine Sulfate (Morphine Sulfate) 2 mg EVERY 3 HOURS PRN IVP moderate pain 4 - 6 08/16/20 16:15 08/23/20 16:14 08/16/20 17:30 Morphine Sulfate (Morphine Sulfate) 4 mg EVERY 3 HOURS PRN IVP Severe Pain (Pain Scale 7-10) 08/16/20 16:15 08/23/20 16:14 Remdesivir 100 mg/ Sodium Chloride 250 ml @ 250 mls/hr Q24H IV 08/17/20 21:00 08/20/20 21:59 Sodium Chloride 1,000 ml @ 75 mls/hr Q13H IV 08/16/20 12:00 09/15/20 11:59 08/17/20 05:41 Assessment/Plan Assessment/Plan IMPRESSION: 1. COVID-19 pneumonia. 2. History of previous GERD and pancreatitis. DISCUSSION: Continue remdesivir and Decadron. Continue oxygen Saturating well on nasal o2 Pulmonary hygiene. I will follow carefully. Lillie Terry Omar Syed MD Aug 17, 2020 16:53
--- NOTE | 2020-08-17 19:09 | NUR ---
NURSE HAND-OFF: Important Events on Shift: Pt transferred to unit and sating above 95% on RA. Patient Status: Stable Diet: Regular Pending Orders: None Pending Results/Labs: None Pending MD notification: None Latest Vital Signs: Temperature 98.2 , Pulse 100 , B/P 140 /87 , Respiratory Rate 20 , O2 SAT 97 , Room Air, O2 Flow Rate 2.0 . Vital Sign Comment: Stable Latest Agustin Fall Score: 20 Fall Risk: Low Risk Safety Measures: Call light Within Reach, Bed Alarm Zone 2, Side Rails Side Rails x2, Bed position Low and Locked. Fall Precautions: Yellow Socks Door Sign Patient Fall Education Report given to NOAH Bellamy.
--- NOTE | 2020-08-17 19:20 | NUR ---
NURSE NOTES: Received report from cali rm. patient on bed, awake and verbally responsive. on room air, no sob. denies any pain or discomfort. iv access on the RFA running 1/2 ns @ 75 ml/hr. ambulates. uses urinal. reiterated to call and ask for assistance to prevent fall or injury. call light and light button within easy reach. bed locked and in lowest position. will continue plan of care.
[2020-08-17 20:00] VITALS: BP 142/82
[2020-08-17] MEDS: Maintenance Dose:Remdesivir 100mg/NS 230ml x 4 Doses IV SCH ×2 (21:03)
[2020-08-18] VITALS: BP 145/79
[2020-08-18 04:00] VITALS: BP 137/79
--- NOTE | 2020-08-18 06:14 | NUR ---
NURSE HAND-OFF: Important Events on Shift: REMDESIVIR FIRST DOSE GIVEN Patient Status: STABLE Diet: REGULAR Pending Orders: Pending Results/Labs: Pending MD notification: Latest Vital Signs: Temperature 97.6 , Pulse 85 , B/P 137 /79 , Respiratory Rate 20 , O2 SAT 98 , Room Air, O2 Flow Rate 2.0 . Vital Sign Comment: Latest Agustin Fall Score: 20 Fall Risk: Low Risk Safety Measures: Call light Within Reach, Bed Alarm Zone 1, Side Rails Side Rails x2, Bed position Low and Locked. Fall Precautions: Yellow Socks Door Sign Patient Fall Education Addendum: 08/18/20 at 0749 by Virginia Brown RN HAND-OFF: Report given to cali mortensen.
--- NOTE | 2020-08-18 07:32 | NUR ---
NURSE NOTES: Pt. received from NOAH Bellamy. Pt. AAOx4, AAOx4, eating breakfast, breathing even and unlabored on room air, no indications of respiratory distress, no complaints of pain at this time. IV right FA 20g intact and patent, with 1/NS at 75cc. Bed low and locked, side rails x2 up, and call light in reach.
[2020-08-18 07:46] LABS: BASOPHILS % (AUTO) 0.4 % (0.0-2.0); EOSINOPHILS % (AUTO) 0.1 % (0.0-3.0); HEMATOCRIT 33.4 % (42.0-52.0); HEMOGLOBIN 12.2 G/DL (14.2-18.0); LYMPHOCYTES % (AUTO) 21.6 % (20.0-45.0); MEAN CORPUSCULAR VOLUME 79 FL (80-99); MONOCYTES % (AUTO) 7.8 % (1.0-10.0); NEUTROPHILS % (AUTO) 70.2 % (45.0-75.0); PLATELET COUNT 228 K/UL (150-450); RED BLOOD COUNT 4.24 M/UL (4.70-6.10); RED CELL DISTRIBUTION WIDTH 14.7 % (11.6-14.8); WHITE BLOOD COUNT 8.5 K/UL (4.8-10.8)
[2020-08-18 08:00] VITALS: BP_SYST 134; BP_SYST 144; BP_DIAS 77; BP_DIAS 84
[2020-08-18] MEDS: dexAMETHasone 10mg/ml Inj IV SCH (08:00)
--- NOTE | 2020-08-18 08:00 | NUR ---
NURSE NOTES: Received report from Brendan ZAMORA, pt in laying in bed with no signs of distress or other issues at this time. IV on the right FA gauge#18m heplock. call light within reach, bed in lowest position. side rales up x2. I will f/u as needed.
[2020-08-18] MEDS: Cefepime HCl 2 GM in D5W 55 ML IVPB SCH ×2 (08:01→16:03)
[2020-08-18] MEDS: Enoxaparin 40mg Inj SUBQ SCH (08:03)
[2020-08-18 08:06] LABS: ALANINE AMINOTRANSFERASE 54 U/L (12-78); ALBUMIN 3.2 G/DL (3.4-5.0); ALBUMIN/GLOBULIN RATIO 0.8 (1.0-2.7); ALKALINE PHOSPHATASE 117 U/L (46-116); ANION GAP 8 mmol/L (5-15); ASPARTATE AMINO TRANSFERASE 59 U/L (15-37); BILIRUBIN,TOTAL 0.7 MG/DL (0.2-1.0); BLOOD UREA NITROGEN 25 mg/dL (7-18); CALCIUM 8.6 MG/DL (8.5-10.1); CARBON DIOXIDE 25 MMOL/L (21-32); CHLORIDE 99 MMOL/L (98-107); CREATININE 0.8 MG/DL (0.55-1.30); POTASSIUM 4.6 MMOL/L (3.5-5.1); SODIUM 132 MMOL/L (136-145)
--- NOTE | 2020-08-18 09:05 | NUR ---
NURSE NOTES: Report given to Sánchez ZAMORA, pt in stable condition.
--- NOTE | 2020-08-18 09:27 | Infectious Diseases Prog Note ---
Assessment/Plan 55yo M with: Afebrile No leukocytosis COVID-19 PNA, severe Acute hypoxic resp failure - on Bipap >> RA 12 BCx neg 08/16 rapid COVID PCR +, Influenza EIA neg CXR: There are mild bilateral mixed interstitial and alveolar infiltrates most prominent in the perihilar regions and lower lobes. This likely represent pulmonary edema however pneumonia not excluded. Abd pain Abd US: No cholelithiasis or evidence of acute cholecystitis. Morbid obesity GERD HTN Pancreatitis Prior tobacco and alcohol abuse Plan: Cont remdesvir #3/5 Cont dexamethasone #3/10 Cont empiric Cefepime and Azithromycin #3/5 Monitor CBC/CMP Monitor temp curve, hemodynamics Monitor resp status D/w RN Thank you for this consult. [facility] will continue to follow. Subjective Allergies: Coded Allergies: No Known Allergies (Unverified , 10/01/14) AF Now on RA, doing well, reports breathing is stable, walking around wo issues WBC 8.5 NAD Objective Last 24 Hour Vital Signs Date Time Temp Pulse Resp B/P (MAP) Pulse Ox O2 Delivery O2 Flow Rate FiO2 08/18/20 08:00 99.5 75 18 144/77 (99) 94 08/18/20 04:00 97.6 85 20 137/79 (98) 98 08/18/20 00:00 97.9 82 20 145/79 (101) 99 08/17/20 21:00 Room Air 08/17/20 20:00 97.6 89 20 142/82 (102) 98 08/17/20 16:00 98.2 100 20 140/87 (104) 97 08/17/20 14:30 Room Air 08/17/20 12:17 2.0 08/17/20 12:17 107 08/17/20 12:00 97.8 86 20 139/88 (105) 97 08/17/20 11:12 Nasal Cannula 3.0 Height (Feet): 5 Height (Inches): 4.00 Weight (Pounds): 238 Gen: NAD HEENT: NCAT Pulm: BL chest rise on RA Abd: Non-distended Ext: No c/c/e Skin: No visible rashes Neuro: Awake, alert, interactive Microbiology Date/Time Source Procedure Growth Status 08/16/20 09:10 Nasopharynx SARS-CoV-2 RdRp Gene Assay - Final Complete 08/16/20 09:10 Nasal Nares - Final Complete 08/16/20 09:10 Nasal Nares - Final Complete 08/16/20 09:10 Blood Blood Culture - Preliminary NO GROWTH AFTER 24 HOURS Resulted 08/16/20 09:05 Blood Blood Culture - Preliminary NO GROWTH AFTER 24 HOURS Resulted Laboratory Tests Test 08/18/20 04:00 White Blood Count 8.5 K/UL (4.8-10.8) Red Blood Count 4.24 M/UL (4.70-6.10) L Hemoglobin 12.2 G/DL (14.2-18.0) L Hematocrit 33.4 % (42.0-52.0) L Mean Corpuscular Volume 79 FL (80-99) L Mean Corpuscular Hemoglobin 28.7 PG (27.0-31.0) Mean Corpuscular Hemoglobin Concent 36.4 G/DL (32.0-36.0) H Red Cell Distribution Width 14.7 % (11.6-14.8) Platelet Count 228 K/UL (150-450) Mean Platelet Volume 9.0 FL (6.5-10.1) Neutrophils (%) (Auto) 70.2 % (45.0-75.0) Lymphocytes (%) (Auto) 21.6 % (20.0-45.0) Monocytes (%) (Auto) 7.8 % (1.0-10.0) Eosinophils (%) (Auto) 0.1 % (0.0-3.0) Basophils (%) (Auto) 0.4 % (0.0-2.0) Sodium Level 132 MMOL/L (136-145) L Potassium Level 4.6 MMOL/L (3.5-5.1) Chloride Level 99 MMOL/L (98-107) Carbon Dioxide Level 25 MMOL/L (21-32) Anion Gap 8 mmol/L (5-15) Blood Urea Nitrogen 25 mg/dL (7-18) H Creatinine 0.8 MG/DL (0.55-1.30) Estimat Glomerular Filtration Rate > 60 mL/min (>60) Glucose Level 106 MG/DL (74-106) Calcium Level 8.6 MG/DL (8.5-10.1) Total Bilirubin 0.7 MG/DL (0.2-1.0) Direct Bilirubin 0.2 MG/DL (0.0-0.3) Aspartate Amino Transf (AST/SGOT) 59 U/L (15-37) H Alanine Aminotransferase (ALT/SGPT) 54 U/L (12-78) Alkaline Phosphatase 117 U/L (46-116) H Total Protein 7.3 G/DL (6.4-8.2) Albumin 3.2 G/DL (3.4-5.0) L Globulin 4.1 g/dL Albumin/Globulin Ratio 0.8 (1.0-2.7) L Current Medications Medications (Trade) Dose Ordered Sig/Edy Route PRN Reason Start Time Stop Time Status Last Admin Dose Admin Acetaminophen (Tylenol) 650 mg Q4H PRN ORAL Mild Pain (Pain Scale 1-3) 08/16/20 16:15 09/15/20 16:14 Albuterol/ Ipratropium (Combivent Respimat) 1 puff Q6H PRN INH Shortness of Breath 08/17/20 19:30 09/16/20 19:29 Azithromycin 500 mg/Sodium Chloride 275 ml @ 275 mls/hr DAILY IV 08/17/20 09:00 08/21/20 00:00 08/17/20 09:00 Cefepime HCl 2 gm/ Dextrose 55 ml @ 110 mls/hr Q8H IVPB 08/16/20 16:00 08/23/20 15:59 08/18/20 08:01 Dexamethasone Sodium Phosphate (Decadron 10mg/ ml Inj) 6 mg DAILY IV 08/17/20 09:00 08/25/20 09:01 08/18/20 08:00 Dextrose (Dextrose 50%) 25 ml Q30M PRN IV Hypoglycemia 08/16/20 10:30 11/14/20 10:29 Dextrose (Dextrose 50%) 50 ml Q30M PRN IV Hypoglycemia 08/16/20 10:30 11/14/20 10:29 Enoxaparin Sodium (Lovenox) 40 mg Q24H SUBQ 08/17/20 09:00 11/15/20 08:59 08/18/20 08:03 Metoprolol Tartrate (Lopressor) 2.5 mg Q4H PRN IVP for HR over 130. 08/16/20 21:45 11/14/20 21:44 08/16/20 22:13 Morphine Sulfate (Morphine Sulfate) 2 mg EVERY 3 HOURS PRN IVP moderate pain 4 - 6 08/16/20 16:15 08/23/20 16:14 08/16/20 17:30 Morphine Sulfate (Morphine Sulfate) 4 mg EVERY 3 HOURS PRN IVP Severe Pain (Pain Scale 7-10) 08/16/20 16:15 08/23/20 16:14 Remdesivir 100 mg/ Sodium Chloride 250 ml @ 250 mls/hr Q24H IV 08/17/20 21:00 08/20/20 21:59 08/17/20 21:03 Sodium Chloride 1,000 ml @ 75 mls/hr Q13H IV 08/16/20 12:00 09/15/20 11:59 08/18/20 03:00 Maria Elena Alegria M.D. Aug 18, 2020 09:26
--- NOTE | 2020-08-18 09:50 | Pulmonology Progress Note ---
Subjective ROS Limited/Unobtainable: Yes Interval Events: None enw Constitutional: Reports: no symptoms HEENT: Repors: no symptoms Respiratory: Reports: no symptoms Cardiovascular: Reports: no symptoms Gastrointestinal/Abdominal: Reports: no symptoms Allergies: Coded Allergies: No Known Allergies (Unverified , 10/01/14) All Systems: reviewed and negative except above Objective Last 24 Hour Vital Signs Date Time Temp Pulse Resp B/P (MAP) Pulse Ox O2 Delivery O2 Flow Rate FiO2 08/18/20 08:00 99.5 75 18 144/77 (99) 94 08/18/20 04:00 97.6 85 20 137/79 (98) 98 08/18/20 00:00 97.9 82 20 145/79 (101) 99 08/17/20 21:00 Room Air 08/17/20 20:00 97.6 89 20 142/82 (102) 98 08/17/20 16:00 98.2 100 20 140/87 (104) 97 08/17/20 14:30 Room Air 08/17/20 12:17 2.0 08/17/20 12:17 107 08/17/20 12:00 97.8 86 20 139/88 (105) 97 08/17/20 11:12 Nasal Cannula 3.0 Intake and Output 08/17/20 08/18/20 19:00 07:00 Intake Total 300 ml 260 ml Balance 300 ml 260 ml Intake Oral 300 ml 260 ml # Voids 1 3 Objective 08/18/2020 pt laying in bed; normal work of breathing on RA; Feels better today, was able to eat;OFF bipap General Appearance: no acute distress HEENT: normocephalic Respiratory: chest wall non-tender, lungs clear Cardiovascular: normal peripheral pulses, normal rate Abdomen: normal bowel sounds Microbiology Date/Time Source Procedure Growth Status 08/16/20 09:10 Nasopharynx SARS-CoV-2 RdRp Gene Assay - Final Complete 08/16/20 09:10 Nasal Nares - Final Complete 08/16/20 09:10 Nasal Nares - Final Complete 08/16/20 09:10 Blood Blood Culture - Preliminary NO GROWTH AFTER 24 HOURS Resulted 08/16/20 09:05 Blood Blood Culture - Preliminary NO GROWTH AFTER 24 HOURS Resulted Laboratory Tests 08/18/20 04:00: White Blood Count 8.5, Red Blood Count 4.24L, Hemoglobin 12.2L, Hematocrit 33.4L , Mean Corpuscular Volume 79L, Mean Corpuscular Hemoglobin 28.7, Mean Corpuscular Hemoglobin Concent 36.4H, Red Cell Distribution Width 14.7, Platelet Count 228, Mean Platelet Volume 9.0, Neutrophils (%) (Auto) 70.2, Lymphocytes (%) (Auto) 21.6, Monocytes (%) (Auto) 7.8, Eosinophils (%) (Auto) 0.1, Basophils (%) (Auto) 0.4, Sodium Level 132L, Potassium Level 4.6, Chloride Level 99, Carbon Dioxide Level 25, Anion Gap 8, Blood Urea Nitrogen 25H, Creatinine 0.8, Estimat Glomerular Filtration Rate > 60, Glucose Level 106, Calcium Level 8.6, Total Bilirubin 0.7, Direct Bilirubin 0.2, Aspartate Amino Transf (AST/SGOT) 59H , Alanine Aminotransferase (ALT/SGPT) 54, Alkaline Phosphatase 117H, Total Protein 7.3, Albumin 3.2L, Globulin 4.1, Albumin/Globulin Ratio 0.8L Current Medications Medications (Trade) Dose Ordered Sig/Edy Route PRN Reason Start Time Stop Time Status Last Admin Dose Admin Acetaminophen (Tylenol) 650 mg Q4H PRN ORAL Mild Pain (Pain Scale 1-3) 08/16/20 16:15 09/15/20 16:14 Albuterol/ Ipratropium (Combivent Respimat) 1 puff Q6H PRN INH Shortness of Breath 08/17/20 19:30 09/16/20 19:29 Azithromycin 500 mg/Sodium Chloride 275 ml @ 275 mls/hr DAILY IV 08/17/20 09:00 08/21/20 00:00 08/17/20 09:00 Cefepime HCl 2 gm/ Dextrose 55 ml @ 110 mls/hr Q8H IVPB 08/16/20 16:00 08/23/20 15:59 08/18/20 08:01 Dexamethasone Sodium Phosphate (Decadron 10mg/ ml Inj) 6 mg DAILY IV 08/17/20 09:00 08/25/20 09:01 08/18/20 08:00 Dextrose (Dextrose 50%) 25 ml Q30M PRN IV Hypoglycemia 08/16/20 10:30 11/14/20 10:29 Dextrose (Dextrose 50%) 50 ml Q30M PRN IV Hypoglycemia 08/16/20 10:30 11/14/20 10:29 Enoxaparin Sodium (Lovenox) 40 mg Q24H SUBQ 08/17/20 09:00 11/15/20 08:59 08/18/20 08:03 Metoprolol Tartrate (Lopressor) 2.5 mg Q4H PRN IVP for HR over 130. 08/16/20 21:45 11/14/20 21:44 08/16/20 22:13 Morphine Sulfate (Morphine Sulfate) 2 mg EVERY 3 HOURS PRN IVP moderate pain 4 - 6 08/16/20 16:15 08/23/20 16:14 08/16/20 17:30 Morphine Sulfate (Morphine Sulfate) 4 mg EVERY 3 HOURS PRN IVP Severe Pain (Pain Scale 7-10) 08/16/20 16:15 08/23/20 16:14 Remdesivir 100 mg/ Sodium Chloride 250 ml @ 250 mls/hr Q24H IV 08/17/20 21:00 08/20/20 21:59 08/17/20 21:03 Sodium Chloride 1,000 ml @ 75 mls/hr Q13H IV 08/16/20 12:00 09/15/20 11:59 08/18/20 03:00 Assessment/Plan Assessment/Plan 1. COVID-19 pneumonia. - 08/16 rapid COVID PCR positive, Influenza EIA neg - Continue remdesivir and Decadron per ID - Abx per ID - Currently well saturated on RA 2. History of previous GERD and pancreatitis. Pulmonary hygiene. DVT PPx with lovenox The care of this patient was discussed with my supervising physician The history of Tobi Stevenson has been reviewed and management options for him have been examined and discussed by Chandana Rodriguez. I have person ally examined and interviewed the patient. Time spent for this encounter was approximately 31 minutes Gurvinder Gregorio Aug 18, 2020 09:50 Chandana Rodriguez MD Aug 18, 2020 17:33
[2020-08-18] MEDS: Azithromycin 500 MG in NS 275 ML IV SCH (09:57)
--- NOTE | 2020-08-18 10:35 | General Progress Note ---
Subjective Date patient seen: Aug 18, 2020 Time patient seen: 11:30 ROS Limited/Unobtainable: No Constitutional: Reports: no symptoms HEENT: Reports: no symptoms Cardiovascular: Reports: no symptoms Respiratory: Reports: no symptoms Gastrointestinal/Abdominal: Reports: no symptoms Genitourinary: Reports: no symptoms Neurologic/Psychiatric: Reports: no symptoms Endocrine: Reports: no symptoms Allergies: Coded Allergies: No Known Allergies (Unverified , 10/01/14) Subjective Feels better today, he is on Remdisivir IV Objective Last 24 Hour Vital Signs Date Time Temp Pulse Resp B/P (MAP) Pulse Ox O2 Delivery O2 Flow Rate FiO2 08/18/20 08:00 99.5 75 18 144/77 (99) 94 08/18/20 04:00 97.6 85 20 137/79 (98) 98 08/18/20 00:00 97.9 82 20 145/79 (101) 99 08/17/20 21:00 Room Air 08/17/20 20:00 97.6 89 20 142/82 (102) 98 08/17/20 16:00 98.2 100 20 140/87 (104) 97 08/17/20 14:30 Room Air 08/17/20 12:17 2.0 08/17/20 12:17 107 08/17/20 12:00 97.8 86 20 139/88 (105) 97 08/17/20 11:12 Nasal Cannula 3.0 Intake and Output 08/17/20 08/18/20 18:59 06:59 Intake Total 300 ml 260 ml Balance 300 ml 260 ml Intake Oral 300 ml 260 ml # Voids 1 3 Laboratory Tests 08/18/20 04:00: White Blood Count 8.5, Red Blood Count 4.24L, Hemoglobin 12.2L, Hematocrit 33.4L , Mean Corpuscular Volume 79L, Mean Corpuscular Hemoglobin 28.7, Mean Corpuscular Hemoglobin Concent 36.4H, Red Cell Distribution Width 14.7, Platelet Count 228, Mean Platelet Volume 9.0, Neutrophils (%) (Auto) 70.2, Lymphocytes (%) (Auto) 21.6, Monocytes (%) (Auto) 7.8, Eosinophils (%) (Auto) 0.1, Basophils (%) (Auto) 0.4, Sodium Level 132L, Potassium Level 4.6, Chloride Level 99, Carbon Dioxide Level 25, Anion Gap 8, Blood Urea Nitrogen 25H, Creatinine 0.8, Estimat Glomerular Filtration Rate > 60, Glucose Level 106, Calcium Level 8.6, Total Bilirubin 0.7, Direct Bilirubin 0.2, Aspartate Amino Transf (AST/SGOT) 59H , Alanine Aminotransferase (ALT/SGPT) 54, Alkaline Phosphatase 117H, Total Protein 7.3, Albumin 3.2L, Globulin 4.1, Albumin/Globulin Ratio 0.8L Height (Feet): 5 Height (Inches): 4.00 Weight (Pounds): 238 EENT: PERRL/EOMI Neck: normal alignment Cardiovascular: normal rate Respiratory/Chest: lungs clear Extremities: normal range of motion 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 Cefepime and Azithromycin ordered Pulmonary consulation ID consultation for Remdisivir therapy, needs to complete [address] Bipap support is not needed at this time. med surg unit # R upper quadrant pain in the setting of recent alcohol binge US completed and no evidence of cirrhosis noted Monitor closely for risk of alcoholic hepatitis Librium PRN for risk of etoh withdrawal Counselling will be provided for alcohol moderation # Obesity Dietary education DVT ppx with LMWH Gi ppx with Pepcid Actv as tolerated FULL CODE Heather Muir MD Aug 18, 2020 10:35
[2020-08-18 12:00] VITALS: BP 132/78
[2020-08-18 16:00] VITALS: BP 148/98
--- NOTE | 2020-08-18 16:07 | NUR ---
CASE MANAGEMENT:INITIAL REVIEW 55 YR OLD MALE BIBA FROM HOME CC;GENERAL COMPLAINT SI;DYSPNEA. COVID PNEUMONIA. HYPOXEMIA. N-STEMI. 98.3 99 22 150/90 96% 4L NC FIO2 36% BUN 21 AALP 151 TROP 0.060 D-DIMER 0.79 ABG pCO2 48.7 pO2 71.3 HCO3 27.8 O2 SAT 91.5 COVID RAPID ~ POSITIVE CXR ~ There are mild bilateral mixed interstitial and alveolar infiltrates most prominent in the perihilar regions and lower lobes. This likely represent pulmonary edema however pneumonia not excluded. ABD US ~ No cholelithiasis or evidence of acute cholecystitis. IS;PROVENTIL HHN ZITHROMAX IV CEFEPIME IV LASIX IV DECADRON IV DUO NEB HHN ASA PO ONCE ADMITTED TO MED SURG MED SURG STATUS DCP;FROM HOME
--- NOTE | 2020-08-18 19:13 | NUR ---
NURSE HAND-OFF: Important Events on Shift:[]IV started left FA 22g Patient Status: awake, stable Diet: regular Pending Orders: na Pending Results/Labs:na Pending MD notification:na Latest Vital Signs: Temperature 98.1 , Pulse 78 , B/P 148 /98 , Respiratory Rate 20 , O2 SAT 97 , Room Air, O2 Flow Rate 2.0 . Vital Sign Comment: stable Latest Agustin Fall Score: 20 Fall Risk: Low Risk Safety Measures: Call light Within Reach, Bed Alarm Zone 1, Side Rails Side Rails x2, Bed position Low and Locked. Fall Precautions: Yellow Socks Door Sign Patient Fall Education Report given to NOAH Valverde.
--- NOTE | 2020-08-18 19:36 | NUR ---
NURSE NOTES: Received pt from NOAH Cardona. AAO x 4, Ukrainian speaking, on room air. Ambulatory, denies pain, SOB, or discomfort. IV intact and running IVF. Bed locked, lowest position, alarm on, side rails up, call light within reach. Will continue to monitor.
[2020-08-18 20:00] VITALS: BP 148/91
[2020-08-18] MEDS: Maintenance Dose:Remdesivir 100mg/NS 230ml x 4 Doses IV SCH ×2 (21:16)
[2020-08-19] VITALS: BP 142/93
[2020-08-19] MEDS: Cefepime HCl 2 GM in D5W 55 ML IVPB SCH ×2 (00:22→09:09)
[2020-08-19 04:00] VITALS: BP 137/94
--- NOTE | 2020-08-19 06:01 | NUR ---
NURSE HAND-OFF: Important Events on Shift: Patient Status: stable Diet: reg Pending Orders: Pending Results/Labs:am labs Pending MD notification: Latest Vital Signs: Temperature 98.1 , Pulse 78 , B/P 137 /94 , Respiratory Rate 18 , O2 SAT 96 , Room Air, O2 Flow Rate 2.0 . Vital Sign Comment: [] Latest Agustin Fall Score: 20 Fall Risk: Low Risk Safety Measures: Call light Within Reach, Bed Alarm Zone 1, Side Rails Side Rails x2, Bed position Low and Locked. Fall Precautions: Yellow Socks Door Sign Patient Fall Education Addendum: 08/19/20 at 0736 by JAIDA JAMISON RN RN HAND-OFF: Report given to NOAH King.
[2020-08-19 06:52] LABS: ALANINE AMINOTRANSFERASE 64 U/L (12-78); ALBUMIN 3.1 G/DL (3.4-5.0); ALBUMIN/GLOBULIN RATIO 0.7 (1.0-2.7); ALKALINE PHOSPHATASE 114 U/L (46-116); ANION GAP 6 mmol/L (5-15); ASPARTATE AMINO TRANSFERASE 55 U/L (15-37); BILIRUBIN,DIRECT < 0.1 MG/DL (0.0-0.3); BILIRUBIN,TOTAL 0.6 MG/DL (0.2-1.0); BLOOD UREA NITROGEN 24 mg/dL (7-18); CARBON DIOXIDE 27 MMOL/L (21-32); CHLORIDE 99 MMOL/L (98-107); CREATININE 0.8 MG/DL (0.55-1.30); POTASSIUM 4.5 MMOL/L (3.5-5.1); SODIUM 132 MMOL/L (136-145)
[2020-08-19 07:20] LABS: BASOPHILS % (AUTO) 0.9 % (0.0-2.0); EOSINOPHILS % (AUTO) 0.1 % (0.0-3.0); HEMATOCRIT 35.7 % (42.0-52.0); HEMOGLOBIN 12.6 G/DL (14.2-18.0); MEAN CORPUSCULAR VOLUME 77 FL (80-99); MONOCYTES % (AUTO) 6.7 % (1.0-10.0); NEUTROPHILS % (AUTO) 71.4 % (45.0-75.0); PLATELET COUNT 207 K/UL (150-450); RED BLOOD COUNT 4.61 M/UL (4.70-6.10); RED CELL DISTRIBUTION WIDTH 14.4 % (11.6-14.8); WHITE BLOOD COUNT 11.4 K/UL (4.8-10.8)
[2020-08-19 08:00] VITALS: BP 131/65
--- NOTE | 2020-08-19 08:00 | NUR ---
NURSE NOTES: Received report from NOAH Valverde. Rounding done. Pt is a/o x 4, in bed. No SOB noted. Bed in lowest position, call light within reach. Will continue to monitor.
--- NOTE | 2020-08-19 08:55 | Infectious Diseases Prog Note ---
Assessment/Plan 55yo M with: Afebrile No leukocytosis COVID-19 PNA, severe Acute hypoxic resp failure - on Bipap >> RA 12/ BCx neg / rapid COVID PCR +, Influenza EIA neg CXR: There are mild bilateral mixed interstitial and alveolar infiltrates most prominent in the perihilar regions and lower lobes. This likely represent pulmonary edema however pneumonia not excluded. Abd pain Abd US: No cholelithiasis or evidence of acute cholecystitis. HIV screen neg Morbid obesity GERD HTN Pancreatitis Prior tobacco and alcohol abuse Plan: Cont remdesvir #4/5 Cont dexamethasone #4/10 Cont empiric Cefepime and Azithromycin #4/5 OK to d/c home today off therapy given pt doing so well, satting well on RA, and ambulatory sat 97%. Do not feel strongly about completing 5 day course of Remdesivir since pt has remained on RA. Would d/c home off steroids and off abx. Monitor CBC/CMP Monitor temp curve, hemodynamics Monitor resp status D/w RN Thank you for this consult. [facility] will continue to follow. Subjective Allergies: Coded Allergies: No Known Allergies (Unverified , 10/01/14) AF WBC 11.4 Remains on RA, satting 97% Feels good, no complaints Walking around wo issues Ambulatory sat 97% Objective Last 24 Hour Vital Signs Date Time Temp Pulse Resp B/P (MAP) Pulse Ox O2 Delivery O2 Flow Rate FiO2 08/19/20 04:00 98.1 78 18 137/94 (108) 96 08/19/20 00:00 97.9 70 18 142/93 (109) 97 08/18/20 21:00 Room Air 08/18/20 20:00 98.2 78 20 148/91 (110) 95 08/18/20 16:00 98.1 78 20 148/98 (115) 97 08/18/20 12:00 98.0 86 20 132/78 (96) 95 08/18/20 09:00 Room Air Height (Feet): 5 Height (Inches): 4.00 Weight (Pounds): 238 Gen: NAD HEENT: NCAT Pulm: BL chest rise on RA Abd: Non-distended Ext: No c/c/e Skin: No visible rashes Neuro: Awake, alert, interactive Microbiology Date/Time Source Procedure Growth Status 08/16/20 09:10 Nasopharynx SARS-CoV-2 RdRp Gene Assay - Final Complete 08/16/20 09:10 Nasal Nares - Final Complete 08/16/20 09:10 Nasal Nares - Final Complete 08/16/20 09:10 Blood Blood Culture - Preliminary NO GROWTH AFTER 48 HOURS Resulted 08/16/20 09:05 Blood Blood Culture - Preliminary NO GROWTH AFTER 48 HOURS Resulted Laboratory Tests Test 08/19/20 04:00 White Blood Count 11.4 K/UL (4.8-10.8) H Red Blood Count 4.61 M/UL (4.70-6.10) L Hemoglobin 12.6 G/DL (14.2-18.0) L Hematocrit 35.7 % (42.0-52.0) L Mean Corpuscular Volume 77 FL (80-99) L Mean Corpuscular Hemoglobin 27.3 PG (27.0-31.0) Mean Corpuscular Hemoglobin Concent 35.2 G/DL (32.0-36.0) Red Cell Distribution Width 14.4 % (11.6-14.8) Platelet Count 207 K/UL (150-450) Mean Platelet Volume 10.0 FL (6.5-10.1) Neutrophils (%) (Auto) 71.4 % (45.0-75.0) Lymphocytes (%) (Auto) 21.0 % (20.0-45.0) Monocytes (%) (Auto) 6.7 % (1.0-10.0) Eosinophils (%) (Auto) 0.1 % (0.0-3.0) Basophils (%) (Auto) 0.9 % (0.0-2.0) Sodium Level 132 MMOL/L (136-145) L Potassium Level 4.5 MMOL/L (3.5-5.1) Chloride Level 99 MMOL/L (98-107) Carbon Dioxide Level 27 MMOL/L (21-32) Anion Gap 6 mmol/L (5-15) Blood Urea Nitrogen 24 mg/dL (7-18) H Creatinine 0.8 MG/DL (0.55-1.30) Estimat Glomerular Filtration Rate > 60 mL/min (>60) Glucose Level 102 MG/DL (74-106) Calcium Level 8.0 MG/DL (8.5-10.1) L Total Bilirubin 0.6 MG/DL (0.2-1.0) Direct Bilirubin < 0.1 MG/DL (0.0-0.3) Aspartate Amino Transf (AST/SGOT) 55 U/L (15-37) H Alanine Aminotransferase (ALT/SGPT) 64 U/L (12-78) Alkaline Phosphatase 114 U/L (46-116) Total Protein 7.3 G/DL (6.4-8.2) Albumin 3.1 G/DL (3.4-5.0) L Globulin 4.2 g/dL Albumin/Globulin Ratio 0.7 (1.0-2.7) L Current Medications Medications (Trade) Dose Ordered Sig/Edy Route PRN Reason Start Time Stop Time Status Last Admin Dose Admin Acetaminophen (Tylenol) 650 mg Q4H PRN ORAL Mild Pain (Pain Scale 1-3) 08/16/20 16:15 09/15/20 16:14 Albuterol/ Ipratropium (Combivent Respimat) 1 puff Q6H PRN INH Shortness of Breath 08/17/20 19:30 09/16/20 19:29 Azithromycin 500 mg/Sodium Chloride 275 ml @ 275 mls/hr DAILY IV 08/17/20 09:00 08/21/20 00:00 08/18/20 09:57 Cefepime HCl 2 gm/ Dextrose 55 ml @ 110 mls/hr Q8H IVPB 08/16/20 16:00 08/23/20 15:59 08/19/20 00:22 Dexamethasone Sodium Phosphate (Decadron 10mg/ ml Inj) 6 mg DAILY IV 08/17/20 09:00 08/25/20 09:01 08/18/20 08:00 Dextrose (Dextrose 50%) 25 ml Q30M PRN IV Hypoglycemia 08/16/20 10:30 11/14/20 10:29 Dextrose (Dextrose 50%) 50 ml Q30M PRN IV Hypoglycemia 08/16/20 10:30 11/14/20 10:29 Enoxaparin Sodium (Lovenox) 40 mg Q24H SUBQ 08/17/20 09:00 11/15/20 08:59 08/18/20 08:03 Morphine Sulfate (Morphine Sulfate) 2 mg EVERY 3 HOURS PRN IVP moderate pain 4 - 6 08/16/20 16:15 12/12/20 16:14 08/16/20 17:30 Morphine Sulfate (Morphine Sulfate) 4 mg EVERY 3 HOURS PRN IVP Severe Pain (Pain Scale 7-10) 08/16/20 16:15 08/23/20 16:14 Remdesivir 100 mg/ Sodium Chloride 250 ml @ 250 mls/hr Q24H IV 08/17/20 21:00 08/20/20 21:59 08/18/20 21:16 Sodium Chloride 1,000 ml @ 75 mls/hr Q13H IV 08/16/20 12:00 09/15/20 11:59 08/19/20 04:45 Maria Elena Alegria M.D. Aug 19, 2020 08:55
--- NOTE | 2020-08-19 09:08 | Pulmonology Progress Note ---
Subjective ROS Limited/Unobtainable: No Interval Events: None enw Constitutional: Reports: no symptoms HEENT: Repors: no symptoms Respiratory: Reports: no symptoms Cardiovascular: Reports: no symptoms Gastrointestinal/Abdominal: Reports: no symptoms Allergies: Coded Allergies: No Known Allergies (Unverified , 10/01/14) All Systems: reviewed and negative except above Objective Last 24 Hour Vital Signs Date Time Temp Pulse Resp B/P (MAP) Pulse Ox O2 Delivery O2 Flow Rate FiO2 08/19/20 04:00 98.1 78 18 137/94 (108) 96 08/19/20 00:00 97.9 70 18 142/93 (109) 97 08/18/20 21:00 Room Air 08/18/20 20:00 98.2 78 20 148/91 (110) 95 08/18/20 16:00 98.1 78 20 148/98 (115) 97 08/18/20 12:00 98.0 86 20 132/78 (96) 95 Intake and Output 08/18/20 08/19/20 19:00 07:00 Intake Total 1657.5 ml 750 ml Output Total 800 ml 2500 ml Balance 857.5 ml -1750 ml Intake Oral 840 ml IV Total 817.5 ml 750 ml Output Urine Total 800 ml 2500 ml # Bowel Movements 1 1 Objective 08/19/2020 pt watching tv in bed; well saturated on RA; feels better 08/18/2020 pt laying in bed; normal work of breathing on RA; Feels better today, was able to eat;OFF bipap General Appearance: no acute distress HEENT: normocephalic Respiratory: chest wall non-tender, lungs clear Cardiovascular: normal peripheral pulses, normal rate Abdomen: normal bowel sounds Microbiology Date/Time Source Procedure Growth Status 08/16/20 09:10 Nasopharynx SARS-CoV-2 RdRp Gene Assay - Final Complete 08/16/20 09:10 Nasal Nares - Final Complete 08/16/20 09:10 Nasal Nares - Final Complete 08/16/20 09:10 Blood Blood Culture - Preliminary NO GROWTH AFTER 48 HOURS Resulted Laboratory Tests 08/19/20 04:00: White Blood Count 11.4H, Red Blood Count 4.61L, Hemoglobin 12.6L, Hematocrit 35.7L, Mean Corpuscular Volume 77L, Mean Corpuscular Hemoglobin 27.3, Mean Corpuscular Hemoglobin Concent 35.2, Red Cell Distribution Width 14.4, Platelet Count 207, Mean Platelet Volume 10.0, Neutrophils (%) (Auto) 71.4, Lymphocytes (%) (Auto) 21.0, Monocytes (%) (Auto) 6.7, Eosinophils (%) (Auto) 0.1, Basophils (%) (Auto) 0.9, Sodium Level 132L, Potassium Level 4.5, Chloride Level 99, Carbon Dioxide Level 27, Anion Gap 6, Blood Urea Nitrogen 24H, Creatinine 0.8, Estimat Glomerular Filtration Rate > 60, Glucose Level 102, Calcium Level 8.0L, Total Bilirubin 0.6, Direct Bilirubin < 0.1, Aspartate Amino Transf (AST/SGOT) 55H, Alanine Aminotransferase (ALT/SGPT) 64, Alkaline Phosphatase 114, Total Protein 7.3, Albumin 3.1L, Globulin 4.2, Albumin/Globulin Ratio 0.7L Current Medications Medications (Trade) Dose Ordered Sig/Edy Route PRN Reason Start Time Stop Time Status Last Admin Dose Admin Acetaminophen (Tylenol) 650 mg Q4H PRN ORAL Mild Pain (Pain Scale 1-3) 08/16/20 16:15 09/15/20 16:14 Albuterol/ Ipratropium (Combivent Respimat) 1 puff Q6H PRN INH Shortness of Breath 08/17/20 19:30 09/16/20 19:29 Azithromycin 500 mg/Sodium Chloride 275 ml @ 275 mls/hr DAILY IV 08/17/20 09:00 08/21/20 00:00 08/18/20 09:57 Cefepime HCl 2 gm/ Dextrose 55 ml @ 110 mls/hr Q8H IVPB 08/16/20 16:00 08/23/20 15:59 08/19/20 00:22 Dexamethasone Sodium Phosphate (Decadron 10mg/ ml Inj) 6 mg DAILY IV 08/17/20 09:00 08/25/20 09:01 08/18/20 08:00 Dextrose (Dextrose 50%) 25 ml Q30M PRN IV Hypoglycemia 08/16/20 10:30 11/14/20 10:29 Dextrose (Dextrose 50%) 50 ml Q30M PRN IV Hypoglycemia 08/16/20 10:30 11/14/20 10:29 Enoxaparin Sodium (Lovenox) 40 mg Q24H SUBQ 08/17/20 09:00 11/15/20 08:59 08/18/20 08:03 Morphine Sulfate (Morphine Sulfate) 2 mg EVERY 3 HOURS PRN IVP moderate pain 4 - 6 08/16/20 16:15 08/23/20 16:14 08/16/20 17:30 Morphine Sulfate (Morphine Sulfate) 4 mg EVERY 3 HOURS PRN IVP Severe Pain (Pain Scale 7-10) 08/16/20 16:15 08/23/20 16:14 Remdesivir 100 mg/ Sodium Chloride 250 ml @ 250 mls/hr Q24H IV 08/17/20 21:00 08/20/20 21:59 08/18/20 21:16 Sodium Chloride 1,000 ml @ 75 mls/hr Q13H IV 08/16/20 12:00 09/15/20 11:59 08/19/20 04:45 Assessment/Plan Assessment/Plan 1. COVID-19 pneumonia. - 08/16 rapid COVID PCR positive, Influenza EIA neg - Continue remdesivir and Decadron per ID - Abx per ID - Currently well saturated on RA 2. History of previous GERD and pancreatitis. Pulmonary hygiene. DVT PPx with lovenox The care of this patient was discussed with my supervising physician Time spent for this encounter was approximately 31 minutes The patient was seen and examined at bedside and all new and available data was reviewed in the patients chart. I agree with the above findings, impression, and plan. (Patient was seen earlier today. Signature timestamp does not reflect patient encounter time) Gurvinder Serrato MD Aug 19, 2020 09:08 Chandana Rodriguez MD Aug 19, 2020 16:25
[2020-08-19] MEDS: dexAMETHasone 10mg/ml Inj IV SCH (09:09)
[2020-08-19] MEDS: Enoxaparin 40mg Inj SUBQ SCH (09:09)
--- NOTE | 2020-08-19 09:10 | General Progress Note ---
Subjective Date patient seen: Aug 19, 2020 Time patient seen: 11:00 ROS Limited/Unobtainable: No Allergies: Coded Allergies: No Known Allergies (Unverified , 10/01/14) Subjective Feels better today, he is on Remdisivir IV Objective Last 24 Hour Vital Signs Date Time Temp Pulse Resp B/P (MAP) Pulse Ox O2 Delivery O2 Flow Rate FiO2 08/19/20 04:00 98.1 78 18 137/94 (108) 96 08/19/20 00:00 97.9 70 18 142/93 (109) 97 08/18/20 21:00 Room Air 08/18/20 20:00 98.2 78 20 148/91 (110) 95 08/18/20 16:00 98.1 78 20 148/98 (115) 97 08/18/20 12:00 98.0 86 20 132/78 (96) 95 Intake and Output 08/18/20 08/19/20 19:00 07:00 Intake Total 1657.5 ml 750 ml Output Total 800 ml 2500 ml Balance 857.5 ml -1750 ml Intake Oral 840 ml IV Total 817.5 ml 750 ml Output Urine Total 800 ml 2500 ml # Bowel Movements 1 1 Laboratory Tests 08/19/20 04:00: White Blood Count 11.4H, Red Blood Count 4.61L, Hemoglobin 12.6L, Hematocrit 35.7L, Mean Corpuscular Volume 77L, Mean Corpuscular Hemoglobin 27.3, Mean Corpuscular Hemoglobin Concent 35.2, Red Cell Distribution Width 14.4, Platelet Count 207, Mean Platelet Volume 10.0, Neutrophils (%) (Auto) 71.4, Lymphocytes (%) (Auto) 21.0, Monocytes (%) (Auto) 6.7, Eosinophils (%) (Auto) 0.1, Basophils (%) (Auto) 0.9, Sodium Level 132L, Potassium Level 4.5, Chloride Level 99, Carbon Dioxide Level 27, Anion Gap 6, Blood Urea Nitrogen 24H, Creatinine 0.8, Estimat Glomerular Filtration Rate > 60, Glucose Level 102, Calcium Level 8.0L, Total Bilirubin 0.6, Direct Bilirubin < 0.1, Aspartate Amino Transf (AST/SGOT) 55H, Alanine Aminotransferase (ALT/SGPT) 64, Alkaline Phosphatase 114, Total Protein 7.3, Albumin 3.1L, Globulin 4.2, Albumin/Globulin Ratio 0.7L Height (Feet): 5 Height (Inches): 4.00 Weight (Pounds): 238 EENT: PERRL/EOMI Neck: non-tender Cardiovascular: normal peripheral pulses, gallop/S3 Respiratory/Chest: decreased breath sounds Abdomen: soft Extremities: normal range of motion Neurologic: contract administration coordinator II-XII grossly normal Assessment/Plan Status: stable, not improved Assessment/Plan: 55 y/o M obese admitted to the Hospital due to: # Acute respiratory failure most likely secondary to Co-Sars 2 ( Covid 19 ) pneumonia Improved oxygenation and able to be on NC O2 support and room air as well.. Cefepime and Azithromycin completed Pulmonary consulation ID consultation for Remdisivir therapy can now be stopped per ID Dexamethasone in place - can be stopped per ID. The patient is medically stable to discharge home with no medication needed. Discussed with ID data processing consultant. Patient should complete a total of 14 day quarantine at home from the time of diagnosis. Heather Muir MD Aug 19, 2020 09:10
[2020-08-19] MEDS: Azithromycin 500 MG in NS 275 ML IV SCH (09:49)
[2020-08-19 12:00] VITALS: BP 129/93
--- NOTE | 2020-08-19 13:13 | Discharge Instructions ---
Discharge Instructions Discharge Instructions Resume Normal Activity?: Yes Activity: as tolerated Special Instructions NEED TO quarantine for 9 more days at home - do not go outside the home and wear a face covering mask. No need to get new covid test unless NEW FEVER - COUGH - SHORTNESS OF BREATH. For Congestive Heart Failure Reminder Report to your physician any weight gain of 5 pounds or more in one week. Heather Muir MD Aug 19, 2020 13:13
--- NOTE | 2020-08-19 13:17 | Discharge Summary ---
Discharge Summary Hospital Course Date of Admission Aug 16, 2020 at 10:12 Date of Discharge 08/19/2020 Admitting Diagnosis DYSPNEA,COVID + HPI Tobi Stevenson is a 55 year old male who was admitted on Aug 16, 2020 at 10:12 for Dyspnea, Covid+ Consultations ID Dr. [facility] Dr. Rodriguez Hospital Course 55 y/o M obese admitted to the Hospital due to: # Acute respiratory failure most likely secondary to Co-Sars 2 ( Covid 19 ) pneumonia Improved oxygenation and able to be on NC O2 support and room air as well.. Cefepime and Azithromycin completed 5 day course Pulmonary consulation ID consultation for Remdisivir therapy can now be stopped per ID now Dexamethasone in place - can be stopped per ID. Room Air saturation on ambulati on was 97% The patient is medically stable to discharge home with no medication needed. Discussed with ID senior internet sales consultant. Patient should complete a total of 14 day quarantine at home from the time of diagnosis. # Alcohol abuse and counselling discussed with the patient as he had a binge prior to admission, 3 bottles of whiskey in 4 days. No acute withdrawal was noted in the Hospital. # Acute kidney injury was treated with IVF and improved to a baseline creatinine of 1 Discharge Medications Continued Medications: Calcium Carbonate (Calcium) 500 Mg Tab.chew 500 MG PO Famotidine (Pepcid Ac) 20 Mg Tablet 20 MG PO DAILY, #12 TAB Multivitamins* (Multivitamins*) 1 Each Tablet 1 TAB ORAL DAILY Pantoprazole Sodium (Protonix) 20 Mg Tablet.dr 20 MG ORAL DAILY for 30 Days, TAB Discontinued Medications: No Known Medications* (NKM - No Known Medications*) . 0 ., 0 Refills Discharge Discharge Vital Signs Last Vital Signs Date Time Temp Pulse Resp B/P (MAP) Pulse Ox O2 Delivery O2 Flow Rate FiO2 08/19/20 12:00 98.1 86 18 129/93 (105) 97 08/19/20 09:00 Room Air 08/17/20 12:17 2.0 08/17/20 08:08 40 Discharge Disposition Patient was discharged to home Discharge Diagnoses: (1) Hypoxemia (2) Pneumonia due to COVID-19 virus (3) Alcohol abuse (4) Acute renal failure Discharge Instructions Discharge Instructions Activity: as tolerated Heather Muir MD Aug 19, 2020 13:17
--- NOTE | 2020-08-19 15:55 | NUR ---
NURSE NOTES: Discharge instruction was given to pt including 2 weeks quarantine. Verbalized understanding. IV access was removed. Pt discharged in stable condition.
--- NOTE | 2020-08-19 18:15 | NUR ---
INSURANCE DC SUMMARY/INSTRUCTIONS/ CLINICALS/REVIEW (08/16-08/19) FX [phone] [id number] [phone]
== END 2020-08-19 15:55 | disposition home or self-care (01) | DRG 137 ==
LOC: EDBD 08:37 → EMR 08:52 → EDBEDREQ 09:36 → EDBEDREQSVC 09:36 → EDBEDREQ 09:37 → 2W 10:12 → EDBEDREQ 14:24 → 2W 15:20 → 4E 08-17 13:50
PROC: 5A09357 Assistance with Respiratory Ventilation, Less than 24 Consecutive Hours, Continuous Positive Airway Pressure (ICD-10-PCS; principal; 2020-08-16)
DX: U07.1 COVID-19 (principal); J12.89 Other viral pneumonia; J96.01 Acute respiratory failure with hypoxia; E66.01 Morbid (severe) obesity due to excess calories; I10 Essential (primary) hypertension; Z68.41 Body mass index [BMI] 40.0-44.9, adult; K85.20 Alcohol induced acute pancreatitis without necrosis or infection; F10.10 Alcohol abuse, uncomplicated; N17.9 Acute kidney failure, unspecified; K21.9 Gastro-esophageal reflux disease without esophagitis
CPT/HCPCS: 36415; 71045; 76700; 80048; 80053; 82248; 82728; 82803; 83605; 83615; 83735; 83880; 84450; 84460; 84484; 85025; 85379; 85384; 85610; 85730; 86140; 86703; 86710; 87040; 94640; 94660; 94664; 96365; 96367; 96375; 99291; J3490; J7620; U0002